=== PATIENT | male | born 1975 | race Caucasian/White ===

== ENCOUNTER → 2018-09-22 08:32 | Outpatient (CLI) | payer OTHER, SELFPAY ==
[2018-09-22 12:12] LABS: Hematocrit 43.1 % (40-54); Hemoglobin 14.5 g/dl (13.0-16.5); Mean Corp Hgb Conc 33.6 g/gl (32-36); Mean Corpuscular Hgb 29.7 pg (27.0-32.0); Mean Corpuscular Volume 88.3 fL (80-94); RBC Distribution Width CV 14.2 % (11.6-14.6); Red Blood Count 4.88 M/mm3 (4.6-6.2); White Blood Count 5.8 K/mm3 (4.4-11.0)
[2018-09-22 12:13] LABS: Absolute Lymphocyte Count 1.93 X10^3/ul (0.83-4.51); Absolute Neutrophil Count 3.1 X10^3/uL (2.0-7.7); Basophil# 0.04 X10^3/uL; Basophil% 0.7 % (0-1); Eosinophil# 0.26 X10^3/uL; Eosinophils% 4.5 % (0-5); Lymphocyte # 1.93 X10^3/ul (4.0); Lymphocyte % 33.1 % (19-41); Mean Platelet Vol. 9.5 fl (6.2-12.0); Monocyte# 0.49 X10^3/uL; Monocyte% 8.4 % (0-10); Neutrophil % 53.1 % (47-70); Platelet Count 257 K/mm3 (150-450); RBC Distribution Width SD 45.8 fl (35.1-43.9)
[2018-09-22 12:18] LABS: POSITIVE COUNT NO; POSITIVE DIFFERENTIAL NO; POSITIVE MORPHOLOGY NO
[2018-09-22 12:42] LABS: Hemoglobin A1c 5.8 % (4.2-6.3)
[2018-09-22 12:47] LABS: Anion Gap 10 (5-15); BUN 15 mg/dL (7-18); BUN/Creat Ratio 20.7 RATIO (10-20); Calcium,Total 8.8 mg/dL (8.5-10.1); Chloride 104 mmol/L (98-107); Creatinine, Serum 0.72 mg/dL (0.70-1.30); EST Glomerular Filtration Rate 126 mL/min (>60); Est Glom Filt Rate - Afr Amer 153 mL/min (>60); Glucose 108 mg/dL (74-106); Potassium 3.8 mmol/L (3.5-5.1); Sodium Level 139 mmol/L (136-145); Thyroid Stim Hormone (TSH) 1.15 uIU/mL (0.358-3.74)
--- OUTSIDE RECORDS SUMMARY | 2018-12-24 19:47 | XMS RPT_ITS ---
:1975 Author Organization [facility] Care Team Providers Name Role Phone Antolin Barron Attending Unavailable Antolin Barron Primary Care Unavailable PROBLEMS PROBLEMS No Problem Records FoundPROCEDURES PROCEDURES No Procedure Records FoundRESULTS RESULTS CBC W/DIFF, AUTOMATED Collected: 09/22/2018 Status: F Source: [place] 8:35 AM [facility] REPOSITORY TYPE CODE TESTS RESULT OUT OF RANGE REFERENCE UNITS LAB L100.1000 4.4-11.0 K/mm3 Normal WBC 5.8 LAB L100.1200 4.6-6.2 M/mm3 Normal RBC 4.88 LAB L100.1300 13.0-16.5 g/dl Normal HGB 14.5 LAB L100.1400 40-54 % Normal HCT 43.1 LAB L100.1500 80-94 fL Normal MCV 88.3 LAB L100.1600 27.0-32.0 pg Normal MCH 29.7 LAB L100.1700 32-36 g/gl Normal MCHC 33.6 LAB L100.1810 11.6-14.6 % Normal RDW CV 14.2 LAB L100.1820 35.1-43.9 fl High RDW SD 45.8 LAB L100.1900 150-450 K/mm3 Normal PLT 257 LAB L100.2000 6.2-12.0 fl Normal MPV 9.5 LAB L100.2100 47-70 % Normal NEUT% 53.1 LAB L100.2200 19-41 % Normal LY% 33.1 LAB L100.2300 0-10 % Normal MONO% 8.4 LAB L100.2400 0-5 % Normal EO% 4.5 LAB L100.2500 0-1 % Normal BASO% 0.7 LAB L100.2550 0.0-0.9 % Normal IM GRAN % 0.200 Result Comment: IG% - Immature Granulocytes (promyelocytes, myelocytes and metamyelocytes) > 1% indicates that a LEFT SHIFT is Present. LAB L100.2620 2.0-7.7 X10 3/uL Normal Absolute Neut 3.1 LAB L100.2720 0.83-4.51 X10 3/ul Normal Absolute Lymph 1.93 Performed By: #### L100.0100 #### [facility] [address] [place], [address] HEMOGLOBIN A1C Collected: 09/22/2018 Status: F Source: [place] 8:35 AM [facility] REPOSITORY TYPE CODE TESTS RESULT OUT OF RANGE REFERENCE UNITS LAB L501.9985 4.2-6.3 % Normal HGB A1C 5.8 Performed By: #### L501.9985 #### [facility] [address] [place], [address] BASIC METABOLIC Collected: 09/22/2018 Status: F Source: [place] PROFILE (BMP) 8:35 AM [facility] REPOSITORY TYPE CODE TESTS RESULT OUT OF RANGE REFERENCE UNITS LAB L501.0100 74-106 mg/dL High GLU 108 Result Comment: Fasting Glucose result from 100 to 125 mg/dL suggests IMPAIRED HOMEOSTASIS per A.D.A. criteria. Please note revised GLUCOSE reference range effective 2017. LAB L501.1000 7-18 mg/dL Normal BUN 15 LAB L501.1100 0.70-1.30 mg/dL Normal CREAT,SERUM 0.72 Result Comment: The validity of the calculated GFR AND GFRAA in patients over 70 years has not been determined. Clinical correlation is essential. LAB L501.1110 >60 mL/min Normal EST GFR 126 Result Comment: Non- GFR Calc LAB L501.1115 >60 mL/min Normal EST GFR - AA 153 Result Comment: GFR Calc LAB L501.1300 10-20 RATIO High BUN/CRE 20.7 LAB L501.2200 8.5-10.1 mg/dL CA Normal 8.8 LAB L501.5300 136-145 mmol/L NA Normal 139 LAB L501.5600 3.5-5.1 mmol/L K Normal 3.8 LAB L501.5900 98-107 mmol/L CL Normal 104 LAB L501.6100 21.0-32.0 mmol/L Normal CO2 25.0 LAB L501.6200 5-15 Normal GAP 10 Performed By: #### L500.2500, L501.9520 #### [facility] [address] [place], [address] THYROID STIM HORMONE Collected: 09/22/2018 Status: F Source: [place] (TSH) 8:35 AM [facility] REPOSITORY TYPE CODE TESTS RESULT OUT OF RANGE REFERENCE UNITS LAB L501.9520 0.358-3.74 uIU/mL Normal TSH 1.15 Performed By: #### L500.2500, L501.9520 #### [facility] [address] [place], [address] ALLERGIES ALLERGIES DATE TYPE / CODE NAME / CODE REACTION SEVERITY SOURCE 08/06/2017 Drug ibuprofen/F Anaphylaxis Unknown [facility] Allergy/4160 [id number]([facility] [address](SNOMED XNORM) Repository CT) ENCOUNTERS ENCOUNTERS ADMIT/DISCHARGE ACCOUNT ADMITTING ENCOUNTER LOCATION SOURCE NUMBER CLASS 09/22/2018 [id number] [facility] ing:[facility] Repository PAYERS PAYERS ENCOUNTER GUARANTOR PAYER SUBSCRIBER SOURCE 09/22/2018 Michele Coronado Primary Michele De Andaoster [id number] Sr Insurance:Ana Paula DelgadoB: [address] Number: [id number] [address]Yrk: [id number] Repository [phone] (HP) e Date:[id number] ELFEGO SANCHEZ [id number]: 09/22/2018 Secondary NOT GIVENUNK Pankaj Insurance:SELF PAY [facility] Number: Effective Repository Date:2018-09-22
== END ==
PROVIDERS: Family Provider Family Medicine; PCP Family Medicine; Visit Provider Family Medicine
DX: I10 Essential (primary) hypertension (principal); E78.5 Hyperlipidemia, unspecified; E66.01 Morbid (severe) obesity due to excess calories; R73.01 Impaired fasting glucose
CPT/HCPCS: 36415; 80048; 83036; 84443; 85025

== ENCOUNTER 2019-12-11 05:24 | Day surgery (SDC) | payer OTHER, SELFPAY ==
--- NOTE | 2019-11-26 17:09 | EKG12_ITS ---
Test Reason : PRE OP Blood Pressure : / mmHG Vent. Rate : 078 BPM Atrial Rate : 078 BPM P-R Int : 136 ms QRS Dur : 108 ms QT Int : 382 ms P-R-T Axes : 035 005 024 degrees QTc Int : 435 ms Normal sinus rhythm Normal ECG Confirmed by MARIBELL KING, DEMETRIO ([id number]), purchase request editor JOVANA LE ([id number]) on 11/30/2019 2:36:28 PM Referred By: Miguelangel Jackson Confirmed By:PABLITO REYNA MD
[2019-11-26 17:19] LABS: Mean Corp Hgb Conc 33.3 g/dL (32-36); Mean Corpuscular Hgb 29.6 pg (27.0-32.0); Mean Corpuscular Volume 88.9 fL (80-94); Mean Platelet Vol. 8.8 fl (6.2-12.0); Platelet Count 295 K/mm3 (150-450); RBC Distribution Width CV 14.4 % (11.6-14.6); RBC Distribution Width SD 46.9 fl (35.1-43.9); Red Blood Count 5.06 M/mm3 (4.6-6.2); White Blood Count 8.7 K/mm3 (4.4-11.0)
[2019-11-26 18:02] LABS: Anion Gap 7 (5-15); BUN 13 mg/dL (7-18); BUN/Creat Ratio 18.9 RATIO (10-20); Calcium,Total 9.4 mg/dL (8.5-10.1); Chloride 102 mmol/L (98-107); Creatinine, Serum 0.69 mg/dL (0.70-1.30); EST Glomerular Filtration Rate 133 mL/min (>60); Est Glom Filt Rate - Afr Amer 161 mL/min (>60); Glucose 96 mg/dL (74-106); Potassium 3.7 mmol/L (3.5-5.1); Sodium Level 136 mmol/L (136-145)
[2019-11-26 19:37] LABS: Hemoglobin A1c 5.5 % (4.2-6.3)
[2019-12-11] VITALS (14 sets, daily range): BP systolic 110–158; BP diastolic 51–96; PULSE 68–83; RESP 16–18; TEMP 36.1–36.8; O2SAT 92–100; BMI 64.7
[2019-12-11] MEDS: Lactated Ringers 1,000 ML 100 ML IV ×3 (07:20→10:47)
[2019-12-11] MEDS: Bupiv/Epi 0.5% Mpf 30 ML Vial (09:00)
[2019-12-11] MEDS: Epinephrine (1 mg/ml) 1 MG/ML VIAL (09:00)
--- NOTE | 2019-12-11 11:14 | PCM.OPRPT ---
Report of Operation Date of Procedure: 12/11/19 Pre-Operative Diagnosis: SAIS, AC arthrosis, roator cuff tear right shoulder Post-Operative Diagnosis: same Surgery/Procedure Performed:: ASD, Mikaela procedure, rotator cuff repair containers sales representative: Miguelangel Jackson Type of Anesthesia:: General Anesthesiologist: Jose Alfredo West - Admit VTE Documentation VTE Present on Admission: No VTE Mechan Device Prophylaxis: SCD's, Thigh High SHAYLA Hose VTE Pharm Prophylaxis ordered?: No Reason prophylaxis not ordered:: Treatment Not Indicated
[2019-12-11] MEDS: HYDROcodone Bitartrate/Apap 5/325 Tablet PO (11:31)
== END 2019-12-11 14:05 | disposition home or self-care (01) ==
LOC: SDC 05:27 → AC 05:27
PROVIDERS: Orthopaedic Surgery; PCP Family Medicine; Referring Provider Physician Assistant; Visit Provider Physician Assistant
PROC: (CPT 29827; principal; 2019-12-11 06:55)
DX: S46.012A Strain of muscle(s) and tendon(s) of the rotator cuff of left shoulder, initial encounter (principal); S46.011A Strain of muscle(s) and tendon(s) of the rotator cuff of right shoulder, initial encounter; Z72.0 Tobacco use; I10 Essential (primary) hypertension; W17.89XA Other fall from one level to another, initial encounter
CPT/HCPCS: 01630; 29824; 29827; 36415; 80048; 83036; 85027; 93005; J7120; J2405

== ENCOUNTER → 2020-02-09 14:42 | Outpatient (CLI) | payer OTHER, SELFPAY ==
[2020-01-20 13:23] VITALS: BMI 64.7
--- NOTE | 2020-02-09 14:43 | CT_ITS ---
STUDY: CT CHEST WITHOUT CONTRAST REASON FOR EXAM: Male, 44 years old. LUNG NODULE RADIATION DOSAGE (If Supplied By Facility): CTDIvol = ( 28.71 ) mGy, DLP = ( 1140.28 ) mGycm TECHNIQUE: Transaxial imaging was performed without the administration of intravenous contrast material. Multiplanar coronal and sagittal images were reformatted. Individualized dose optimization techniques were used for this CT. COMPARISON: None. FINDINGS: Small benign-appearing bilateral axillary lymph nodes. Elevation of the right hemidiaphragm. Mild increase in the markings in the apex of the right lung suggestive of a linear scarring. Mild degree of pleural thickening and increased linear markings along the lateral aspect of the right lower lobe suggestive of a scarring following trauma or postsurgical changes. There is no demonstrated pleural abnormality. Normal heart and pericardium. There are multiple small lymph nodes within the mediastinum, which are normal in size and morphology most compatible with reactive lymph hyperplasia. Normal hilar regions. Normal unenhanced pulmonary arteries. Normal aorta arch and descending thoracic aorta. There are degenerative changes of the thoracic spine. This evidence of prior ORIF of multiple right-sided rib fractures with screw and plate fixation devices. There is no demonstrated abnormality of the visualized upper abdomen. CT/Chest without Contrast IMPRESSION: Mild scarring in the right lung as described. There is evidence of prior ORIF of multiple right-sided rib fractures with underlying pleural thickening and mild scarring. Electronically Signed: Nicanor Leon, at 15:44 EDT , Service support ,
== END ==
PROVIDERS: PCP Family Medicine; Referring Provider Internal Medicine Critical Care Medicine; Visit Provider Internal Medicine Critical Care Medicine
DX: R91.1 Solitary pulmonary nodule (principal)
CPT/HCPCS: 71250

== ENCOUNTER 2020-04-11 07:37 | Day surgery (SDC) | payer OTHER, SELFPAY ==
[2020-01-20 13:23] VITALS: BMI 64.7
--- NOTE | 2020-04-01 11:16 | EKG12_ITS ---
Test Reason : PREOP Blood Pressure : / mmHG Vent. Rate : 077 BPM Atrial Rate : 077 BPM P-R Int : 174 ms QRS Dur : 112 ms QT Int : 380 ms P-R-T Axes : 053 014 035 degrees QTc Int : 430 ms Normal sinus rhythm Normal ECG Confirmed by EVERETT KING, THIAGO ([id number]), television news video editor JOVANA LE ([id number]) on 04/05/2020 11:17:06 AM Referred By: Jean-Claude Ross Confirmed By:THIAGO FLOYD MD
[2020-04-01 11:24] LABS: Hemoglobin 14.4 g/dL (13.0-16.5); Mean Corp Hgb Conc 32.7 g/dL (32-36); Mean Corpuscular Hgb 29.8 pg (27.0-32.0); Mean Corpuscular Volume 90.9 fL (80-94); Mean Platelet Vol. 8.6 fl (6.2-12.0); Platelet Count 227 K/mm3 (150-450); RBC Distribution Width CV 14.2 % (11.6-14.6); RBC Distribution Width SD 46.6 fl (35.1-43.9); Red Blood Count 4.84 M/mm3 (4.6-6.2); White Blood Count 6.3 K/mm3 (4.4-11.0)
[2020-04-01 11:41] LABS: Anion Gap 6 (5-15); BUN 14 mg/dL (7-18); BUN/Creat Ratio 20.2 RATIO (10-20); Calcium,Total 9.1 mg/dL (8.5-10.1); Chloride 105 mmol/L (98-107); Creatinine, Serum 0.69 mg/dL (0.70-1.30); EST Glomerular Filtration Rate 132 mL/min (>60); Est Glom Filt Rate - Afr Amer 159 mL/min (>60); Glucose 125 mg/dL (74-106); Potassium 3.8 mmol/L (3.5-5.1); Sodium Level 139 mmol/L (136-145)
[2020-04-11] VITALS (12 sets, daily range): BP systolic 122–145; BP diastolic 75–94; PULSE 66–85; RESP 16; TEMP 36.1–37.1; O2SAT 92–97; BMI 67.6
[2020-04-11] MEDS: Lactated Ringers 1,000 ML 100 ML IV (08:32)
[2020-04-11] MEDS: Bupiv/Epi 0.5% Mpf 30 ML Vial (10:00)
[2020-04-11] MEDS: Epinephrine (1 mg/ml) 1 MG/ML VIAL (11:30)
[2020-04-11] MEDS: HYDROcodone Bitartrate/Apap 5/325 Tablet PO (14:07)
--- NOTE | 2020-04-11 15:02 | PCM.OPRPT ---
Report of Operation Date of Procedure: 04/11/20 Pre-Operative Diagnosis: SAIS, AC arthrosis, RCT left shoulder Post-Operative Diagnosis: Same with bicicpital tendonitis and massive. RCT Surgery/Procedure Performed:: ASD, Mikaela procedure, biceps tenotomy and RCR left shoulder protective signal installer helper: Miguelangel Jackson Type of Anesthesia:: General Anesthesiologist: Bryce Moran - Admit VTE Documentation VTE Present on Admission: No VTE Mechan Device Prophylaxis: SCD's VTE Pharm Prophylaxis ordered?: No Reason prophylaxis not ordered:: Treatment Not Indicated
== END 2020-04-11 15:08 | disposition home or self-care (01) ==
LOC: SDC 07:37 → AC 07:39
PROVIDERS: Anesthesiology; PCP Family Medicine; Referring Provider Orthopaedic Surgery; Visit Provider Orthopaedic Surgery
PROC: (CPT 29827; principal; 2020-04-11 09:10)
DX: M19.012 Primary osteoarthritis, left shoulder (principal); S46.011D Strain of muscle(s) and tendon(s) of the rotator cuff of right shoulder, subsequent encounter; M75.22 Bicipital tendinitis, left shoulder; I10 Essential (primary) hypertension; Z87.891 Personal history of nicotine dependence; E66.01 Morbid (severe) obesity due to excess calories; Z68.44 Body mass index [BMI] 60.0-69.9, adult
CPT/HCPCS: 01630; 29824; 29827; 29828; 36415; 80048; 85027; 87635; 93005; G2023; J7120; J2405; U0003

== ENCOUNTER → 2020-07-15 20:05 | Outpatient (CLI) | payer OTHER, SELFPAY ==
[2020-06-14 08:11] VITALS: BMI 63.5
== END ==
PROVIDERS: PCP Family Medicine; Referring Provider Nurse Practitioner Acute Care; Visit Provider Nurse Practitioner Acute Care
DX: G47.33 Obstructive sleep apnea (adult) (pediatric) (principal)
CPT/HCPCS: 95811

== ENCOUNTER → 2020-08-05 14:02 | Outpatient (CLI) | payer OTHER, SELFPAY ==
[2020-06-14 08:11] VITALS: BMI 63.5
== END ==
PROVIDERS: PCP Family Medicine; Visit Provider Nurse Practitioner Acute Care
DX: Z46.89 Encounter for fitting and adjustment of other specified devices (principal)

== ENCOUNTER → 2020-09-27 13:00 | Outpatient (CLI) | payer OTHER, SELFPAY ==
[2020-09-13 07:39] VITALS: BMI 60.8
== END ==
PROVIDERS: PCP Family Medicine; Visit Provider Internal Medicine Critical Care Medicine
DX: G47.33 Obstructive sleep apnea (adult) (pediatric) (principal)
CPT/HCPCS: 98960; G0463

== ENCOUNTER → 2020-10-24 08:18 | Outpatient (CLI) | payer OTHER, SELFPAY ==
[2020-10-24 07:48] VITALS: BMI 60.5
[2020-10-24 08:53] LABS: Hematocrit 43.1 % (40-54); Mean Corp Hgb Conc 32.5 g/dL (32-36); Mean Corpuscular Hgb 28.8 pg (27.0-32.0); Mean Corpuscular Volume 88.7 fL (80-94); Mean Platelet Vol. 8.8 fl (6.2-12.0); Platelet Count 254 K/mm3 (150-450); RBC Distribution Width CV 14.4 % (11.6-14.6); RBC Distribution Width SD 46.7 fl (35.1-43.9); Red Blood Count 4.86 M/mm3 (4.6-6.2); White Blood Count 7.9 K/mm3 (4.4-11.0)
[2020-10-24 09:13] LABS: Vitamin B12 905 pg/mL (211-911); Vitamin D,25 Hydroxy 18.2 ng/mL
[2020-10-24 09:24] LABS: AST(SGOT) 10 U/L (15-37); Alanine Aminotransfer ALT/SGPT 33 U/L (16-61); Albumin, Serum 3.9 g/dL (3.2-5.0); Alkaline Phosphatase 76 U/L (45-117); Anion Gap 7 (5-15); BUN 18 mg/dL (7-18); BUN/Creat Ratio 29.6 RATIO (10-20); Calcium,Total 9.2 mg/dL (8.5-10.1); Chloride 107 mmol/L (98-107); Cholesterol 161 mg/dL (200); Creatinine, Serum 0.61 mg/dL (0.70-1.30); EST Glomerular Filtration Rate 153 mL/min (>60); Est Glom Filt Rate - Afr Amer 185 mL/min (>60); Ferritin 275 ng/mL (26-388); Globulin 3.8 g/dL (2.2-4.2); Glucose 110 mg/dL (74-106); High Density Lipoprotein 42 mg/dL; Iron 64 ug/dL (65-175); Magnesium 2.1 mg/dL (1.6-2.6); Potassium 3.8 mmol/L (3.5-5.1); Protein, Total 7.7 g/dL (6.4-8.2); Sodium Level 140 mmol/L (136-145); Thyroid Stim Hormone (TSH) 1.58 uIU/mL (0.358-3.74); Triglycerides 118 mg/dL; Very Low Density Lipoprotein 24 mg/dL (5-40)
[2020-10-28 14:09] LABS: Vitamin B1, Thiamine 126.4 nmol/L (66.5-200.0)
[2020-10-28 20:10] LABS: Zinc, Plasma or Serum 90 ug/dL (44-115)
== END ==
PROVIDERS: PCP Family Medicine; Referring Provider Surgery; Visit Provider Surgery
DX: I10 Essential (primary) hypertension (principal); E66.01 Morbid (severe) obesity due to excess calories
CPT/HCPCS: 36415; 80053; 80061; 82306; 82607; 82728; 82746; 83540; 83735; 84425; 84443; 84630; 85027

== ENCOUNTER → 2020-12-02 09:14 | Outpatient (CLI) | payer OTHER, SELFPAY ==
[2020-10-24 07:48] VITALS: BMI 60.5
--- NOTE | 2020-12-02 09:21 | US_ITS ---
STUDY: ABDOMINAL ULTRASOUND REASON FOR EXAM: Male, 45 years old. ABDOMINAL PAIN -- UNSPECIFIED ABDOMINAL LOCATION,PT DENIES ABD PAIN. PRE-OP FOR BARIATRIC SURGERY. TECHNIQUE: Transabdominal ultrasound was performed with real-time and static lin scale imaging. TECHNICAL QUALITY: Limited. Examination limited due to obesity. COMPARISON: None. FINDINGS: Liver: The liver is mildly enlarged and measures 19.2 cm. There is increased echogenicity consistent with fatty infiltration. The bile ducts are within normal limits. There is hepatic color flow. The direction of portal flow is hepatopetal. There is no demonstrated mass lesion. Portal vein measurement: Gallbladder: Normal distended gallbladder. The gallbladder wall measures 2.0 mm. There is a negative sonographic Spaulding''s sign. There is no pericholecystic fluid. There are no gallstones. Common Bile Duct (C.B.D.): The common bile duct measures 6 mm. Pancreas: There is nonvisualization of the pancreas due to overlying bowel gas. Spleen: Normal size of the spleen. The spleen measures 12.9 cm x 5.4 cm x 5 cm. Right Kidney: Normal size of the right kidney. The right kidney measures 13.1 cm x 6.5 cm x 7.5 cm. Normal renal cortex. The right cortex measures 1.9 cm. There is no demonstrated renal mass or cyst. There is no right hydronephrosis. Left Kidney: Normal size of the left kidney. The left kidney measures 12.3 cm x 6.5 cm x 6.7 cm. Normal renal cortex. The left cortex measures 2.2 cm. There is no demonstrated renal mass or cyst. There is no left hydronephrosis. Aorta: Unremarkable I.V.C.: The IVC is patent. There is no ascites. US/Abdomen Complete IMPRESSION: Mild hepatomegaly and fatty infiltration of liver. Electronically Signed: Nicanor Leon MD at 11:08 EST , Service support ,
--- NOTE | 2020-12-02 09:38 | RAD_ITS ---
EXAMINATION: UPPER GI SERIES INDICATION: Male, 45 years . Abdominal pain. Clearance for bariatric surgery. FLUOROSCOPY TIME (if supplied): (0:50) minutes/seconds TECHNIQUE: Radiographic and fluoroscopic images of the distal esophagus, stomach, and proximal small intestine were obtained following the oral ingestion of barium. COMPARISON: None. FINDINGS: There is no evidence for organomegaly, abnormal calcifications, or abnormal bowel gas pattern. The psoas margins and flank stripes are normal. The visualized osseous structures are normal. The mucosa of the esophagus, stomach and duodenum is normal in appearance without evidence for stricture, ulceration, mass or diverticulum. There is no evidence for hiatal hernia or gastroesophageal reflux. RAD/Upper GI Dual Contrast IMPRESSION: 1. Normal upper gastrointestinal study. Electronically Signed: Nicanor Leon MD at 12:38 EST , Service support ,
== END ==
LOC: RAD 09:19
PROVIDERS: PCP Family Medicine; Referring Provider Surgery; Visit Provider Surgery
DX: R10.9 Unspecified abdominal pain (principal)
CPT/HCPCS: 74246; 76700

== ENCOUNTER → 2023-12-13 | Outpatient (CLI) | payer OTHER, SELFPAY ==
--- OUTSIDE RECORDS SUMMARY | 2023-04-03 19:25 | XMS RPT_ITS | CCD ---
Author Name Unknown Address [address] [place] [address] Organization [facility] Care Team Providers Care Senior Controls Engineer Name Role Phone Antolin Barron Primary Care Provider IBRAHIMA DOUGHERTY Admitting Unavaila DAVID Smith Referring Unavailable TRAUMA SURGEONS [facility] Consulting Camille ANTOLIN Aiken Primary Care Unavailable AMAYA PINEDO Attending Unavailable [facility] Consulting U navailable PENCIL, SELMA GREENE Admitting Unavailable ANTOLIN BARRON Primary Care Unavailable FROY ROY Attending Unavailable FROY ROY Admitting Unavailable ANTOLIN BARRON Primary Care Unavailable ROWAN JACKSON Attending Unavailable ROWAN JACKSON Referring Unavailable ANTOLIN BARRON Primary Care Unavailable ROWAN JACKSON Attending Unavailable ROWAN JACKSON Referring Unavailable ANTOLIN BARRON Primary Care Unavailable Antolin Barron Primary Care Provider Antolin Barron Primary Care Provider [phone] Antolin Barron Primary Care Provider [phone] [facility] Admitting Unava ilable [place]ER[place], [facility] Attending Unava ilable [facility] Primary Care Unava ilable [place]ER[place], [facility] Attending Unava ilable [place], [facility] Primary Care Unava ilable MCARTHUR, [facility] Admitting Unava ilable HOLLIE, [facility] Attending Unavaila ble HOLLIE, [facility] Primary Care Unavaila ble HOLLIE, [facility] Admitting Unavaila Antolin Ervin Primary Care Provider Antolin Barron Primary Care Provider Antolin Barron MD Primary Care Provider ANTOLIN BARRON Primary Care Unavailable OLLIE MEJÍA Attending Unavailbrittany e Antolin Barron Primary Care Provider Antolin Barron Primary Care Provider Brigitte Pathak MD Unavailable [phone] BRIGITTE PATHAK Attending Unavailable [facility] Referring Unavailable ANTOLIN BARRON Primary Care Unavailable Allergies Allergy Classification Reported Allergen(s) Allergy Type Date of Onset Reaction(s) Facility NSAIDs (1 source) Ibuprofen Drug Allergy 04-06-2020 Anaphylaxis [facility] (20 sources) Ibuprofen; Translations: [Unknown] Drug Allergy 06-07-2013 Anaphylaxis [facility] (2 sources) celecoxib Drug Allergy 06-07-2013 [facility] Medications Current Medications Medication Drug Class(es) Dates Sig (Normalized) Sig (Original) Cholecalciferol (2 sources) Vitamin D Cholecalciferol (VITAMIN D3 PO) Take 4,000 Int'l Units by mouth daily 0 Active codeine sulfate 15 mg oral tablet (7 sources) Opioid Agonist take 1 tablet by mouth every six hours as needed for pain codeine 15 MG tablet Take 15 mg by mouth every 6 hours as needed for Pain. 0 Active ferrous sulfate 325 mg oral tablet (2 sources) take 1 tablet by mouth once daily at breakfast ferrous sulfate (IRON 325) 325 (65 Fe) MG tablet Take 325 mg by mouth daily (with breakfast) 0 Active gabapentin 300 mg oral capsule (9 sources) Anti-epileptic Agent Start: 09-07-2019 End: 09-14-2019 gabapentin (NEURONTIN) 300 MG capsule Take 1 (one) capsule (300 mg total) by mouth every 8 (eight) hours (Days supply per fill: 5) . 90 capsule 0 09/14/2019 Active hydroCHLOROthiazide 25 mg / lisinopril 20 mg oral tablet (20 sources) Thiazide Diuretic, Angiotensin Converting Enzyme Inhibitor Start: 12-05-2022 take 1 tablet by mouth in the morning lisinopril-hydroCHL OROthiazide 20-25 MG tablet Take 1 tablet by mouth in the morning. 0 12/05/2022 Active Completed/Discontinued Medications Medication Drug Class(es) Dates Sig (Normalized) Sig (Original) acetaminophen 325 mg oral tablet (7 sources) Start: 09-12-2019 End: 09-14-2019 take 2 tablets by mouth every four hours as needed acetaminophen (TYLENOL) 325 MG tablet Take 2 (two) tablets (650 mg total) by mouth every 4 (four) hours as needed for pain . 30 tablet 0 09/13/2019 09/14/2019 Discontinued (Stop Taking at Discharge) Problems Active Problems Problem Classification Problem Date Documented Da te Episodic/Chronic Blindness and vision defects (4 sources) Bilateral hyperopia of eyes; Translations: [Hypermetropia, bilateral] Onset: 12-31-2022 Episodic Esophageal disorders (11 sources) Gastro-esophageal reflux disease with esophagitis; Translations: [Gastroesophageal reflux disease with esophagitis without hemorrhage] Onset: 07-26-2020 07-26-2020 Chronic Esophageal disorders (2 sources) Esophageal disorders; Translations: [Gastro-esophageal reflux disease with esophagitis, without bleeding] Onset: 07-19-2022 Essential hypertension (20 sources) Hypertensive disorder; Translations: [Essential (primary) hypertension] Onset: 09-07-2019 09-14-2019 Chronic External cause codes: Fall (5 sources) Fall; Translations: [Fall] Onset: 09-07-2019 09-14-2019 Gastritis and duodenitis (4 sources) Chronic superficial gastritis; Translations: [Chronic superficial gastritis without bleeding] Onset: 07-26-2020 07-26-2020 Chronic Gastritis and duodenitis (7 sources) Chronic superficial gastritis; Translations: [Chronic superficial gastritis without bleeding] 07-26-2020 Episodic Other nutritional; endocrine; and metabolic disorders (15 sources) Morbid obesity; Translations: [Morbid (severe) obesity due to excess calories] Onset: 09-08-2019 09-14-2019 Chronic Other nutritional; endocrine; and metabolic disorders (20 sources) Body mass index 40+ - severely obese; Translations: [Morbid (severe) obesity due to excess calories] Onset: 04-07-2020 04-07-2020 Chronic Other nutritional; endocrine; and metabolic disorders (2 sources) Morbid (severe) obesity due to excess calories; Translations: [Morbid (severe) obesity due to excess calories (HCC)] Onset: 07-19-2022 Chronic Other nutritional; endocrine; and metabolic disorders (2 sources) Body mass index (BMI) 60.0-69.9, adult; Translations: [Body mass index (BMI) 60.0-69.9, adult (HCC)] Onset: 07-19-2022 Chronic Residual codes; unclassified (2 sources) Obstructive sleep apnea syndrome; Translations: [Obstructive sleep apnea (adult) (pediatric)] 03-12-2023 Chronic Residual codes; unclassified (5 sources) Radiology result abnormal; Translations: [Abnormal radiograph] Onset: 09-08-2019 09-14-2019 Episodic Residual codes; unclassified (2 sources) Nicotine user; Translations: [Tobacco use] 03-12-2023 Episodic Superficial injury; contusion (2 sources) Contusion of scapular region; Translations: [Contusion of left scapula, initial encounter] Episodic Unclassified (5 sources) Closed fracture of multiple right ribs; Translations: [Multiple closed fractures of ribs of right side] Onset: 09-07-2019 09-14-2019 Past or Other Problems Problem Classification Problem Date Documented Da te Episodic/Chronic Other and unspecified benign neoplasm (11 sources) Gastric polyp; Translations: [Polyp of stomach and duodenum] Onset: 07-26-2020 07-26-2020 Episodic Other fractures (4 sources) Closed fracture of multiple ribs; Translations: [Closed fracture of multiple ribs of right side with routine healing, subsequent encounter] Episodic Other lower respiratory disease (11 sources) Dyspnea; Translations: [Shortness of breath] Onset: 06-17-2020 06-17-2020 Episodic Results Test Name Value Interpretation Reference Range Facil ity Vital Signs Date Time Vital Sign Value Performing Clinician Facility 03-11-2023 13:040 Body height 172.7 cm [employer] Work Phone: [employer] 03-11-2023 13:26-0400 Body mass index (BMI) [Ratio] 62.13 kg/m2 Foxtrot PA Work Phone: [employer] 03-11-2023 13:040 Body temperature 97.59 [degF] Foxtrot PA Work Phone: [employer] 03-11-2023 13:26040 Body weight 185.34 kg [employer] Work Phone: [employer] 03-11-2023 13:26-0400 Diastolic blood pressure 82 mm[Hg] Keara Zupke PA Work Phone: [facility] [employer] 03-11-2023 13:26-0400 Heart rate 68 /min Keara Zupke PA Work Phone: [facility] [employer] 03-11-2023 13:26-0400 Respiratory rate 20 /min Keara Zupke PA Work Phone: [facility] [employer] 03-11-2023 13:26-0400 Systolic blood pressure 130 mm[Hg] Keara Zupke PA Work Phone: [facility] [employer] 07-26-2020 08:55-0400 BP Diastolic 91 mm[Hg] Brigitte FernandezCurioosalejandroPan [employer] [place] 07-26-2020 08:55-0400 BP Systolic 131 mm[Hg] Brigitte FernandezPhoenix [place] 07-26-2020 08:55-0400 Pulse (Heart Rate) 77 /min Brigitte FernandezPhoenix [place] 07-26-2020 08:55-0400 Pulse Oximetry 96 % Brigitte Lolapps [place] 07-26-2020 08:55-0400 Respiratory Rate 18 /min Brigitte FernandezTeramind [place] 07-26-2020 07:50-0400 BMI (Body Mass Index) 63.5 kg/m2 Brigitte FernandezPhoenix [place] 07-26-2020 07:50-0400 Body Temperature 98.4 [degF] Brigitte FernandezTeramind [place] 07-26-2020 07:50-0400 Body weight 195.05 kg Brigitte FernandezTeramind [place] 07-26-2020 07:50-0400 Height 175.3 cm Brigitte FernandezPhoenix [place] 09-24-2019 10:17-0500 BMI (Body Mass Index) 57.25 kg/m2 Froy Roy [facility] 09-24-2019 10:17-0500 Body Temperature 97.7 [degF] Froynathan Spencera [facility] 09-24-2019 10:17-0500 Body weight 180.99 kg Froy Roy [facility] 09-24-2019 10:17-0500 BP Diastolic 78 mm[Hg] Froy Roy [facility] 09-24-2019 10:17-0500 BP Systolic 134 mm[Hg] Froy Roy [facility] 09-24-2019 10:17-0500 Height 177.8 cm Froy Roy [facility] 09-24-2019 10:17-0500 Pulse (Heart Rate) 84 /min Froy Roy [facility] 09-24-2019 10:17-0500 Pulse Oximetry 94 % Froy Roy [facility] 09-24-2019 10:17-0500 Respiratory Rate 16 /min Froy Roy [facility] 09-14-2019 13:29-0500 Respiratory Rate 16 /min Pedro Correa [facility] 09-14-2019 11:36-0500 Body Temperature 97.5 [degF] Pedro Correa [facility] 09-14-2019 11:36-0500 BP Diastolic 91 mm[Hg] Pedro Correa [facility] Encounters Encounter Date Encounter Type Care Provider Facility Start: 03-11-2023 End: 03-11-2023 ambulatory BRIGITTE PATHAK [facility] Start: 03-11-2023 End: 03-11-2023 Office outpatient visit 25 minutes Brigitte Pathak MD Work Phone: [facility] [place] Procedures Date Procedure Procedure Detail Performing Clinician Start: 09-27-2020 Echo tthrc r-t 2d w/wom-mode compl spec&colr d Andrea Dawn Work Phone: Start: 07-26-2020 ENDOSCOPY REPORT 3m Scanning Start: 10-23-2019 Mri any jt upper ext remity w/o contrast matrl External Transcribed Start: 10-23-2019 Mri any jt upper ext remity w/o contrast matrl External Transcribed Start: 09-14-2019 Basic metabolic 2000 panel - Serum or Plasma Froy Domenic Roy Work Phone: Start: 09-14-2019 Complete blood count (hemogram) panel - Blood by Automated count Froy Roy Work Phone: Start: 09-12-2019 Radiologic exam ches t single view Breonna Nicole Work Phone: Start: 09-12-2019 Radiologic exam ches t single view Jose P Ingersol Work Phone: Start: 09-11-2019 Radiologic exam ches t single view Jose P Ingersol Work Phone: Start: 09-10-2019 Radiologic exam ches t single view Jose P Ingersol Work Phone: Start: 09-10-2019 Basic metabolic 2000 panel - Serum or Plasma Jose P Ingersol Work Phone: Start: 09-10-2019 Complete blood count with white cell differential, automated Jose P Ingersol Work Phone: Start: 09-10-2019 Complete blood count with white cell differential, manual Jose P Ingersol Work Phone: Start: 09-09-2019 Radiologic exam ches t single view Jose P Ingersol Work Phone: Start: 09-09-2019 Gas panel - Arterial blood Jose P Ingersol Work Phone: Start: 09-09-2019 Basic metabolic 2000 panel - Serum or Plasma Jose P Ingersol Work Phone: Start: 09-09-2019 Complete blood count with white cell differential, automated Jose P Ingersol Work Phone: Start: 09-09-2019 Complete blood count with white cell differential, manual Jose P Ingersol Work Phone: Start: 09-08-2019 Gas panel - Arterial blood Jose P Ingersol Work Phone: Start: 09-08-2019 Evaluation of arteri al blood gas studies Generic [facility] Work Phone: Start: 09-08-2019 Radiologic exam ches t single view Jose P Ingersol Work Phone: Start: 09-08-2019 End: 09-08-2019 THORACOPLASTY WITH RIB FIXATION Phoenix Chris Work Phone: Start: 09-08-2019 Drugs of abuse urine screening test Franci Mccartney Work Phone: Start: 09-08-2019 Urinalysis Franci Mccartney Work Phone: Start: 09-08-2019 Basic metabolic 2000 panel - Serum or Plasma Franci Mccartney Work Phone: Start: 09-08-2019 Complete blood count (hemogram) panel - Blood by Automated count Franci Mccartney Work Phone: Start: 09-08-2019 Radiologic exam ches t single view Brisa Miranda Work Phone: Start: 09-08-2019 12 lead ECG Bryce Verde Work Phone: Start: 09-07-2019 Blood group typing Ciro Mccartney Work Phone: Start: 09-07-2019 Radiographic imaging procedure External Transcribed Start: 09-07-2019 End: 09-07-2019 Computerized tomography, limited studies External Transcribed Start: 09-07-2019 Basic metabolic 2000 panel - Serum or Plasma Franci Mccartney Work Phone: Start: 09-07-2019 Blood type and Indir ect antibody screen panel - Blood Franci Mccartney Work Phone: Start: 09-07-2019 Complete blood count (hemogram) panel - Blood by Automated count Franci Mccartney Work Phone: Start: 09-07-2019 Ethanol [Mass/volume ] in Serum or Plasma Franci Mccartney Work Phone: Start: 09-07-2019 MANZANO TOP Pedro Correa Work Phone: Start: 09-07-2019 INR in Platelet poor plasma by Coagulation assay Franci Mccartney Work Phone: Start: 09-07-2019 LIGHT GREEN TOP Pedro Lissette is Jenna Correa Work Phone: Start: 09-07-2019 RAINBOW DRAW Pedro Loki Jenna Javon Work Phone: Start: 09-07-2019 Radiologic exam ches t single view Renee Elizalde Work Phone: Plan of Treatment Date Care Activity Detail Author Start: 2026 Zoster Vaccines (1 of 2) Zoster Vaccines (1 of 2) [facility] Start: 06-07-2023 Influenza vaccination Influenza Vaccine (Season Ended) [facility] Start: 10-07-2022 DEPRESSION ASSESSMENT DEPRESSION ASSESSMENT [facility] Start: 06-07-2022 Influenza vaccination INFLUENZA (#1) [facility] Start: 2021 COLOGUARD (FIT-DNA) COLOGUARD (FIT-DNA) [facility] Start: 2021 Colonoscopy COLONOSCOPY [facility] Start: 2021 COLORECTAL CANCER SCREENING COLORECTAL CANCER SCREENING [facility] Start: [address] COLONOGRAPHY [facility] Start: 2021 DIABETES SCREEN DIABETES SCREEN [facility] Start: 2021 FECAL OCCULT BLOOD FECAL OCCULT BLOOD [facility] Start: 2021 SIGMOIDOSCOPY SIGMOIDOSCOPY [facility] Start: 06-07-2021 Influenza vaccination Flu vaccine (Season Ended) [facility] Work Phone: Start: 01-25-2021 End: 01-25-2021 Office Visit 01/25/2021 Office Visit Weight Management Jessica Correa MD [address] [place], [place] [id number] [facility] Start: 12-02-2020 End: 12-02-2020 Office Visit 12/02/2020 Office Visit Weight Management Jessica Correa MD [address] [place], [place] [id number] [facility] Start: 10-28-2020 End: 10-28-2020 Office Visit 10/28/2020 Office Visit Weight Management Jessica Correa MD [address] [place], [place] [id number] [facility] Start: 09-28-2020 End: 09-28-2020 Office Visit 09/28/2020 Office Visit Weight Management Jessica Correa MD [address] [place], [place] [id number] [facility] Start: 09-27-2020 End: 09-27-2020 Appointment 09/27/2020 Appointment Echocardiography [facility] Start: 08-05-2020 End: 08-05-2020 Office Visit 08/05/2020 Office Visit Weight Management Jessica Correa MD [address] [place], [place] [id number] [facility] Start: 07-26-2020 End: 07-26-2020 Appointment 07/26/2020 Appointment IP Unit Brigitte Pathak MD [address] [place] [address] [phone] [facility] Start: 06-17-2020 End: 06-17-2020 Office Visit 06/17/2020 Office Visit Cardiology Andrea Dawn MD [address] [place], [place] [id number] [facility] Start: 06-08-2020 End: 06-08-2020 Office Visit 06/08/2020 Office Visit Psychology Azul Chong, PhD [address] [place], [place] [id number] [facility] Start: 06-07-2020 Influenza vaccination Flu vaccine (#1) [facility] [place] Start: 05-20-2020 End: 05-20-2020 Office Visit 05/20/2020 Office Visit Weight Management Jessica Correa MD [address] [place], [place] [id number] [facility] Start: 05-02-2020 End: 05-02-2020 Office Visit 05/02/2020 Office Visit Weight Management Erlinda Chacon, [place], LD [address] [place] [address] [phone] [facility] Start: 04-27-2020 End: 04-27-2020 Office Visit 04/27/2020 Office Visit Psychology Azul Chong, PhD [address] [facility] [address] [place] [address] [phone] [facility] Start: 11-23-2019 End: 11-23-2019 Follow-Up 11/23/2019 Follow-Up General Surgery Phoenix Chris MD [address] [facility] [address] [place] [address] [phone] [facility] Start: 10-13-2019 End: 10-13-2019 Follow-Up 10/13/2019 Follow-Up General Surgery Phoenix Chris MD [address] [facility] [address] [place] [address] [phone] [facility] Start: 09-24-2019 End: 09-24-2019 Office Visit 09/24/2019 Office Visit Trauma Surgery Selma Healy, [employer] [address] [place] [address] [phone] [facility] Start: 06-07-2019 Influenza vaccination given SEQUENTIAL INFLUENZA VACCINE (#1) [facility] Start: 2016 Diabetes screen Diabetes screen [place], [place] Start: 2016 Lipid panel Lipid screen [place], [place] Start: 2011 LIPID SCREEN LIPID SCREEN [facility] Start: 1995 DTaP/Tdap/Td vaccine (1 - Tdap) DTaP/Tdap/Td vaccine (1 - Tdap) [place], [place] Start: 1995 DTaP/Tdap/Td Vaccines (1 - Tdap) DTaP/Tdap/Td Vaccines (1 - Tdap) [facility] Start: 1995 Urine microalbumin profile DTAP,TDAP,TD (1 - Tdap) [facility] Start: 1994 Diabetes mellitus screening Diabetes Screening [facility] Start: 1994 HEPATITIS C SCREENING HEPATITIS C SCREENING [facility] Start: 1994 Hepatitis C screening Hepatitis C Screening [facility] Start: 1994 HIV SCREENING HIV SCREENING [facility] Start: 1992 COVID-19 Vaccine (1) COVID-19 Vaccine (1) [facility] Work Phone: Start: 1991 HIV screening HIV screen [place], [place] Start: 1988 Depression Screening Depression Screening [facility] Start: 1983 DTaP/Tdap/Td Vaccines (1 - Tdap) DTaP/Tdap/Td Vaccines (1 - Tdap) [facility] Start: 1979 History and physical examination, annual for health maintenance Wellness Visit [facility] Start: 1977 MMR Vaccines (1 of 1 - Standard series) MMR Vaccines (1 of 1 - Standard series) [facility] Start: 01-02-1977 COVID-19 Vaccine (#1) COVID-19 Vaccine (#1) [facility] Start: 1976 Creatinine measurement Creatinine monitoring [place], [place] Start: 1976 HEPATITIS B (1 of 3 - 3-dose series) HEPATITIS B (1 of 3 - 3-dose series) [facility] Start: 1976 Hepatitis B Vaccines (1 of 3 - 3-dose series) Hepatitis B Vaccines (1 of 3 - 3-dose series) [facility] Start: 1976 Hepatitis C screening Hepatitis C screen [place], [place] Start: 1976 HIV screening HIV Screening [facility] Start: 1976 Lipid panel Lipid Panel [facility] Start: 1976 Potassium monitoring Potassium monitoring [place], [place] Start: 1976 Screening for malignant neoplasm of colon [facility] Start: 1976 Tetanus vaccination TETANUS EVERY 10 YR [facility] Payers Date Payer Category Payer Unknown [id number] 2020 Unknown [id number] 2020 Private Health Insurance CIGNA CIGNA HMO xxxxxxxxxxxxx 2020-Present [phone] [address] [place] [phone] xxxxxxxxxxxxx [id number] 2020 Private Health Insurance CIGNA CIGNA HMO [id number] 2020-Present [phone] [address] [place] [id number] 2020 Private Health Insurance CIGNA CIGNA HMO [id number] 2020-Present [phone] [address] [place] [address] [id number] 2019 Unknown xxxxxxxxxxx [id number] 2019 Unknown [id number] 1976 Unknown [id number] 1976 Unknown [id number] 1976 Unknown [id number] 1976 Unknown [id number] 1976 Unknown [id number] Social History Date Type Detail Facility Start: 09-09-2019 End: 09-24-2019 Tobacco smoking status [facility] Never smoker [facility] History of tobacco use Chews Tobacco [facility] Start: 09-09-2019 End: 03-11-2023 Alcohol intake Current drinker of alcohol (finding) [facility] Start: 09-08-2019 Alcohol Comment occ alcohol, sociall y [facility] Start: 1976 Sex Assigned At Not on file [facility] Start: 04-07-2020 End: 03-11-2023 Tobacco smoking status NHIS Former smoker [facility] End: 04-06-2000 History of tobacco use Current smoker [employer] [facility] Start: 04-06-2020 Alcohol Comment occasionally [facility] [email or web address] [facility] Start: 04-22-2020 End: 03-11-2023 Tobacco use and exposure Current user [employer] [facility] Start: 07-26-2020 End: 09-25-2022 [facility] [employer] Start: 03-01-2023 End: 03-11-2023 Exposure to SARS-CoV-2 (event) [facility] sure [facility] Start: 04-06-2020 Alcohol Comment occasionally [employer] Work Phone: End: 04-06-2000 History of tobacco use Cigarette Smoker [facility] Start: 12-31-2022 Alcohol Comment rarely [facility] Start: 03-11-2023 History of Social function [facility] Start: 03-11-2023 Tobacco use panel [facility] Start: 03-11-2023 Tobacco Comment 1 pack per wee k- tobacco pouches [facility] Start: 03-11-2023 Alcohol Comment 1/ week [facility] Procedure Code Equipment Code Equipment Origin al Text Equipment Identifier Dates 50 Mm U Plus Rib Plate [id number] Start: 09-08-2019 Screw 2.7 X 10mm Locking Ribloc U Plus - [id number] Start: 09-08-2019 10mm X 2mm (Gree n) U Plus 90 Drill [id number] Start: 09-08-2019 History of Present illness Narrative 03-11-2023 MARIA FERNANDA Lewis - 03/11/2023 1:30 PM EDTJeanil Gonsalez MA - 03/11/2023 1:30 PM EDT Note Date & Type Note Facility 06-05-2023 History of Presen t illness Narrative Images from the original note were not included. [facility] SURGICAL PROGRAM Re- EVALUATION Patient: Mik Zamora Date of : 1975 Service Date: 03/11/23 Patient History: The patient is a pleasant 47 y.o. year old male with morbid obesity, who stands Height: 5' 8 (172.7 cm) tall with a weight of Weight: (!) 408 lb 9.6 oz (185 kg) , resulting in a BMI of Body mass index is 62.13 kg/m . He is interested in discussing weight loss surgery. The patient suffers from multiple co-morbidities as a result of morbid obesity, including: KERRY, HTN Initial surgical consult on 04/07/[address] Pathak. Patient completed most of the workup throughout 2019 and 2020 but was unable to go through surgery at that time as insurance changed and no longer carried the benefit for surgery. Office notes reviewed: Sunny 01/25/21 Lawson 04/07/2020 PMHx: Past Medical History: Diagnosis Date Arthritis knees, hands, elbows Hypertension Hypertension Joint pain Joint pain, knee Morbid (severe) obesity due to excess calories (HCC) 07/15/2020 Sleep apnea Co-Morbidity Assessment Co-Morbidity Initial Evaluation Today s Visit Type 2 DM no HTN yes KERRY yes GERD no Elevated CHO/Lipids no Depression no The patient denies a history of myocardia infarction, deep vein thrombosis, pulmonary embolism, renal failure, hepatic failure, stroke, and seizure. PSHx: Past Surgical History: Procedure Laterality Date ANTERIOR CRUCIATE LIGAMENT REPAIR Right 1996 FOOT SURGERY Left 1993 pinning of metatarsal KNEE ARTHROSCOPY Left 08/2017 OTHER SURGICAL HISTORY 2019 plates on 6 rIbs s/p fall OTHER SURGICAL HISTORY Right Rib Plates OTHER SURGICAL HISTORY L Knee Meniscus Tear OTHER SURGICAL HISTORY R Knee ACL ROTATOR CUFF REPAIR Bilateral 12/2019 TONSILLECTOMY (HISTORICAL) UPPER GASTROINTESTINAL ENDOSCOPY 07/26/2020 Dr. Alanis Social History: This patient is unaccompanied for the evaluation today, He does use chewing tobacco and does drink alcohol-twice a month. Review of Systems Constitutional: Negative for chills and fever. HENT: Negative for congestion, sore throat and trouble swallowing. Respiratory: Negative for cough and shortness of breath. Cardiovascular: Negative for chest pain and palpitations. Gastrointestinal: Negative for abdominal pain, constipation, diarrhea, nausea and vomiting. Genitourinary: Negative for dysuria and frequency. Musculoskeletal: Positive for arthralgias. Negative for back pain. Skin: Negative for color change. Neurological: Negative for dizziness and light-headedness. Psychiatric/Behavioral: The patient is not nervous/anxious. Physical Examination: BP 130/82 Pulse 68 Temp 36.4 C (97.6 F) Resp 20 Ht 5' 8 (1.727 m) Wt (!) 408 lb 9.6 oz (185 kg) BMI 62.13 kg/m General: This patient is awake, alert, and oriented, and is in no apparent distress. Respiratory: Non-labored breathing Abdomen: Centrally obese, large pannus, firm, non-tender, non-distended without masses/ No evidence of abdominal hernia / No prior abdominal surgery and no scars are noted. Head and Neck: Obese, normocephalic and atraumatic. Soft and supple. Extremities: No cyanosis, clubbing or edema/ No calf tenderness/No restrictions of movement, is ambulatory without assistance. Neurological: Intact x 4 extremities, no focal deficits notes. Skin: No rashes or lesions noted. Rectal: Not Done Hernia: no hernias found on exam Assessment: The patient has failed multiple attempts at non-surgical weight loss, and is now seeking surgical intervention to promote permanent and consistent weight loss. He has chosen Laparoscopic Sleeve Gastrectomy and Laparoscopic Liver Biopsy. He is well educated regarding it, as he has recently viewed our weight loss surgery informational seminar . In anticipation of weight reductive surgery now or in the future, we spent a great deal of time discussing the risks and benefits of, including but not limited to injury to intra-abdominal organs, breakdown of the gastric staple line, the need for re-operative therapy, prolonged hospitalization, mechanical ventilation, and . We discussed the possibility of bleeding, the need for blood transfusions, blood clots, hospital-acquired and intra-abdominal infection, anastomotic stricture, and worsening GERD. And we discussed the need for post-operative visit compliance, behavior modifications and diet changes, protein and vitamin supplementation, as well as routine scheduled and dedicated exercise. We discussed the potential weight loss benefit of approximately 60-70% of his excess body weight at 12-18 months post-op (LRYGB) and 50% of his excess body weight loss at 12-18 months after a LSG, as well as the possibility of insufficient weight loss or weight gain after 2 years post-operative time. Upon completion of all required pre-operative testing we will submit for insurance pre-authorization. All female patients of childbearing age were advised to refrain from becoming for 12-18 months after weight loss surgery. I advised them to discuss with their physician/automatic blocker regarding contraception to prevent during this period of time after surgery. In addition, all patients were counseled on compliance with prescribed vitamin supplementation, office visit follow-up and compliance with program standards. Plan: I have recommended proceeding with the evaluation, workup and curriculum consultant preoperative consultations and testing for the primary procedure as outlined below: BARIATRIC AND METABOLIC SURGERY [facility] PATIENT SUMMARY Mik Pathak 47 y.o. male with Body mass index is 62.13 kg/m . Planned Procedures: Laparoscopic Sleeve Gastrectomy and Laparoscopic Liver Biopsy DM[] HTN[x] KERRY[x] GERD[] HL[] OA[] TOB[x] Date of Surgery: TBD BRO BARRON INITIAL PRE-OP TESTING ORDERS/ RESULTS Labwork [x] CMP, TSH, Fasting Lipid Profile, Mg, Zinc, Vit B1 (whole blood), Vit B12, 25-OH Vit D, Fe, Ferritin, Folate, Hgb A1c EGD [] Dx: [] GERD [] Dyspepsia [] Other [] Not ordered Pathology [x] H. pylori [] Negative [] Positive [x] Stool Antigen UGI [x] US Abdomen [] [] S/p savana [x] Not ordered KERRY eval [] [x] On CPAP / Obtain settings Toxicology [] [] Urine drug screen/ETOH [] Nicotine Additional [] INITIAL CONSULTATIONS ORDERED CLEARANCE / MANAGEMENT Psychology [x] Dietitian [x] Cardiology [x] Pulmonary [x] Others [] []Heme/Onc []Pain mgmt []Other: PSD [x] Physician supervised diet: []None [x]3 mos []6 mos Preop diet [x] Preop low calorie diet: []1 wk [x]2 wks [] Other: FINAL PRE-OP TESTING ORDERS RESULTS Labwork [x] [x] CBC [x]BMP [x]Serum Nicotine / Cotinine EKG [x] CXR [] POST-OP MEDICATIONS Ulcer Ppx [] Omeprazole 20 mg PO []QD Gallstone Ppx [] Ursodiol 300 mg []BID DVT Ppx [] DVT prophylaxis per final preop visit estimated risk Estimated calculated risk: % Schedule final pre-operative office visit with surgeon, pre-operative education class, and pre-operative exercise class prior to date of surgery After much discussion with patient regarding post op expectations for recovery and need for possibility of 4 weeks off work he opted to put program on hold for a few months and begin closer to the end of this year 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 He has a 3 month D&E requirement so will begin diet and exercise in August. Will schedule first D&E and set a reminder to enter other orders closer to that time frame. Patient is a current chewing tobacco user and we discussed the need for cessation of all nicotine products confirmed with a nicotine screen prior to proceeding with surgery. I met with his today to discuss risks and benefits of laparoscopic weight loss surgery, the risks and benefits are outlined as above and visual aids were used to describe the procedure. I personally performed the evaluation and management of Mik Zamora in the development of a treatment plan for this patient. I personally interviewed the patient and performed an individual physical examination. In addition, I discussed the patient's condition and treatment options with them. I have also reviewed and agree with the past medical, family and social history unless otherwise noted. All of the patient's questions were answered. I discussed/counseled the patient regarding the risks and benefits of surgery as well as the preoperative and postoperative care plan for this patient. The patient was seen and examined independently and relevant data reviewed by myself. A full chart review was performed. Due to the complexity of the patients condition as well as having at least one medical condition as listed above in medical history that is progressing despite medical management, this patient is considered high medical decision making and surgical intervention is necessary to help decrease the risk of continued chronic illness. The patient was seen and examined independently and relevant data reviewed by myself. A full chart review was performed. Patient Care Team: Antolin Barron as PCP - General Brigitte Pathak MD as Surgeon (General Surgery) [facility]NAG[facility] Rooming Note - INITIAL CONSULTATION Patient: Mik Zamora Date of : 1975 Service Date: 03/11/2023 Patient is here today to discuss the possibility of weight loss surgery. This patient is alone for the evaluation today REEVALUATION he is interested in discussing weight loss surgery. Physician Supervised D/E: 3M Weight Metrics: Baseline Measures Initial Height: 5' 8 (172.7 cm) Initial Weight: 408 lb 9.6 oz (185 kg) Initial BMI: 62.12 Initial EBW: 254 lb 9.6 oz (115 kg) Initial Waist Cricumference: 72in Initial Neck Circumference: 19in Falls Risk Assessment Patient doestake medications which affect BP or mental status Patient does not have newly prescribed or changed dosage of medications within past 30 days which affect BP or mental status Patient has not fallen in the past 2 months Patient does not demonstrate unsteady gait Patient uses the following ambulatory assistive devices: NONE Patient is low risk for falls. If high or moderate risk, patient instructed not to ambulate independently in the Center, and cord for call light placed within reach of patient. History of Difficult Intubation: No Patient is not on home O2 Completed by: Joyce Gonsalez MA documented in this encounter [facility] [employer] Telephone encounter Note 01-07-2023 Telephone Encounter - MARIA FERNANDA Lewis - 01/07/2023 3:57 PM EDT Note Date & Type Note Facility 01-07-2023 Telephone encounter Note Brien Doty, can schedule with me in March, [employer] Work Phone: Note 01-07-2023 Telephone Encounter - MARIA FERNANDA Lewis - 01/07/2023 3:57 PM EDTTelephone Encounter - Lalitha Pereira - 01/07/2023 3:50 PM EDT Note Date & Type Note Facility 01-07-2023 Miscellaneous Notes Formattin g of this note might be different from the original. Brien Doty, can schedule with me in March, [place], This patient saw Dr. Pathak for his initial consult on 04/07/20. Patient wants to start program again. Will he be scheduled with you or JDouglsa? documented in this encounter [facility] Telephone encounter Note 01-07-2023 Telephone Encounter - Lalitha Pereira - 01/07/2023 3:50 PM EDT Note Date & Type Note Facility 01-07-2023 Telephone encounter Note Form atting of this note might be different from the original. [place], This patient saw Dr. Pathak for his initial consult on 04/07/20. Patient wants to start program again. Will he be scheduled with you or JZ? [facility] [employer] Progress note 12-31-2022 Note Date & Type Note Facility 12-31-2022 Note HNO ID: [id number] Author: Ollie Mejía OD Service: ? Author Type: FAMILY PRESERVATION OFFICER Type: Progress Notes Filed: 12/31/2022 10:11 AM Note Text: ASSESSMENT/PLAN: 1. Hyperopia, bilateral - ICD9: 367.0, ICD10: H52.03 (primary diagnosis) 2. Regular astigmatism, bilateral - ICD9: 367.21, ICD10: H52.223 3. Presbyopia - ICD9: 367.4, ICD10: H52.4 Discussed the option of progressive (no line), bifocals or reading glasses. Recommended yearly exams. Ollie Mejía, MEAGHAN I have confirmed and edited as necessary the relevant ophthalmic history, ROS, and the neuro exam findings as obtained by others. [facility] Instructions 12-31-2022 Patient Instructions Note Date & Type Note Facility 12-31-2022 Instructions Ollie Mejía OD - 12/31/2022 10:10 AM EDT ASSESSMENT/PLAN: 1. Hyperopia, bilateral - ICD9: 367.0, ICD10: H52.03 (primary diagnosis) 2. Regular astigmatism, bilateral - ICD9: 367.21, ICD10: H52.223 3. Presbyopia - ICD9: 367.4, ICD10: H52.4 Discussed the option of progressive (no line), bifocals or reading glasses. Recommended yearly exams. documented in this encounter [facility] History of Present illness Narrative 12-31-2022 Ollie Mejía, OD - 12/31/2022 10:08 AM EDT Note Date & Type Note Facility 12-31-2022 History of Presen t illness Narrative ASSESSMENT/PLAN: 1. Hyperopia, bilateral - ICD9: 367.0, ICD10: H52.03 (primary diagnosis) 2. Regular astigmatism, bilateral - ICD9: 367.21, ICD10: H52.223 3. Presbyopia - ICD9: 367.4, ICD10: H52.4 Discussed the option of progressive (no line), bifocals or reading glasses. Recommended yearly exams. lOlie Mejía, OD I have confirmed and edited as necessary the relevant ophthalmic history, ROS, and the neuro exam findings as obtained by others. documented in this encounter [facility] Evaluation note Note Date & Type Note Facility documented in this encounter [facility] Evaluation note Note Date & Type Note Facility documented in this encounter [facility] Reason for Referral Status Reason Specialty Diagnoses / Procedures Referred By Contact Referred To Contact Pending Review Specialty Services Required/[facility] Diagnoses Closed fracture of multiple ribs with routine healing, unspecified laterality, subsequent encounter Amaya Pinedo MD [address] [facility] [address] [place] [address] Status Reason Specialty Diagnoses / Procedures Referred By Contact Referred To Contact Authorized Specialty Services Required/[facility] Diagnoses Closed fracture of multiple ribs with routine healing, unspecified laterality, subsequent encounter Closed fracture of multiple ribs of right side with routine healing, subsequent encounter Abnormal radiograph Morbid obesity (HCC) Lennox Noble MD [address] [place] [address] Status Reason Specialty Diagnoses / Procedures Referre d By Contact Referred To Contact Closed Radiology Diagnoses Contusion of left scapula, initial encounter Procedures MR Shoulder Left Without Contrast Rowan Jackson PA-C [address] [facility] [address] [place] [address] Status Reason Specialty Diagnoses / Procedures Referre d By Contact Referred To Contact Closed Radiology Diagnoses Contusion of right scapula, initial encounter Procedures MR Shoulder Right Without Contrast Rowan Jackson PA-C [address] [facility] [address] [place] [address] Hospital Course * Ruslan Susannah Leigh, SANDAL PARTS ASSEMBLER - 09/14/2019 9:10 AM EST DISCHARGE SUMMARY Patient: Solomon Zamora Date of : 1975 Site: [facility] Provider: Antolin Barron MD Admit Date: 09/07/2019 Discharge Date/Time: 09/13/19 Disposition: Home Health Care Services Clinical Summary Hospital Course: Solomon Zamora is a 44 y.o. male patient of Antolin Barron MD with a history of HTN and morbid obesity who presented 09/08/2019 as a trauma s/p fall. Patient reportedly slipped on ice and fell offof a deer/tree stand, from a heigh of 4-6 feet. He states I did a belly flop , landing on his anterior abdomen. He denies head strike or LOC. No AC/AP. Patient was initially evaluated at an H ([place]) where imaging demonstrated R lateral 3rd-8th rib fractures with a small R PTX and trace R pleural effusion. He was transferred to [facility] for further evaluation. Injuries: Right 3rd-8th rib fractures Procedures: Right 3rd-5th and 7-8th rib plating/fixation with Dr. Chris on 09/08/2019 The patient is resting comfortably in bed, in no apparent distress. He is alert and oriented and able to participate in the exam. NESS x4, follows commands appropriately, and denies issue at this time. Vital signs stable. See below for continued plan of care. After collaboration with the multidisciplinary team, the patient was discharged with appropriate resources and follow up. At the time of discharge, the patient was tolerating a diet, had good pain control and was in a medically stable condition. Patient discharged home. Discharge Diagnoses: Morbid obesity (HCC) Assessment & Plan Noted on admission with BMI 57 - Encouraged dietary changes and exercise when able - F/u with PCP at discharge Abnormal radiograph Assessment & Plan Trauma imaging showed incidental findings including - 7 mm subpleural nodule in the right middle lobe, adjacent to the major fissure. 5 mm subpleural nodule in the right middle lobe - Fatty infiltration of liver - 1.8 cm L renal cyst Will discuss with patient prior to discharge. Follow-up with PCP as an outpatient. Hypertension Assessment & Plan Per history - Continued home meds - Medicine followed Fall Assessment & Plan Mechanical fall (slipped on ice) from deer/tree stand (4-6 feet high) onto anterior abdomen. No head strike, no LOC, no AC/AP. GCS 15. No focal neurological deficits. HDS. - [facility] imaging: CT H, Cs, CAP, CXR with multiple R rib fractures, otherwise negative - [facility] CT C-spine negative for acute injury; C-spine cleared - [facility]: CXR - Pain/nausea controlled - PT/OT - Dispo plan home today with [facility] * Multiple closed fractures of ribs of right side Assessment & Plan [facility] CT CAP with mildly displaced R lateral 3rd-6th rib fractures and nondisplaced 7th-8th rib fractures. Tiny R pneumothorax and trace R pleural effusion noted - S/p rib fixation 09/[address] Dot with Exparel block - CT d/c'd 09/12 - Cardiac monitoring - O2 PRN for O2 sat <92% - Aggressive pulmonary hygiene/IS/Acapella - Multimodal pain control - PT/OT daily. OOB TID Surgeries: 09/08/19 THORACOPLASTY WITH RIB FIXATION Consults: Procedures Hospitalize Patient To : Inpatient consult to Utilization Management & Care Coordination Inpatient consult to Hospitalist Allergies: Motrin [ibuprofen] Discharge Diet: Resume home diet Condition: Good Discharge Medications: Current Discharge Medication List START taking these medications Details gabapentin (NEURONTIN) 300 MG capsule Take 1 (one) capsule (300 mg total) by mouth every 8 (eight) hours (Days supply per fill: 5) . Qty: 90 capsule, Refills: 0 lidocaine (LIDODERM) 5 % patch Place 1 (one) patch on the skin daily Remove & Discard patch within 12 hours or as directed by MD Start: 09/14/19. Qty: 30 patch, Refills: 0 methocarbamol (ROBAXIN) 500 MG tablet Take 1 (one) tablet (500 mg total) by mouth 3 (three) times aday as needed for muscle spasms . Qty: 10 tablet, Refills: 0 oxyCODONE (ROXICODONE) 5 MG immediate release tablet Take 1 (one) tablet to 2 (two) tablets (5-10 mg total) by mouth every 6 (six) hours as needed (Days supply per fill: 5) . Qty: 20 tablet, Refills: 0 Associated Diagnoses: Closed fracture of multiple ribs of right side with routine healing, subsequent encounter polyethylene glycol (MIRALAX) 17 gram powder Take 17 (seventeen) g by mouth daily Hold for loose stools for 7 days Start: 09/13/19. Qty: 255 g, Refills: 0 CONTINUE these medications which have CHANGED Details acetaminophen (TYLENOL) 325 MG tablet Take 2 (two) tablets (650 mg total) by mouth every 4 (four) hours as needed for pain . Qty: 30 tablet, Refills: 0 CONTINUE these medications which have NOT CHANGED Details hydroCHLOROthiazide (MICROZIDE) 12.5 mg capsule Take 12.5 mg by mouth daily . Physician(s) Family Provider: Antolin Barron MD, Address: [address] [place] [address] / [facility] [address] Follow Up: Antolin Barron MD [address] [place] [address] [id number] Follow up Follow up 1-2 weeks after trauma. [facility] [address] [facility] [facility] [address] [facility] [id number] Follow up Follow up in 1-2 weeks for rib check and grace removal. Will need to call to set up appointment on Friday 09/14. Ideally set up appointment for 09/22 [place] Chris MD [address] [facility] [address] [address] Follow up in 1 month(s) Follow up in 4-6 weeks after surgery. Will need to call office to set up appointment [facility] Address: [address] [id number] Servicing Counties: [phone] Patient instructions, including activity, were given to the patient/family at discharge. Please seethe After Visit Summary in the electronic medical record for details. Time spent on discharge: < 30 minutes Completed by: Susannah Mercer CNP on 09/14/19, 9:14 AM Associated attestation - Amaya Pinedo MD - 09/14/2019 5:29 PM EST I saw this patient, reviewed all relevant labs, x-rays, and vitals, and agree with the plan as outlined by the resident/DISTRIBUTION SALES REPRESENTATIVE. documented in this encounter Discharge Instructions * Discharge Instr - Care Coordination* Saloni Frausto MSW LSW - 09/10/2019 11:26 AM EST [facility] will be contacting you after discharge from the hospitalto check on you. [facility] [address] [place] [address] [facility] [address] [place] [address] * Additional Instructions* Pam Salmeron RN - 09/14/2019 Broken Rib: Care Instructions Your Care Instructions A broken rib is a crack or break in one of the bones of the rib cage. Breathing can be very painfulbecause the muscles used for breathing pull on the rib. In most cases, a broken rib will heal on its own. You can take pain medicine while the rib mends. Pain relief allows you to take deep breaths. In the past, doctors recommended taping or wrapping broken ribs. This is no longer done because taping makes it hard for you to take deep breaths. Taking deep breaths may help prevent pneumonia or a partial collapse of a lung. Your rib will heal in about 6 weeks. You heal best when you take good care of yourself. Eat a variety of healthy foods, and don't smoke. Follow-up care is a hernandez part of your treatment and safety. Be sure to make and go to all appointments, and call your doctor if you are having problems. It's also a good idea to know your test resultsand keep a list of the medicines you take. How can you care for yourself at home? Be safe with medicines. Read and follow all instructions on the label. ? If the doctor gave you a prescription medicine for pain, take it as prescribed. ? If you are not taking a prescription pain medicine, ask your doctor if you can take an [id number] medicine. Even if it hurts, try to cough or take the deepest breath you can at least once every hour. This will get air deeply into your lungs. This may reduce your chance of getting pneumonia or a partial collapse of a lung. Hold a pillow against your chest to make this less painful. Put ice or a cold pack on the area for 10 to 20 minutes at a time. Put a thin cloth between the iceand your skin. When should you call for help? Call 911 anytime you think you may need emergency care. For example, call if: You have severe trouble breathing. Call your doctor now or seek immediate medical care if: You have some trouble breathing. You have a fever. You have a new or worse cough. Watch closely for changes in your health, and be sure to contact your doctor if: You have pain even after taking your medicine. You do not get better as expected. Where can you learn more? Log into your personal health record on [email or web address] and enter M135 in the Education box to learn more about Broken Rib: Care Instructions. Current as of: April 01, 2019 Content Version: [id number] [employer]. Care instructions adapted under license by your healthcare professional. If you have questions about a medical condition or this instruction, always ask your healthcare professional. [employer] disclaims any warranty or liability for your use of this information. Chest Tube Removal: What to Expect at Home Your Recovery A chest tube is placed through the chest wall between two ribs. You may have had a chest tube put in to help your collapsed lung expand. Or the tube may have helped drain fluid from a chest infectionor surgery. The tube was removed before you came home. You may have some pain in your chest from the cut (incision) where the tube was put in. For most people, the pain goes away after about 2 weeks. You will have a bandage taped over the wound. Your doctor will remove the bandage and examine the wound in about 2 days. It will take about 3 to 4 weeks for your incision to heal completely. It may leave a small scar that will fade with time. This care sheet gives you a general idea about how long it will take for you to recover. But each person recovers at a different pace. Follow the steps below to feel better as quickly as possible. How can you care for yourself at home? Activity Rest when you feel tired. Getting enough sleep will help you recover. Try to walk each day. Start by walking a little more than you did the day before. Bit by bit, increase the amount you walk. Walking boosts blood flow and helps prevent pneumonia and constipation. Avoid strenuous activities, such as bicycle riding, jogging, weight lifting, or aerobic exercise, until your doctor says it is okay. How soon you can return to work or your normal routine depends on what health problems you have. Talk with your doctor about how long it will take you to recover. You may shower after your bandage is removed. Pat the cut (incision) dry. Do not take a bath for 2 weeks after your chest tube is out, or until your doctor tells you it is okay. Practice deep breathing exercises as directed by your doctor. Coughing exercises also can help drain fluid out of your chest. Diet You can eat your normal diet. If your stomach is upset, try bland, low-fat foods like plain rice, broiled chicken, toast, and yogurt. Drink plenty of fluids (unless your doctor tells you not to). Medicines Your doctor will tell you if and when you can restart your medicines. He or she will also give you instructions about taking any new medicines. If you take aspirin or some other blood thinner, be sure to talk to your doctor. He or she will tell you if and when to start taking this medicine again. Make sure that you understand exactly what your doctor wants you to do. Be safe with medicines. Take pain medicines exactly as directed. ? If the doctor gave you a prescription medicine for pain, take it as prescribed. ? If you are not taking a prescription pain medicine, ask your doctor if you can take an ivav-dni-jtxfvgj medicine. Take your antibiotics as directed. Do not stop taking them just because you feel better. You need to take the full course of antibiotics. Incision care Keep the incision dry as it heals. You will have a bandage over it to help the incision heal and protect it. Your doctor will tell you how to take care of this. Other instructions Do not smoke. Smoking makes lung problems worse. If you need help quitting, talk to your doctor about stop-smoking programs and medicines. These can increase your chances of quitting for good. Follow-up care is a hernandez part of your treatment and safety. Be sure to make and go to all appointments, and call your doctor if you are having problems. It's also a good idea to know your test resultsand keep a list of the medicines you take. When should you call for help? Call 911 anytime you think you may need emergency care. For example, call if: You passed out (lost consciousness). You have severe trouble breathing. You have sudden chest pain and shortness of breath, or you cough up blood. Call your doctor now or seek immediate medical care if: You have trouble breathing. Your shortness of breath is getting worse. Bright red blood soaks through the bandage over your incision. You have a fever. Watch closely for any changes in your health, and be sure to contact your doctor if: You do not get better as expected. Where can you learn more? Log into your personal health record on [email or web address]://[email or web address] and enter U748 in the Education box to learn more about Chest Tube Removal: What to Expect at Home. Current as of: March 15, 2019 Content Version: 12.3 4462-9735 [employer]. Care instructions adapted under license by your healthcare professional. If you have questions about a medical condition or this instruction, always ask your healthcare professional. [employer] disclaims any warranty or liability for your use of this information. Learning About Using an Incentive Spirometer What is an incentive spirometer? An incentive spirometer is a handheld device that exercises your lungs and measures how much air you can breathe in. It tells you and your doctor how well your lungs are working. The spirometer can help you practice taking deep breaths. Deep breaths can help open your airways and prevent fluid or mucus from building up in your lungs, and make it easier for you to breathe. Using the device can help prevent serious lung infections like pneumonia, improve your breathing after you've had pneumonia or surgery, and keep your airways open and lungs active if you can't get out of bed. How do you use an incentive spirometer? When you use an incentive spirometer, you breathe in air through a tube that is connected to a large air column containing a piston or ball. As you breathe in, the piston or ball inside the column moves up. The height of the piston or ball shows how much air you breathed in. You may feel lightheaded when you breathe in deeply for this exercise. If you feel dizzy or feel like you're going to pass out, stop the exercise and rest. Each time you do this exercise, keep track of your progress by writing down how high the piston or ball moves up the column. 1. Move the slider on the outside of the large column to the level that you want to reach or that your doctor recommended. 2. Sit or stand up straight, and hold the spirometer in front of you. Be sure to keep it level. 3. To start, breathe out normally. Then close your lips tightly around the mouthpiece. Make sure that you don't block the mouthpiece with your tongue. 4. Take a slow, deep breath. Breathe in as deeply as you can. As you breathe in, the piston or ballinside the large column will move up. Try to move the piston or ball as high up as you can or to the level your doctor recommended. When you can't breathe in anymore, hold your breath for 2 to 5 seconds. 5. Relax, take the mouthpiece out of your mouth, and breathe out normally. 6. Repeat steps 1 through 5 as many times as your doctor tells you to. 7. After you've taken the recommended number of breaths, try to cough a few times. This will help loosen any mucus that has built up in your lungs. It will make it easier for you to breathe. If you just had surgery on your belly or chest, hold a pillow over your cut (incision) when you cough. Follow-up care is a hernandez part of your treatment and safety. Be sure to make and go to all appointments, and call your doctor if you are having problems. It's also a good idea to know your test resultsand keep a list of the medicines you take. Where can you learn more? Log into your personal health record on https://[employer] and enter B979 in the Education box to learn more about Learning About Using an Incentive Spirometer. Current as of: March 15, 2019 Content Version: 12.3 0365-0088 [employer]. Care instructions adapted under license by your healthcare professional. If you have questions about a medical condition or this instruction, always ask your healthcare professional. [employer] disclaims any warranty or liability for your use of this information. Cuts Closed With Grace: Care Instructions Your Care Instructions A cut can happen anywhere on your body. The doctor used grace to close the cut. Bozman easily and quickly close a cut, which helps the cut heal. Sometimes a cut can injure tendons, blood vessels, or nerves. If the cut went deep and through the skin, the doctor may have put in a layer of stitches below the grace. The deeper layer of stitchesbrings the deep part of the cut together. These stitches will dissolve and don't need to be removed. The grace in the upper layer are what you see on the cut. You may have a bandage. You will need to have the grace removed, usually in 7 to 14 days. The doctor has checked you carefully, but problems can develop later. If you notice any problems ornew symptoms, get medical treatment right away. Follow-up care is a hernandez part of your treatment and safety. Be sure to make and go to all appointments, and call your doctor if you are having problems. It's also a good idea to know your test resultsand keep a list of the medicines you take. How can you care for yourself at home? Keep the cut dry for the first 24 to 48 hours. After this, you can shower if your doctor okays it. Pat the cut dry. Don't soak the cut, such as in a bathtub. Your doctor will tell you when it's safe to get the cut wet. If your doctor told you how to care for your cut, follow your doctor's instructions. If you did notget instructions, follow this general advice: ? After the first 24 to 48 hours, wash around the cut with clean water 2 times a day. Don't use hydrogen peroxide or alcohol, which can slow healing. ? You may cover the cut with a thin layer of petroleum jelly, such as Vaseline, and a nonstick bandage. ? Apply more petroleum jelly and replace the bandage as needed. Avoid any activity that could cause your cut to reopen. Do not remove the grace on your own. Your doctor will tell you when to come back to have the grace removed. Take pain medicines exactly as directed. ? If the doctor gave you a prescription medicine for pain, take it as prescribed. ? If you are not taking a prescription pain medicine, ask your doctor if you can take an ixly-gmk-rhpfvig medicine. When should you call for help? Call your doctor now or seek immediate medical care if: You have new pain, or your pain gets worse. The skin near the cut is cold or pale or changes color. You have tingling, weakness, or numbness near the cut. The cut starts to bleed, and blood soaks through the bandage. Oozing small amounts of blood is normal. You have trouble moving the area near the cut. You have symptoms of infection, such as: ? Increased pain, swelling, warmth, or redness around the cut. ? Red streaks leading from the cut. ? Pus draining from the cut. ? A fever. Watch closely for changes in your health, and be sure to contact your doctor if: You do not get better as expected. Where can you learn more? Log into your personal health record on [email or web address]://[email or web address] and enter E525 in the Education box to learn more about Cuts Closed With Bozman: Care Instructions. Current as of: April 01, 2019 Content Version: 12.3 9861-1907 [employer]. Care instructions adapted under license by your healthcare professional. If you have questions about a medical condition or this instruction, always ask your healthcare professional. [employer] disclaims any warranty or liability for your use of this information. Preventing Falls: Care Instructions Your Care Instructions Getting around your home safely can be a challenge if you have injuries or health problems that make it easy for you to fall. Loose rugs and furniture in walkways are among the dangers for many olderpeople who have problems walking or who have poor eyesight. People who have conditions such as arthritis, osteoporosis, or dementia also have to be careful not to fall. You can make your home safer with a few simple measures. Follow-up care is a hernandez part of your treatment and safety. Be sure to make and go to all appointments, and call your doctor if you are having problems. It's also a good idea to know your test resultsand keep a list of the medicines you take. How can you care for yourself at home? Taking care of yourself You may get dizzy if you do not drink enough water. To prevent dehydration, drink plenty of fluids,enough so that your urine is light yellow or clear like water. Choose water and other caffeine-freeclear liquids. If you have kidney, heart, or liver disease and have to limit fluids, talk with yourdoctor before you increase the amount of fluids you drink. Exercise regularly to improve your strength, muscle tone, and balance. Walk if you can. Swimming may be a good choice if you cannot walk easily. Have your vision and hearing checked each year or any time you notice a change. If you have troubleseeing and hearing, you might not be able to avoid objects and could lose your balance. Know the side effects of the medicines you take. Ask your doctor or pharmacist whether the medicines you take can affect your balance. Sleeping pills or sedatives can affect your balance. Limit the amount of alcohol you drink. Alcohol can impair your balance and other senses. Ask your doctor whether calluses or corns on your feet need to be removed. If you wear loose-fitting shoes because of calluses or corns, you can lose your balance and fall. Talk to your doctor if you have numbness in your feet. Preventing falls at home Remove raised doorway thresholds, throw rugs, and clutter. Repair loose carpet or raised areas in the floor. Move furniture and electrical cords to keep them out of walking paths. Use nonskid floor wax, and wipe up spills right away, especially on ceramic tile floors. If you use a walker or cane, put rubber tips on it. If you use crutches, clean the bottoms of them regularly with an abrasive pad, such as steel wool. Keep your house well lit, especially stairways, porches, and outside walkways. Use night-lights in areas such as hallways and bathrooms. Add extra light switches or use remote switches (such as switches that go on or off when you clap your hands) to make it easier to turn lights on if you have to get up during the night. Install sturdy handrails on stairways. Move items in your cabinets so that the things you use a lot are on the lower shelves (about waist level). Keep a cordless phone and a flashlight with new batteries by your bed. If possible, put a phone in each of the main rooms of your house, or carry a cell phone in case you fall and cannot reach a phone. Or, you can wear a device around your neck or wrist. You push a button that sends a signal for help. Wear low-heeled shoes that fit well and give your feet good support. Use footwear with nonskid soles. Check the heels and soles of your shoes for wear. Repair or replace worn heels or soles. Do not wear socks without shoes on wood floors. Walk on the grass when the sidewalks are slippery. If you live in an area that gets snow and ice inthe winter, sprinkle salt on slippery steps and sidewalks. Preventing falls in the bath Install grab bars and nonskid mats inside and outside your shower or tub and near the toilet and sinks. Use shower chairs and bath benches. Use a hand-held shower head that will allow you to sit while showering. Get into a tub or shower by putting the weaker leg in first. Get out of a tub or shower with your strong side first. Repair loose toilet seats and consider installing a raised toilet seat to make getting on and off the toilet easier. Keep your bathroom door unlocked while you are in the shower. Where can you learn more? Log into your personal health record on https://[employer] and enter G117 in the Education box to learn more about Preventing Falls: Care Instructions. Current as of: May 12, 2019 Content Version: 12.3 [employer]. Care instructions adapted under license by your healthcare professional. If you have questions about a medical condition or this instruction, always ask your healthcare professional. [employer] disclaims any warranty or liability for your use of this information. Body Mass Index: Care Instructions Your Care Instructions Body mass index (BMI) can help you see if your weight is raising your risk for health problems. It uses a formula to compare how much you weigh with how tall you are. A BMI lower than 18.5 is considered underweight. A BMI between 18.5 and 24.9 is considered healthy. A BMI between 25 and 29.9 is considered overweight. A BMI of 30 or higher is considered obese. If your BMI is in the normal range, it means that you have a lower risk for weight-related health problems. If your BMI is in the overweight or obese range, you may be at increased risk for weight-related health problems, such as high blood pressure, heart disease, stroke, arthritis or joint pain, and diabetes. If your BMI is in the underweight range, you may be at increased risk for health problems such as fatigue, lower protection (immunity) against illness, muscle loss, bone loss, hair loss,and hormone problems. BMI is just one measure of your risk for weight-related health problems. You may be at higher risk for health problems if you are not active, you eat an unhealthy diet, or you drink too much alcohol or use tobacco products. Follow-up care is a hernandez part of your treatment and safety. Be sure to make and go to all appointments, and call your doctor if you are having problems. It's also a good idea to know your test resultsand keep a list of the medicines you take. How can you care for yourself at home? Practice healthy eating habits. This includes eating plenty of fruits, vegetables, whole grains, lean protein, and low-fat dairy. If your doctor recommends it, get more exercise. Walking is a good choice. Bit by bit, increase theamount you walk every day. Try for at least 30 minutes on most days of the week. Do not smoke. Smoking can increase your risk for health problems. If you need help quitting, talk to your doctor about stop-smoking programs and medicines. These can increase your chances of quittingfor good. Limit alcohol to 2 drinks a day for men and 1 drink a day for women. Too much alcohol can cause health problems. If you have a BMI higher than 25 Your doctor may do other tests to check your risk for weight-related health problems. This may include measuring the distance around your waist. A waist measurement of more than 40 inches in men or 35 inches in women can increase the risk of weight-related health problems. Talk with your doctor about steps you can take to stay healthy or improve your health. You may needto make lifestyle changes to lose weight and stay healthy, such as changing your diet and getting regular exercise. If you have a BMI lower than 18.5 Your doctor may do other tests to check your risk for health problems. Talk with your doctor about steps you can take to stay healthy or improve your health. You may needto make lifestyle changes to gain or maintain weight and stay healthy, such as getting more healthyfoods in your diet and doing exercises to build muscle. Where can you learn more? Log into your personal health record on https://[employer] and enter S176 in the Education box to learn more about Body Mass Index: Care Instructions. Current as of: January 01, 2019 Content Version: 12.3 3883-2022 [employer]. Care instructions adapted under license by your healthcare professional. If you have questions about a medical condition or this instruction, always ask your healthcare professional. [employer] disclaims any warranty or liability for your use of this information. Starting a Weight Loss Plan: Care Instructions Your Care Instructions If you are thinking about losing weight, it can be hard to know where to start. Your doctor can help you set up a weight loss plan that best meets your needs. You may want to take a class on nutrition or exercise, or join a weight loss support group. If you have questions about how to make changes to your eating or exercise habits, ask your doctor about seeing a registered dietitian or an certified health education specialist. It can be a big challenge to lose weight. But you do not have to make huge changes at once. Make small changes, and stick with them. When those changes become habit, add a few more changes. If you do not think you are ready to make changes right now, try to pick a date in the future. Makean appointment to see your doctor to discuss whether the time is right for you to start a plan. Follow-up care is a hernandez part of your treatment and safety. Be sure to make and go to all appointments, and call your doctor if you are having problems. It's also a good idea to know your test resultsand keep a list of the medicines you take. How can you care for yourself at home? Set realistic goals. Many people expect to lose much more weight than is likely. A weight loss of 5% to 10% of your body weight may be enough to improve your health. Get family and friends involved to provide support. Talk to them about why you are trying to lose weight, and ask them to help. They can help by participating in exercise and having meals with you, even if they may be eating something different. Find what works best for you. If you do not have time or do not like to cook, a program that offersmeal replacement bars or shakes may be better for you. Or if you like to prepare meals, finding a plan that includes daily menus and recipes may be best. Ask your doctor about other health professionals who can help you achieve your weight loss goals. ? A dietitian can help you make healthy changes in your diet. ? An certified health education specialist or personal development coach can help you develop a safe and effective exercise program. ? A counselor or psychiatrist can help you cope with issues such as depression, anxiety, or family problems that can make it hard to focus on weight loss. Consider joining a support group for people who are trying to lose weight. Your doctor can suggest groups in your area. Where can you learn more? Log into your personal health record on https://[employer] and enter U357 in the Education box to learn more about Starting a Weight Loss Plan: Care Instructions. Current as of: January 01, 2019 Content Version: 12.3 6023-7436 [employer]. Care instructions adapted under license by your healthcare professional. If you have questions about a medical condition or this instruction, always ask your healthcare professional. [employer] disclaims any warranty or liability for your use of this information. MANAGING YOUR PAIN AT HOME, HOME CARE INSTRUCTION Good pain control is very important. The pain medicines that are prescribed for you will help you be more comfortable while your body heals. It may take days, weeks or even months for your pain to goaway completely. It should become better over time. For Good Pain Control -Take your pain medication as instructed -Take pain medications before your pain becomes severe so you can have better pain relief -For 2 or 3 days, it may help to take pain medication as often as ordered to keep your pain under better control. Then begin to take less medications each day until you no longer need them. Taking Pain Medication Safely -Do not drive, operate heavy machinery, ride motorcycles or [employer] s, drink alcohol, or take other medication that make you tired or sleepy while you are taking narcotic pain medications. -Do not do any dangerous activities while taking pain medications. They may decrease your ability to make safe decisions. Potential Side Effects of Pain Medications -Do not take pain medications on an empty stomach. This may lead to nausea and vomiting. -Pain medicines often cause constipation. Each day as directed: -Take an hhac-ous-sihlkpf product that has a stool softener & laxative in it such as Senokot S,colace. -Drink 6 to 8 glasses of water -Eat foods that are high in fiber such as fruits and vegetables. If you become constipated despite these measures, you may take a mild jdut-ovs-vxmixnl laxative, such as Milk of Magnesia or use a Dulcolax suppository. TRAUMA FOLLOW-UP AND HOME CARE INSTRUCTIONS ACTIVITY AND SAFE PAIN MEDICATION USE -Do not drive while taking pain medicine. -Do not take hnzu-gex-qzfdtsq pain medicine of any type while taking prescription pain medication. -Activity as tolerated unless instructed otherwise. WOUND CARE -Keep your wounds dry and clean. Wash all wounds with soap and water and pat it dry. -You can shower but do not take a bath, swim or get in a hot tub until all your wounds are completely healed. When showering, cover your incision with plastic wrap. -If stitches/grace are present, they will be removed at your follow up appointment. Some sutures are dissolvable and will disappear on their own. -If small paper-like strips (called steri-strips) are on your incision, do not remove them. They will either fall off or will be removed by your surgeon at your follow-up visit. -If you had a chest tube, leave the chest tube dressing in place and do not take a shower for 48 hours. Then change the dressing each day. CALL YOUR DOCTOR IF YOU NOTICE: -Signs of infection: redness, swelling, odor or drainage from wounds, fever above 101 F. -Sudden, severe pain or pain not relieved by medication. -Calf pain, redness or swelling. -Loss or appetite, nausea or vomiting. -You have any other questions or concerns. Please see your primary care provider for a follow-up exam and update on your recent admission. If you do not have a primary care physician, make an appointment with the trauma clinic. Hours are: Saturday-Saturday 8am-4pm . For any other questions, problems, or NON-NARCOTIC refills such as Flexeril, Motrin, etc., please call . Leave your name, phone number, and a brief message. You will be contacted between the hours of 8am-4pm 7 days a week. All NARCOTIC refills will require a clinic appointment. If it is an Emergency, call [phone] or go to the nearest Emergency room. TRAUMA CLINIC FOLLOW-UP To make or cancel an appointment, call . The Trauma Clinic is located at the [facility], [address]. Park in the Green parking garage. INCIDENTAL FINDINGS The purpose of this information is to document that you have been informed by the hospital and yourphysician/nurse practitioner about an abnormal finding while you were a patient on the Trauma Service at [facility]. You acknowledge that the trauma physician or one of his associates has informed you about an abnormal finding of: 1. 7 mm subpleural nodule in the right middle lobe, adjacent to the major fissure. 2. 5 mm subpleural nodule in the right middle lobe. 3. Fatty infiltration of liver. 4. 1.8 cm L renal cyst You understand that your trauma physician is not making a diagnosis unless a judgment is made at the time of your hospitalization that further investigation is warranted. I have also been informed of the potential seriousness of my finding listed above. You are aware that it is your responsibility to make an appointment with your primary care physician following discharge from [facility]. A referral to a specialty physician may be deemed necessary. documented in this encounter* Instructions* Cari Vinson RN - 07/26/2020 Upper GI Endoscopy: What to expect at home ACTIVITY: DO NOT DRIVE, OPERATE MACHINERY, OR DRINK ANY ALCOHOL TODAY. Avoid making critical decisions, signing legal documents, or performing any activity that requires alertness for the rest of the day. You may be bloated or have gas pains since air was introduced into the stomach for the procedure. You may need to pass the gas throughout the day. You may experience a mild sore throat. You may use an uydd-xcb-bfxgmpb chloraseptic spray, gargle with warm salt water, or use throat lozenges. Notify your physician if this feeling lasts more than 48 hours. Rest the remainder of the day. You may resume normal activity tomorrow. You may return to work tomorrow. DIET: You may resume a normal diet unless notified or recommended by your physician. You may be eager to eat a large meal after fasting, but it is a good idea to start with light mealsand ease into solid foods the first day. (*) If your stomach is upset, try clear liquids and bland, low-fat foods like plain toast or rice. Drink plenty of fluids for the first 24 hours (unless your physician states otherwise). MEDICATION: Resume your normal home medications unless notified or recommended by your physician. If you take blood thinners (such as Coumadin, Eliquis, Plavix, Aspirin, etc.) or anti-inflammatory medications (Advil, Motrin, Aleve, etc.), ask your physician when you may resume these medications. FOLLOW-UP APPOINTMENT: Follow up with or call your physician as needed. When to call for help: Call your doctor IMMEDIATELY or seek medical care if you experience: ? Severe pain or vomiting ? Coughing up more than a teaspoon of blood ? You pass a large amount of tar-like stools ? Your belly is swollen and firm with severe pain ? A fever greater than 101 degrees ? Redness or swelling of arm from the IV site for more than 48 hours ? Sudden onset of chest pain or shortness of breath ? If you become extremely dizzy or pass out (lose consciousness) IF YOU ARE UNABLE TO REACH YOUR PHYSICIAN GO TO NEAREST EMERGENCY DEPARTMENT documented in this encounter History of Present Illness * Maliha May RN - 09/14/2019 12:01 PM EST COMPLEX DISCHARGE Date: 09/14/2019 Time: 12:01 PM Patient Name: Solomon Zamora Date of : 1975 Sex: Male Patient Information Primary Caregiver: Self Patient will need skilled therapy up to 2-3 days per week after dc. LU[facility] LUISA Baca ph; [phone] who stated that no home health agency is in network with the patient's insurance. LUISA requested that [employer] send this worker by fax a list of outpatient therapy agencies with in a 50 mile radius of the patient's home. Patient is in agreement for outpatient therapy. Await list of outpatient clinics to provide to the patient. CM placed ambulatory outpatient therapy order. Patient stated he can ride home in his father's car & would like to dc today. Resources Financial Resources: Other (Comment)([facility]) Discharge Plan Shared UM/CC and RN Source of Information: Patient, Chart Contact (Frances Garcia, daughter) Living Arrangements: Alone(family will stay to assist) Support Systems: Parent, Children, Family members Functional Status: Minimum assistance Type of Residence: Private residence Prior to Admission Home Care Services: No Current Home Equipment: Wheeled walker, Wheel chair, Cane, Crutches, Tub/Shower chair Insurance Coverage for Prescriptions: Yes Anticipated Discharge Plan Anticipated HME: None Anticipated Home Care Needs: Outpatient rehab Anticipated Facility Type: Outpatient rehabilitation Potential for Readmission Potential for Readmission: No Discharge Readiness Expected Discharge Date: 09/13/19 [facility] Disposition D/C Disposition: Home Related to Current Admission?: Yes Agency/Destination: [facility] Home Care Needs : Outpatient rehab HME: None Same As Recommended : yes Transportation Type: Auto Options Reviewed: Explained services/benefits, List provided Reason for Choice: Patient/Family preference * Blake Walter MD - 09/14/2019 11:49 AM EST Blake Walter MD [facility] Hospitalists DAILY PROGRESS NOTE Patient Name: Solomon Zamora PCP: Antolin Barron MD Perpetual Assessment: Solomon Zamora is a 44 y.o. male who presented from outside hospital on 09/07/2019 with rib fractures s/p fall. [facility] is consulted for medical management Assessment and Plan Fall/trauma/right rib fractures - Mechanical fall from a height of 4 to 5 feet - Outside CT scan with mild displaced right lateral 3-6 ribs and nondisplaced 7- 8 rib fractures, tiny right pneumothorax - s/p thoracoplasty with rib fixations of ribs 3, 4, 5, 7, and 8, intercostal nerve blocks of 3, 4,5, 6, 7, and 8, complex wound closure, thoracotomy with evacuation of hemothorax and chest tube placement on 09/08 per TS, CT removed 09/13 - post-op management including DVT prophylaxis, pain meds, dispo per TS team Hypertension - bp intermittently elevated secondary to pain but stable overall - Continue home hydrochlorothiazide, PRNs available Morbid obesity - BMI 57.38 - encourage diet/exercise and lifestyle modifications Hypokalemia - K 3.3 - replaced Code Status: Full DVT Prophylaxis Deferred to Primary Service Disposition and Comments Per primary, will continue to follow. Medically okay for discharge CC / Reason for follow up: Med management SUBJECTIVE: Pt seen and examined this am. Lying in bed complaint of pain to the right shoulder and the right ribs. Denies fever, chest pain, shortness breath, abdominal pain, nausea. ROS: < >> The following system(s) were reviewed. Pertinent positive and negative findings are noted in the HPI. [x] Const [] Eyes [] ENT [x] Resp [x] CV [x] GI [x] [x] Neuro [x] Musc [] Skin [] Psych [] Endo [] Allergy [] Heme/Lymph PHYSICAL EXAMINATION: << >>>>> Temp: [97.5 F (36.4 C)-98.2 F (36.8 C)] 97.5 F (36.4 C) Heart Rate: [65-86] 85 Resp: [14-20] 18 BP: (131-157)/(79-91) 140/91 GENERAL: NAD, morbidly obese EYES: Conjunctiva and sclera clear. ENT: Hearing intact. CV: Reg, no murmur. No JVD. No edema. RESP: Decreased breath sounds on the right side. Clear, no rales, rhonchi, wheezes. No increase in respiratory effort. GI: Non-distended, +BS, soft, non-tender. SKIN: Warm and dry. No rashes. Right upper chest dressing NEURO: Alert, Ox3. Grossly normal motor and sensory exam. No focal deficits. PSYCH: Mood and affect are appropriate. Cooperative. I/O s last 3 shifts: I/O last 3 completed shifts: In: 800 [P.O.:800] Out: - Reviewed 09/14/19 11:49 AM: [] Laboratory [x] Transcriptions [] Radiology [] Microbiology [] Cardiology [] Outside Records [x] Medications [] Family Time Spent/CCM Time: * Renny Hyamn, HAT MENDER - 09/14/2019 11:48 AM EST Physical Therapy PHYSICAL THERAPY TREATMENT NOTE Skilled Therapy Needs After Discharge Anticipate Resolution of Current Assessment Limitations Including: Pain Are Skilled Therapy Services Needed After Discharge: Yes Intensity of Skilled Therapy: 2-3 days per week Anticipated Duration of Skilled Therapy: Duration 7 - 10 days DME Recommendation: None Rehab Potential: Good, For goals Outcomes Measures Prior Function - Basic Mobility Raw Score: 24 Points Prior Function - Basic Mobility % Impaired: 0% functionally impaired AM-PAC - Basic Mobility Raw Score: 18 Points AM-PAC - Basic Mobility % Impaired: 40.47% functionally impaired Activity Tolerance Therapy Precautions Orthotic Devices: No Weight Bearing Status: WFL General Rehab Precautions: Back, Fall risk Balance Sitting Balance - Static: (Supervision) Sitting Balance - Dynamic: (Supervision) Standing Balance - Static: (SBA without UE support) Standing Balance - Dynamic: (SBA without UE support) Balance Training (Treatment only): Standing weight shifting all planes Skilled Intervention: Patient cued for proper posture during transfers, ambulation and stair navigation. Bed Mobility Rolling: Stand by assistance Supine to Sit: Stand by assistance Sit to Supine: Stand by assistance Skilled Intervention: Step by step sequencing of log roll technique instructed to faciltate increased efficiency and precaution compliance. VCs provided for BLE management into bed and UE reaching across midline duirng roll. Transfers Sit to Stand: Stand by assistance Bed to Chair: Stand by assistance Lateral Transfers: Stand by assistance Candy Maker: 1 person, Gait belt Skilled Intervention: Pt instructed for lateral weight shift and scooting of opposite hip as neededto reach edge of surface sitting, proper hand placement, anterior weight shift and UE reaching backfor support during controlled eccentric motion. Car Transfers: Stand by assist Skilled Intervention: VC/demo/practice provided to facilitate increased efficiency and precaution compliance during simulated car transfer. Gait/Locomotion Gait Assistance: Stand by assistance Assistive Device: None Distance: 300 Feet Pattern: R decreased step length, L decreased step length, Wide base of support, Decreased trunk rotation(Increased lateral sway) Curbs/Ramps: Contact guard(Curb step x3) Skilled Intervention: Patient encouraged for increased ambulation distance with cueing for increased bilat stride length and reduced lateral sway. Pt stated mild fatigue with extended distance of gait. Pt instructed for step to LE sequencing and minimal UE support during stair navigation. Exercise Ankle Pumps: x10 Straight Leg Raise: x5 Quad Sets: x10 Glute Sets: x10 Hip Abduction: x10 Standing Exercises: Bilat hip extension and abduction demonstrated. Skilled Intervention: Patient educated for BLE therapeutic exercised and was encouraged to perform 20 repetions, 3 times per day. Home Living Type of Home: House Home Layout: One level, Stairs to enter without rails(2 MARCIO) Bathroom Shower/Tub: Walk-in shower Bathroom Toilet: Standard Bathroom Equipment: Shower chair Home Equipment: Cane, Roof Bolter, Sock aid, Long-handled shoehorn Additional Comments: Reports ability to have his dad provide assist upon d/c if necessary Prior Level of Function Level of [place]: Independent with ADLs and functional transfers, Independent with homemaking with ambulation Lives With: Alone Receives Help From: (Pt's mom lives 1/4 a mile away) ADL Assistance: Independent Homemaking Assistance: Independent 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 This note stands as the current Discharge Summary upon patient discharge from the hospital or completion of Physical Therapy Plan of Care. * Liane Hammonds RN - 09/13/2019 2:14 PM EST COMPLEX DISCHARGE Date: 09/13/2019 Time: 2:14 PM Patient Name: Solomon Zamora Date of : 1975 Sex: Male Discharge Plan Shared UM/CC and RN Source of Information: Patient Living Arrangements: Alone Support Systems: Family members, Friends/neighbors Functional Status: Independent Type of Residence: Private residence Prior to Admission Home Care Services: No Current Home Equipment: Wheeled walker, Wheel chair, Cane, Crutches, Tub/Shower chair Insurance Coverage for Prescriptions: Yes Anticipated Discharge Plan Anticipated HME: None Anticipated Home Care Needs: Home health care Anticipated Facility Type: Home care Potential for Readmission Potential for Readmission: No Discharge Readiness Expected Discharge Date: 09/13/19 [facility] Disposition D/C Disposition: Home Health Care Services Related to Current Admission?: Yes Agency/Destination: [facility] Home Care Needs : Home health care HME: None Transportation Type: Auto Options Reviewed: List provided Reason for Choice: Patient/Family preference Discharge order placed by physician. Chart review per CM. DOCUMENTATION ANALYST Following patient's discharge. Per DOCUMENTATION ANALYST's notes, still awaiting response on patient's [facility] referral. Intake closed until 09/14/19. Attemptedto call Tracie, pt's insurance CM at #[phone]. Tracie not in office today. Telephone call made to [facility] and spoke to Leilani [facility] Liaison, at # [phone] and [facility] referral bundle faxed to #[phone]. Awaiting return call pending acceptance. Patient's bedside RN, Christa, aware and physician aware. Discharge pending today or tomorrow depending on acceptance of [facility] by [facility] today or [facility] when they open tomorrow. Addendum 1436: Received return telephone call from Leilani [facility] Liaison, with [facility]. Pt unable to be accepted due to not having staffing for his area of residence. Pt's bedside, Christa,notified. Discharge plans for 09/14/19 pending acceptance from [facility]. * Paulina Hess DO - 09/13/2019 10:51 AM EST Paulina Hess DO [facility] Hospitalists DAILY PROGRESS NOTE Patient Name: Solomon Zamora PCP: Antolin Barron MD Perpetual Assessment: Solomon Zamora is a 44 y.o. male who presented from outside hospital on 09/07/2019 with rib fractures s/p fall. [facility] is consulted for medical management. Assessment and Plan Fall/trauma/right rib fractures - Mechanical fall from a height of 4 to 5 feet - Outside CT scan with mild displaced right lateral 3-6 ribs and nondisplaced 7- 8 rib fractures, tiny right pneumothorax - s/p thoracoplasty with rib fixations of ribs 3, 4, 5, 7, and 8, intercostal nerve blocks of 3, 4,5, 6, 7, and 8, complex wound closure, thoracotomy with evacuation of hemothorax and chest tube placement on 09/08 per TS, CT removed 09/13 - post-op management including DVT prophylaxis, pain meds, dispo per TS team Hypertension - bp intermittently elevated secondary to pain but stable overall - Continue home hydrochlorothiazide, PRNs available Morbid obesity - BMI 57.38 - encourage diet/exercise Code Status: Full DVT Prophylaxis Deferred to Primary Service Disposition and Comments Per primary, will continue to follow. Medically okay for discharge CC / Reason for follow up: Med management SUBJECTIVE: Pt seen and examined this am. Sitting in chair. Chest tube removed. He feels well, no pain. No chest pain, sob, fever or chills ROS: < >> The following system(s) were reviewed. Pertinent positive and negative findings are noted in the HPI. [x] Const [] Eyes [] ENT [x] Resp [x] CV [x] GI [] [] Neuro [] Musc [] Skin [] Psych [] Endo [] Allergy [] Heme/Lymph PHYSICAL EXAMINATION: << >>>>> Temp: [97.8 F (36.6 C)-98.2 F (36.8 C)] 98 F (36.7 C) Heart Rate: [71-95] 76 Resp: [12-22] 15 BP: (128-160)/(74-85) 149/85 GENERAL: NAD, morbidly obese, sitting in chair EYES: Conjunctiva and sclera clear. ENT: Hearing intact. CV: Reg, no murmur. No edema. RESP: Clear, no rales, rhonchi, wheezes. No increase in respiratory effort. GI: Non-distended, +BS, soft, non-tender. SKIN: Warm and dry. No rashes. NEURO: Alert, Ox3. No focal deficits. PSYCH: Mood and affect are appropriate. Cooperative. I/O s last 3 shifts: I/O last 3 completed shifts: In: 510 [P.O.:510] Out: 130 [Chest Tube:130] Reviewed 09/13/19 10:51 AM: [x] Laboratory [x] Transcriptions [] Radiology [] Microbiology [] Cardiology [] Outside Records [x] Medications [] Family Time Spent/CCM Time: * Antolin Schmitz MD - 09/13/2019 7:35 AM EST Trauma Service Progress Note Demographic/Patient Information: Patient Name: Solomon Zamora Age/Sex: 44 y.o., male : 1975 Code Status: Full Code Impression/Plan: Discussed with Trauma Attending Dr. Noble on rounds - Agreed with plan of care Solomon Zamora is a 44 y.o. male who is s/p Fall . Trauma: Tertiary exam: completed & no additional injuries noted Consultants: Trev Pain & nausea control Diet: yes PT/OT: ordered DVT prophylaxis: Lovenox sq and SCDs [place]: Dispo plan - pending Morbid obesity (HCC) Assessment & Plan Noted on admission with BMI 57 -Encourage dietary changes and exercise when able -F/u with PCP at discharge Abnormal radiograph Assessment & Plan Trauma imaging showed incidental findings including - 7 mm subpleural nodule in the right middle lobe, adjacent to the major fissure. 5 mm subpleural nodule in the right middle lobe - Fatty infiltration of liver - 1.8 cm L renal cyst Will discuss with patient prior to discharge. Follow-up with PCP as an outpatient. Hypertension Assessment & Plan Per history - Resume home meds - Cardiac montoring Fall Assessment & Plan Mechanical fall (slipped on ice) from deer/tree stand (4-6 feet high) onto anterior abdomen. No head strike, no LOC, no AC/AP. - On exam, GCS 15. No focal neurological deficits. HDS. - AM labs (09/08) reviewed, unremarkable - H imaging: CT H, Cs, CAP, CXR with multiple R rib fractures, otherwise negative - [facility] CT C-spine negative for acute injury; C-spine cleared - [facility]: CXR - EKG NSR - Pain/nausea control - PT/OT when able - Dispo pending * Multiple closed fractures of ribs of right side Assessment & Plan OL CT CAP with mildly displaced R lateral 3rd-6th rib fractures and nondisplaced 7th-8th rib fractures. Tiny R pneumothorax and trace R pleural effusion noted - S/p rib fixation 09/[address] Chris - AM CXR () without PTX on my eval, however significant bilateral atelectasis - Chest tube removed 09/12, no post pull PTX - Nocturnal bipap to help with atelectasis, oxygenating well on nasal cannula - AM CXR - Cardiac monitoring - O2 PRN for O2 sat <92% - Aggressive pulmonary hygiene/IS/Acapella-encourage pt to use today given atelectasis as above - Multimodal pain control - PT/OT daily. OOB TID -Likely home with home health today Chief Complaint: L sided chest wall pain Interval History: Pain improving,worked well with PT OT yesterday Allergies: Reviewed Allergies Allergen Reactions Motrin [Ibuprofen] Anaphylaxis Medications: Scheduled Medications: acetaminophen 650 mg Oral Q4H enoxaparin (LOVENOX) injection 40 mg Subcutaneous BID gabapentin 300 mg Oral Q8H TREVIN hydroCHLOROthiazide 12.5 mg Oral Daily ipratropium-albuterol 3 mL Inhalation Once lidocaine 1 patch Transdermal Daily methocarbamol 750 mg Oral Q8H TREVIN polyethylene glycol 17 g Oral Daily senna-docusate 1 tablet Oral BID Scheduled Infusions: PRN Med's: acetaminophen OR acetaminophen OR acetaminophen, aluminum-magnesium hydroxide-simethicone, bisacodyl, hydrALAZINE, magnesium hydroxide, methocarbamol, nalOXone AND Notify physician AND naloxone, ondansetron OR ondansetron, oxyCODONE, traZODone Subjective: 10 systems were reviewed as below. All were negative other than, outlined below. Patient endorses still having pain, but does improve with medication, patient also getting relief with robaxin. Pt endorses he was able to get out of bed yesterday and his pain with coughing was not as bad compared to the previous day. He endorsed having a few BMs last night and abdominal gas pain as resolved. Deniesshortness of breath General: Negative Neuro: Negative HEENT: Negative CV: Negative Pulm: as above GI: as above Pelvis: Negative : Negative Spine: denies neck or back pain MSK: Negative Skin: Negative Objective: Recent vital signs reviewed Recent vital signs: Temp: [97.8 F (36.6 C)-98.2 F (36.8 C)] 98 F (36.7 C) Heart Rate: [71-95] 76 Resp: [12-28] 15 BP: (128-160)/(74-85) 149/85 General: No acute distress Neurological: GCS 15, no focal neurological deficits Head: Normocephalic, face is symmetrical & is nontender Eyes: PERRLA & EOM's intact, gross vision is intact ENT: Gross hearing intact, moist mucous membranes, trachea is midline Chest: Symmetrical chest rise, chest wall is tender to the R lateral chest wall, R CT in place without air leak, serosang output, incision well approximated with grace, pink and healing, moderate amount of serious drainage noted on incision drsg, no crepitus crepitus CV: S1 & S2 noted, no murmur/rub/gallop, palpable pulses, HDS Pulm: Lungs CTA & equal bilaterally, diminished throughout, no distress noted. Oxygenating wellon RA GI: Abd soft, non-distended, nontender, no peritoneal signs : Voids without difficulty Spine: No c-collar , C/T/L/S spine is nontender with palpation, no step-off's or deformities, no neuro deficits MSK: Extremities are non-tender, MOEx4 with equal & 5/5 strength, sensation intact, neurovascular intact Skin: Skin warm, dry & grossly intact, no obvious rashes or lesions Laboratory Studies: Recent laboratory studies reviewed CBC: Results from last 7 days Lab Units 09/10/19 041 WBC K/mcL 10.84 HGB g/dL 12.8* HCT % 38.5* PLT K/mcL 235 Results from last 7 days Lab Units 09/10/19 0411 09/09/19 0434 09/09/19 0412 HGB g/dL 12.8* -- 13.3* HEMOGLOBIN BG g/dL -- 12.9* -- Coags: Results from last 7 days Lab Units 09/07/19 1643 INR 1.1 Results from last 7 days Lab Units 09/07/19 1643 INR 1.1 Chem: Results from last 7 days Lab Units 09/10/19 0411 SODIUM mmol/L 135 POTASSIUM mmol/L 3.9 CHLORIDE mmol/L 95* BUN mg/dL 11 CREATININE mg/dL 0.43* CALCIUM mg/dL 8.8 GLUCOSE mg/dL 133* Results from last 7 days Lab Units 09/10/19 0411 09/09/19 0412 09/08/19 0457 CREATININE mg/dL 0.43* 0.43* 0.48* Cardiac Enzymes: No results found for: CKTOTAL, CKMB, HSCRP, TROPONINI LFT's: Invalid input(s): LABALBU Diagnostic Imaging: Recent diagnostic imaging/reports reviewed XR Chest 1 View Final Result Slight improvement in aeration in portions of the right lung with residual atelectatic change and probable small right pleural effusion. Right chest tube remains present. No definite pneumothorax. [facility] Workstation ID: [id number] XR Chest 1 View Final Result 1. Right-sided chest tube in place with no definite pneumothorax. Moderate, likely partially loculated right-sided pleural effusion is unchanged. 2. Background interstitial prominence and bilateral atelectatic changes, not significantly changed. [facility]/hff Workstation ID: [id number] XR Chest 1 View Final Result 1. No pneumothorax. 2. Persistent right lung volume loss with a band of atelectasis in the right lung base and elevation of the right hemidiaphragm. [facility]/sjk Workstation ID: [id number] XR Chest 1 View Final Result 1. There is a chest tube in the right hemithorax. No pneumothorax. 2. Atelectasis throughout the right lung is stable. 3. No pleural effusion appreciated. [facility]/cdr Workstation ID: [id number] XR Chest 1 View Final Result There may be a tiny right apical pneumothorax. [facility]/trw Workstation ID: [id number] XR Chest 1 View Final Result 1. Multiple right-sided rib fractures seen on the CT chest, abdomen and pelvis from [facility] on 09/07/2019 are not appreciable on this study. 2. Low lung volumes with bibasilar hypoventilation otherwise no acute process involving lungs. 3. Previously described small right pneumothorax is not appreciable on this study. [facility]/f Workstation ID: [id number] XR Comparison Import Final Result CT Comparison Import Final Result CT Comparison Import Final Result CT Comparison Import Final Result XR Chest 1 View Final Result 1. 4 mm right apical pneumothorax, likely stable compared to the prior CT but not visualized on theprevious chest radiograph. Recommend short-term continued radiographic follow-up. 2. Right rib fractures noted on previous CT are not well visualized radiographically. There is mildright chest wall subcutaneous emphysema. 3. Limited study but no other definite acute process. [facility]/lab Workstation ID: [id number] XR Chest 1 View (Results Pending) Antolin Schmitz MD 09/13/2019 7:36 AM * Irma Median, PT - 09/12/2019 3:50 PM EST Physical Therapy PHYSICAL THERAPY TREATMENT NOTE Skilled Therapy Needs After Discharge Anticipate Resolution of Current Assessment Limitations Including: Pain Are Skilled Therapy Services Needed After Discharge: Yes Intensity of Skilled Therapy: 2-3 days per week Anticipated Duration of Skilled Therapy: Duration 7 - 10 days DME Recommendation: None Rehab Potential: Good, For goals Outcomes Measures Prior Function - Basic Mobility Raw Score: 24 Points Prior Function - Basic Mobility % Impaired: 0% functionally impaired AM-PAC - Basic Mobility Raw Score: AM-PAC - Basic Mobility % Impaired: Therapy Precautions Orthotic Devices: No Weight Bearing Status: WFL General Rehab Precautions: Back, Fall risk Balance Bed Mobility Skilled Intervention: patient had recently been up to the bathroom and did not want to get up againright now. Transfers Gait/Locomotion Exercise Ankle Pumps: x10 Straight Leg Raise: x10 Heelslides: x10 Skilled Intervention: patient willing to participate in a few exercises as above. AROM. Home Living Type of Home: House Home Layout: One level, Stairs to enter without rails(2 MARCIO) Bathroom Shower/Tub: Walk-in shower Bathroom Toilet: Standard Bathroom Equipment: Shower chair Home Equipment: Cane, Roof Bolter, Sock aid, Long-handled shoehorn Additional Comments: Reports ability to have his dad provide assist upon d/c if necessary Prior Level of Function Level of [place]: Independent with ADLs and functional transfers, Independent with homemaking with ambulation Lives With: Alone Receives Help From: (Pt's mom lives 1/4 a mile away) ADL Assistance: Independent Homemaking Assistance: Independent 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 This note stands as the current Discharge Summary upon patient discharge from the hospital or completion of Physical Therapy Plan of Care. * Shakira Phillip, OT - 09/12/2019 2:38 PM EST Occupational Therapy OCCUPATIONAL THERAPY TREATMENT NOTE Skilled Therapy Needs After Discharge Anticipate Resolution of Current Assessment Limitations Including: Pain, Mechanical Barriers Are Skilled Therapy Services Needed After Discharge: Yes Intensity of Skilled Therapy: 2-3 days per week Anticipated Duration of Skilled Therapy: Duration 10 - 30 days DME Recommendation: (owns appropriate equipment per pt) Rehab Potential: Good Outcomes Measures Prior Function Daily Activity: Raw Score: 24 Prior Function Daily Activity % Impaired: 0% functionally impaired AM-PAC Daily Activity: Raw Score: 16 AM-PAC Daily Activity % Impaired: 53.32% functionally impaired Therapy Precautions Orthotic Devices: No Weight Bearing Status: WFL General Rehab Precautions: Fall risk, Back(R Rib fxs) Cognition Overall Cognitive Status: Within Functional Limits Arousal/Alertness: Appropriate responses to stimuli Orientation Level: Oriented X4 Executive functioning: WFL Safety Judgment: Good awareness of safety precautions Problem Solving: Able to problem solve independently Attention: Attends to quiet environment Hearing Status: [facility] Social Interaction: Cooperative Comments: Pt follows all commands without difficulty Skilled Intervention: Therapist reviewed how to correctly apply back precautions to bed mobility, ADLs & functional transfers with cueing for proper technique. ADL/IADL Grooming : Stand by assistance UE Dressing: Min(lisy/doff gown) Skilled Intervention: OT facilitated pts safe completion of functional OT navigtion to the sink to complete standing grooming & oral care tasks with cueing for safe technique. OT graded UE dressing for pts increased independence with cueing for technique Bed Mobility Supine to Sit: (Pt seated in bedside chair upon entrnace) Sit to Supine: Contact guard Skilled Intervention: Verbal cueing provided to reinforce proper log rolling technique for sit to supine from flat bed Functional Transfers Sit to Stand: Stand by assistance Bed to Chair Transfers: Stand by assist Toilet Transfers: Stand by assist Skilled Intervention: Therapist provided verbal cueing for proper body mechanics during functional toilet & chair transfer with cueing to reach back to control descent. Therapist provided cueing to correctly apply proper breathing technique to functional transfers with cues for correct application. Facilitated pts safe completion of functional OT navigation of household distance, pt with decreased activity tolerance Home Living Type of Home: House Home Layout: One level, Stairs to enter without rails(2 MARCIO) Bathroom Shower/Tub: Walk-in shower Bathroom Toilet: Standard Bathroom Equipment: Shower chair Home Equipment: Cane, Roof Bolter, Sock aid, Long-handled shoehorn Additional Comments: Reports ability to have his dad provide assist upon d/c if necessary Prior Level of Function Level of [place]: Independent with ADLs and functional transfers, Independent with homemaking with ambulation Lives With: Alone Receives Help From: (Pt's mom lives 1/4 a mile away) ADL Assistance: Independent Homemaking Assistance: Independent 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 This note stands as the current Discharge Summary upon patient discharge from the hospital or completion of Occupational Therapy Plan of Care. * Paulina Hess DO - 09/12/2019 10:38 AM EST Paulina Hess DO [facility] DAILY PROGRESS NOTE Patient Name: Solomon Zamora PCP: Antolin Barron MD Perpetual Assessment: Solomon Zamora is a 44 y.o. male who presented from outside hospital on 09/07/2019 with rib fractures s/p fall. [facility] is consulted for medical management. Assessment and Plan Fall/trauma/right rib fractures - Mechanical fall from a height of 4 to 5 feet - Outside CT scan with mild displaced right lateral 3-6 ribs and nondisplaced 7- 8 rib fractures, tiny right pneumothorax - s/p thoracoplasty with rib fixations of ribs 3, 4, 5, 7, and 8, intercostal nerve blocks of 3, 4,5, 6, 7, and 8, complex wound closure, thoracotomy with evacuation of hemothorax and chest tube placement on 09/08 per TS - post-op management including DVT prophylaxis, pain meds, dispo per TS team Hypertension - bp intermittently elevated secondary to pain but stable overall - Continue home hydrochlorothiazide, PRNs available Morbid obesity - BMI 57.38 - encourage diet/exercise Code Status: Full DVT Prophylaxis Deferred to Primary Service Disposition and Comments Per primary, will continue to follow CC / Reason for follow up: Med management SUBJECTIVE: Pt seen and examined this am. Lying in bed, pain controlled. Tolerating PO. Hopeful to get chest tube out soon ROS: < >> The following system(s) were reviewed. Pertinent positive and negative findings are noted in the HPI. [x] Const [] Eyes [] ENT [x] Resp [x] CV [x] GI [] [] Neuro [] Musc [] Skin [] Psych [] Endo [] Allergy [] Heme/Lymph PHYSICAL EXAMINATION: << >>>>> Temp: [97.6 F (36.4 C)-98.3 F (36.8 C)] 98 F (36.7 C) Heart Rate: [73-87] 73 Resp: [12-28] 28 BP: (140-156)/(80-93) 153/93 GENERAL: NAD, morbidly obese EYES: Conjunctiva and sclera clear. ENT: Hearing intact. CV: Reg, no murmur. No edema. Chest tube in place. RESP: Clear, no rales, rhonchi, wheezes. No increase in respiratory effort. GI: Non-distended, +BS, soft, non-tender. SKIN: Warm and dry. No rashes. NEURO: Alert, Ox3. No focal deficits. PSYCH: Mood and affect are appropriate. Cooperative. Normal judgment and insight. I/O s last 3 shifts: I/O last 3 completed shifts: In: - Out: 480 [Stool:200; Chest Tube:280] Reviewed 09/12/19 10:38 AM: [x] Laboratory [x] Transcriptions [x] Radiology [] Microbiology [] Cardiology [] Outside Records [x] Medications [] Family Time Spent/CCM Time: * Saloni Frausto REHAN SURFACE PLATE INSPECTOR - 09/12/2019 9:41 AM EST DISCHARGE PLAN PROGRESS NOTE Date: 09/12/2019 Time: 9:41 AM DOCUMENTATION ANALYST following. REHAN received voicemail from ryder Hodges's insurance ([phone]), stating she would perform research on finding in-network [facility] agencies for pt and requested if she could fax or email a list. DOCUMENTATION ANALYST left return voicemail requesting callback. Awaiting response. REHAN left message for [facility] ([phone]) intake requesting update on pt's referral. Awaiting response. Unsure of expected discharge date at this time. DOCUMENTATION ANALYST will continue to follow. Addendum 1:55 pm: DOCUMENTATION ANALYST spoke with on-call nurse with [facility] (Rima [phone]) she is not aware if they are in-network with pt's insurance that intake is not in until Saturday. DOCUMENTATION ANALYST will f/u. Patient Name: Solomon Zamora Date of : 1975 Sex: Male Discharge Readiness Expected Discharge Date: 09/13/19 [facility] Disposition D/C Disposition: Home Health Care Services Related to Current Admission?: Yes Agency/Destination: [facility] Home Care Needs : Home health care HME: None Transportation Type: Auto Options Reviewed: List provided Reason for Choice: Patient/Family preference Anticipated Discharge Plan Anticipated HME: None Anticipated Home Care Needs: Home health care Anticipated Facility Type: Home care * Antolin Schmitz MD - 09/12/2019 7:48 AM EST Trauma Service Progress Note Demographic/Patient Information: Patient Name: Solomon Zamora Age/Sex: 44 y.o., male : 1975 Code Status: Full Code Impression/Plan: Discussed with Trauma Attending Dr. Noble on rounds - Agreed with plan of care Solomon Zamora is a 44 y.o. male who is s/p Fall . Trauma: Tertiary exam: completed & no additional injuries noted Consultants: Med Pain & nausea control Diet: yes PT/OT: ordered DVT prophylaxis: Lovenox sq and SCDs [place]: Dispo plan - pending Morbid obesity (HCC) Assessment & Plan Noted on admission with BMI 57 -Encourage dietary changes and exercise when able -F/u with PCP at discharge Abnormal radiograph Assessment & Plan Trauma imaging showed incidental findings including - 7 mm subpleural nodule in the right middle lobe, adjacent to the major fissure. 5 mm subpleural nodule in the right middle lobe - Fatty infiltration of liver - 1.8 cm L renal cyst Will discuss with patient prior to discharge. Follow-up with PCP as an outpatient. Hypertension Assessment & Plan Per history - Resume home meds - Cardiac montoring Fall Assessment & Plan Mechanical fall (slipped on ice) from deer/tree stand (4-6 feet high) onto anterior abdomen. No head strike, no LOC, no AC/AP. - On exam, GCS 15. No focal neurological deficits. HDS. - AM labs (09/08) reviewed, unremarkable - [facility] imaging: CT H, Cs, CAP, CXR with multiple R rib fractures, otherwise negative - [facility] CT C-spine negative for acute injury; C-spine cleared - [facility]: CXR - EKG NSR - Pain/nausea control - PT/OT when able - Dispo pending * Multiple closed fractures of ribs of right side Assessment & Plan [facility] CT CAP with mildly displaced R lateral 3rd-6th rib fractures and nondisplaced 7th-8th rib fractures. Tiny R pneumothorax and trace R pleural effusion noted - S/p rib fixation 09/[address] Chris - AM CXR () without PTX on my eval, however significant bilateral atelectasis - CT to WS, 110 ml of output over 24 hours, will likely remove today - Nocturnal bipap to help with atelectasis, oxygenating well on nasal cannula - AM CXR - Cardiac monitoring - O2 PRN for O2 sat <92% - Aggressive pulmonary hygiene/IS/Acapella-encourage pt to use today given atelectasis as above - Multimodal pain control - PT/OT daily. OOB TID Chief Complaint: L sided chest wall pain Interval History: Patient states that he still has some pain Allergies: Reviewed Allergies Allergen Reactions Motrin [Ibuprofen] Anaphylaxis Medications: Scheduled Medications: acetaminophen 650 mg Oral Q4H enoxaparin (LOVENOX) injection 40 mg Subcutaneous BID gabapentin 300 mg Oral Q8H COUNT INCLUDES THE [facility] hydroCHLOROthiazide 12.5 mg Oral Daily ipratropium-albuterol 3 mL Inhalation Once methocarbamol 750 mg Oral Q8H COUNT INCLUDES THE [facility] polyethylene glycol 17 g Oral Daily senna-docusate 1 tablet Oral BID Scheduled Infusions: PRN Med's: acetaminophen OR acetaminophen OR acetaminophen, aluminum-magnesium hydroxide-simethicone, bisacodyl, hydrALAZINE, magnesium hydroxide, methocarbamol, nalOXone AND Notify physician AND naloxone, ondansetron OR ondansetron, oxyCODONE, traZODone Subjective: 10 systems were reviewed as below. All were negative other than, outlined below. Patient endorses still having pain, but does improve with medication, patient also getting relief with robaxin. Pt endorses he was able to get out of bed yesterday and his pain with coughing was not as bad compared to the previous day. He endorsed having a few BMs last night and abdominal gas pain as resolved. Deniesshortness of breath General: Negative Neuro: Negative HEENT: Negative CV: Negative Pulm: as above GI: as above Pelvis: Negative : Negative Spine: denies neck or back pain MSK: Negative Skin: Negative Objective: Recent vital signs reviewed Recent vital signs: Temp: [97.6 F (36.4 C)-98.3 F (36.8 C)] 98 F (36.7 C) Heart Rate: [73-87] 73 Resp: [12-18] 12 BP: (140-156)/(80-87) 153/87 General: No acute distress Neurological: GCS 15, no focal neurological deficits Head: Normocephalic, face is symmetrical & is nontender Eyes: PERRLA & EOM's intact, gross vision is intact ENT: Gross hearing intact, moist mucous membranes, trachea is midline Chest: Symmetrical chest rise, chest wall is tender to the R lateral chest wall, R CT in place without air leak, serosang output, incision well approximated with grace, pink and healing, moderate amount of serious drainage noted on incision drsg, no crepitus crepitus CV: S1 & S2 noted, no murmur/rub/gallop, palpable pulses, HDS Pulm: Lungs CTA & equal bilaterally, diminished throughout, no distress noted. Oxygenating wellon RA GI: Abd soft, non-distended, nontender, no peritoneal signs : Voids without difficulty Spine: No c-collar , C/T/L/S spine is nontender with palpation, no step-off's or deformities, no neuro deficits MSK: Extremities are non-tender, MOEx4 with equal & 5/5 strength, sensation intact, neurovascular intact Skin: Skin warm, dry & grossly intact, no obvious rashes or lesions Laboratory Studies: Recent laboratory studies reviewed CBC: Results from last 7 days Lab Units 09/10/19 0411 WBC K/mcL 10.84 HGB g/dL 12.8* HCT % 38.5* PLT K/mcL 235 Results from last 7 days Lab Units 09/10/19 0411 09/09/19 0434 09/09/19 0412 HGB g/dL 12.8* -- 13.3* HEMOGLOBIN BG g/dL -- 12.9* -- Coags: Results from last 7 days Lab Units 09/07/19 1643 INR 1.1 Results from last 7 days Lab Units 09/07/19 1643 INR 1.1 Chem: Results from last 7 days Lab Units 09/10/19 0411 SODIUM mmol/L 135 POTASSIUM mmol/L 3.9 CHLORIDE mmol/L 95* BUN mg/dL 11 CREATININE mg/dL 0.43* CALCIUM mg/dL 8.8 GLUCOSE mg/dL 133* Results from last 7 days Lab Units 09/10/19 0411 09/09/1941109/08/19 0457 CREATININE mg/dL 0.43* 0.43* 0.48* Cardiac Enzymes: No results found for: CKTOTAL, CKMB, HSCRP, TROPONINI LFT's: Invalid input(s): LABALBU Diagnostic Imaging: Recent diagnostic imaging/reports reviewed XR Chest 1 View Preliminary Result Slight improvement in aeration in portions of the right lung with residual atelectatic change and probable small right pleural effusion. Right chest tube remains present. No definite pneumothorax. [facility] Workstation ID: [id number] XR Chest 1 View Final Result 1. Right-sided chest tube in place with no definite pneumothorax. Moderate, likely partially loculated right-sided pleural effusion is unchanged. 2. Background interstitial prominence and bilateral atelectatic changes, not significantly changed. [facility]/hff Workstation ID: [id number] XR Chest 1 View Final Result 1. No pneumothorax. 2. Persistent right lung volume loss with a band of atelectasis in the right lung base and elevation of the right hemidiaphragm. [facility]jk Workstation ID: [id number] XR Chest 1 View Final Result 1. There is a chest tube in the right hemithorax. No pneumothorax. 2. Atelectasis throughout the right lung is stable. 3. No pleural effusion appreciated. [facility]/cdr Workstation ID: [id number] XR Chest 1 View Final Result There may be a tiny right apical pneumothorax. [facility] Workstation ID: [id number] XR Chest 1 View Final Result 1. Multiple right-sided rib fractures seen on the CT chest, abdomen and pelvis from [facility] on 09/07/2019 are not appreciable on this study. 2. Low lung volumes with bibasilar hypoventilation otherwise no acute process involving lungs. 3. Previously described small right pneumothorax is not appreciable on this study. [facility]/f Workstation ID: [id number] XR Comparison Import Final Result CT Comparison Import Final Result CT Comparison Import Final Result CT Comparison Import Final Result XR Chest 1 View Final Result 1. 4 mm right apical pneumothorax, likely stable compared to the prior CT but not visualized on theprevious chest radiograph. Recommend short-term continued radiographic follow-up. 2. Right rib fractures noted on previous CT are not well visualized radiographically. There is mildright chest wall subcutaneous emphysema. 3. Limited study but no other definite acute process. [facility]/lab Workstation ID: [id number] Antolin Schmitz MD 09/12/2019 7:48 AM Associated attestation - [place] Chris MD - 09/12/2019 8:32 AM EST I saw and evaluated this trauma patient. I discussed the case including traumatic injuries, pertinent imaging findings, and labs with the [facility] trauma team. I agree with the findings and plan as documented in the note. *T9 D/c tube today * Lindsay Macias LSW - 09/11/2019 3:58 PM EST DISCHARGE PLAN PROGRESS NOTE Date: 09/11/2019 Time: 3:59 PM Patient Name: Solomon Zamora Date of : 1975 Sex: Male Discharge Readiness Expected Discharge Date: 09/13/19 Anticipated Discharge Plan Anticipated HME: None Anticipated Home Care Needs: Home health care Anticipated Facility Type: Home care DOCUMENTATION ANALYST received call from [facility] admissions stating they are not in- network with patient's insurance. DOCUMENTATION ANALYST also called in referral to [facility] and left a voicemail requesting callback with fax number to send referral to. DOCUMENTATION ANALYST also called patient's insurance [employer] ([phone]), and left voicemail requesting assistance with finding accurate in-network agencies. Addendum (4:09pm): [facility] unsure if they are in-network but agreeable to looking at referral, referral faxed. * Raine Jackson MD - 09/11/2019 1:19 PM EST Raine Jackson MD [facility] PROGRESS NOTE Patient Name: Solomon Zamora PCP: Antolin Barron MD Perpetual Assessment: Solomon Zamora is a 44 y.o. male who presented from outside hospital on 09/07/2019 with rib fractures s/p fall. [facility] is consulted for medical management. Assessment and Plan Fall/trauma/right rib fractures - Mechanical fall from a height of 4 to 5 feet - Outside CT scan with mild displaced right lateral 3-6 ribs and nondisplaced 7- 8 rib fractures, tiny right pneumothorax - s/p thoracoplasty with rib fixations of ribs 3, 4, 5, 7, and 8, intercostal nerve blocks of 3, 4,5, 6, 7, and 8, complex wound closure, thoracotomy with evacuation of hemothorax and chest tube placement on 09/08 per TS - post-op management including DVT prophylaxis, pain meds, dispo per TS team Hypertension - bp intermittently elevated secondary to pain but improving overall - Continue home hydrochlorothiazide - added IV prns for SBP > 180 Morbid obesity - BMI 57.38 - encourage diet/exercise Code Status: Full DVT Prophylaxis Deferred to Primary Service Disposition and Comments Appreciate c/s, will follow with you CC / Reason for follow up: Med management SUBJECTIVE: Pt seen and examined this am. He was sitting in a chair and is doing better than he wasyesterday. Pain improved. No cp, sob, n/v. Tolerating diet. Moving his bowels. ROS: < >> The following system(s) were reviewed. Pertinent positive and negative findings are noted in the HPI. [x] Const [] Eyes [] ENT [x] Resp [x] CV [x] GI [] [] Neuro [] Musc [] Skin [] Psych [] Endo [] Allergy [] Heme/Lymph PHYSICAL EXAMINATION: << >>>>> Temp: [97.6 F (36.4 C)-98.5 F (36.9 C)] 97.6 F (36.4 C) Heart Rate: [79-89] 87 Resp: [13-18] 16 BP: (140-156)/(80-97) 140/80 FiO2 (%): 30 GENERAL: NAD, morbidly obese EYES: Conjunctiva and sclera clear. ENT: Hearing intact. CV: Reg, no murmur. No JVD. No edema. Chest tube in place. RESP: Clear, no rales, rhonchi, wheezes. No increase in respiratory effort. GI: Non-distended, +BS, soft, non-tender. SKIN: Warm and dry. No rashes. NEURO: Alert, Ox3. Grossly normal motor and sensory exam. No focal deficits. PSYCH: Mood and affect are appropriate. Cooperative. Normal judgment and insight. I/O s last 3 shifts: I/O last 3 completed shifts: In: 863.8 [I.V.:863.8] Out: 1610 [Urine:1175; Stool:200; Chest Tube:235] Reviewed 09/11/19 1:19 PM: [x] Laboratory [x] Transcriptions [] Radiology [] Microbiology [] Cardiology [] Outside Records [x] Medications [] Family Time Spent/CCM Time: * Alex Belle RN - 09/11/2019 9:19 AM EST COMPLEX DISCHARGE Date: 09/11/2019 Time: 9:19 AM Patient Name: Solomon Zamora Date of : 1975 Sex: Male Met with pt at bedside to discuss discharge planning. Pt requests HHC with [facility]. [facility] orders placed for PT/OT. Called Mary at [facility]. Mary states they will review and notify CM of decision. [facility] referral bundle faxed. Pt denies further needs presently. Chest tube remains in place. Anticipate discharge Saturday or Marv. Addendum 1020: Mary from [facility] states they are out of network and cannot accept. Called [facility] CM [place] and left VMM with callback number requesting resources. HIPPA maintained. Addendum 1038: Provided a printed [facility] list from [facility] website to pt. Addendum 1208: Met with pt. Pt states to send referral to any [facility]. Sent referral to [facility] and attempted to call; no answer. Will attempt to call after 1300. Addendum 1258: Spoke with intake at [facility]; she requested referral to be faxed to [phone]. Fax complete. Discharge Plan Shared UM/CC and RN Source of Information: Patient Living Arrangements: Alone Support Systems: Family members, Friends/neighbors Functional Status: Independent Type of Residence: Private residence Prior to Admission Home Care Services: No Current Home Equipment: Wheeled walker, Wheel chair, Cane, Crutches, Tub/Shower chair Insurance Coverage for Prescriptions: Yes Anticipated Discharge Plan Anticipated HME: None Anticipated Home Care Needs: Home health care Anticipated Facility Type: Home care Potential for Readmission Potential for Readmission: No Discharge Readiness Expected Discharge Date: 09/13/19 [facility] Disposition D/C Disposition: Home Health Care Services Related to Current Admission?: Yes Agency/Destination: [facility] Home Care Needs : Home health care HME: None Transportation Type: Auto Options Reviewed: List provided Reason for Choice: Patient/Family preference * Lino Garcia [employer]SEMBLER - 09/11/2019 7:33 AM EST Trauma Service Progress Note Demographic/Patient Information: Patient Name: Solomon Zamora Age/Sex: 44 y.o., male : 1975 Code Status: Full Code Impression/Plan: Discussed with Trauma Attending Dr. Noble on rounds - Agreed with plan of care Solomon Zamora is a 44 y.o. male who is s/p Fall . Trauma: Tertiary exam: completed & no additional injuries noted Consultants: Med Pain & nausea control Diet: yes PT/OT: ordered DVT prophylaxis: Lovenox sq and SCDs [place]: Dispo plan - pending * Multiple closed fractures of ribs of right side Assessment & Plan [facility] CT CAP with mildly displaced R lateral 3rd-6th rib fractures and nondisplaced 7th-8th rib fractures. Tiny R pneumothorax and trace R pleural effusion noted - S/p rib fixation 09/[address] Chris - AM CXR () without PTX on my eval, however significant bilateral atelectasis final read pending - CT to WS, but 210 out so will keep in place for now. - Nocturnal bipap to help with atelectasis, oxygenating well on nasal cannula - AM CXR - Cardiac monitoring - O2 PRN for O2 sat <92% - Aggressive pulmonary hygiene/IS/Acapella-encourage pt to use today given atelectasis as above - Multimodal pain control - PT/OT daily. OOB TID Fall Assessment & Plan Mechanical fall (slipped on ice) from deer/tree stand (4-6 feet high) onto anterior abdomen. No head strike, no LOC, no AC/AP. - On exam, GCS 15. No focal neurological deficits. HDS. - AM labs (09/08) reviewed, unremarkable - [facility] imaging: CT H, Cs, CAP, CXR with multiple R rib fractures, otherwise negative - [facility] CT C-spine negative for acute injury; C-spine cleared - [facility]: CXR - EKG NSR - Pain/nausea control - PT/OT when able - Dispo pending Hypertension Assessment & Plan Per history - Resume home meds - Cardiac montoring Morbid obesity (HCC) Assessment & Plan Noted on admission with BMI 57 -Encourage dietary changes and exercise when able -F/u with PCP at discharge Abnormal radiograph Assessment & Plan Trauma imaging showed incidental findings including - 7 mm subpleural nodule in the right middle lobe, adjacent to the major fissure. 5 mm subpleural nodule in the right middle lobe - Fatty infiltration of liver - 1.8 cm L renal cyst Will discuss with patient prior to discharge. Follow-up with PCP as an outpatient. Chief Complaint: L sided chest wall pain Interval History: Acute events reported overnight - no Allergies: Reviewed Allergies Allergen Reactions Motrin [Ibuprofen] Anaphylaxis Medications: Scheduled Medications: acetaminophen 650 mg Oral Q4H bisacodyl 10 mg Rectal Daily enoxaparin (LOVENOX) injection 40 mg Subcutaneous BID gabapentin 300 mg Oral Q8H TREVIN hydroCHLOROthiazide 12.5 mg Oral Daily ipratropium-albuterol 3 mL Inhalation Once methocarbamol 500 mg Oral Q8H TREVIN polyethylene glycol 17 g Oral BID senna-docusate 1 tablet Oral BID Scheduled Infusions: PRN Med's: acetaminophen OR acetaminophen OR acetaminophen, aluminum-magnesium hydroxide-simethicone, hydrALAZINE, magnesium hydroxide, methocarbamol, nalOXone AND Notify physician AND naloxone,ondansetron OR ondansetron, oxyCODONE, traZODone Subjective: 10 systems were reviewed as below. All were negative other than, outlined below. Patient endorses still having pain, but does improve with medication, patient also getting relief with robaxin. Pt endorses he was able to get out of bed yesterday and his pain with coughing was not as bad compared to the previous day. He endorsed having a few BMs last night and abdominal gas pain as resolved. Deniesshortness of breath General: Negative Neuro: Negative HEENT: Negative CV: Negative Pulm: as above GI: as above Pelvis: Negative : Negative Spine: denies neck or back pain MSK: Negative Skin: Negative Objective: Recent vital signs reviewed Recent vital signs: Temp: [98 F (36.7 C)-98.5 F (36.9 C)] 98.5 F (36.9 C) Heart Rate: [80-90] 81 Resp: [13-18] 16 BP: (144-160)/(82-97) 156/97 FiO2 (%): 30 General: No acute distress Neurological: GCS 15, no focal neurological deficits Head: Normocephalic, face is symmetrical & is nontender Eyes: PERRLA & EOM's intact, gross vision is intact ENT: Gross hearing intact, moist mucous membranes, trachea is midline Chest: Symmetrical chest rise, chest wall is tender to the R lateral chest wall, R CT in place without air leak, serosang output, incision well approximated with grace, pink and healing, moderate amount of serious drainage noted on incision drsg, no crepitus crepitus CV: S1 & S2 noted, no murmur/rub/gallop, palpable pulses, HDS Pulm: Lungs CTA & equal bilaterally, diminished throughout, no distress noted. Oxygenating wellon RA GI: Abd soft, non-distended, nontender, no peritoneal signs : Voids without difficulty Spine: No c-collar , C/T/L/S spine is nontender with palpation, no step-off's or deformities, no neuro deficits MSK: Extremities are non-tender, MOEx4 with equal & 5/5 strength, sensation intact, neurovascular intact Skin: Skin warm, dry & grossly intact, no obvious rashes or lesions Laboratory Studies: Recent laboratory studies reviewed CBC: Results from last 7 days Lab Units 09/10/19 0411 WBC K/mcL 10.84 HGB g/dL 12.8* HCT % 38.5* PLT K/mcL 235 Results from last 7 days Lab Units 09/10/19 0411 09/09/19 0434 09/09/19 0412 HGB g/dL 12.8* -- 13.3* HEMOGLOBIN BG g/dL -- 12.9* -- Coags: Results from last 7 days Lab Units 09/07/19 1643 INR 1.1 Results from last 7 days Lab Units 09/07/19 1643 INR 1.1 Chem: Results from last 7 days Lab Units 09/10/19 0411 SODIUM mmol/L 135 POTASSIUM mmol/L 3.9 CHLORIDE mmol/L 95* BUN mg/dL 11 CREATININE mg/dL 0.43* CALCIUM mg/dL 8.8 GLUCOSE mg/dL 133* Results from last 7 days Lab Units 09/10/19 0411 09/09/19 0412 09/08/19 0457 CREATININE mg/dL 0.43* 0.43* 0.48* Cardiac Enzymes: No results found for: CKTOTAL, CKMB, HSCRP, TROPONINI LFT's: Invalid input(s): LABALBU Diagnostic Imaging: Recent diagnostic imaging/reports reviewed XR Chest 1 View Non-public Result 1. Right-sided chest tube in place with no definite pneumothorax. Moderate, likely partially loculated right-sided pleural effusion is unchanged. 2. Background interstitial prominence and bilateral atelectatic changes, not significantly changed. Workstation ID: [id number] XR Chest 1 View Final Result 1. No pneumothorax. 2. Persistent right lung volume loss with a band of atelectasis in the right lung base and elevation of the right hemidiaphragm. HIH/sjk Workstation ID: [id number] XR Chest 1 View Final Result 1. There is a chest tube in the right hemithorax. No pneumothorax. 2. Atelectasis throughout the right lung is stable. 3. No pleural effusion appreciated. DMG/cdr Workstation ID: [id number] XR Chest 1 View Final Result There may be a tiny right apical pneumothorax. HIH/trw Workstation ID: [id number] XR Chest 1 View Final Result 1. Multiple right-sided rib fractures seen on the CT chest, abdomen and pelvis from [facility] on 09/07/2019 are not appreciable on this study. 2. Low lung volumes with bibasilar hypoventilation otherwise no acute process involving lungs. 3. Previously described small right pneumothorax is not appreciable on this study. KKV/hff Workstation ID: [id number] XR Comparison Import Final Result CT Comparison Import Final Result CT Comparison Import Final Result CT Comparison Import Final Result XR Chest 1 View Final Result 1. 4 mm right apical pneumothorax, likely stable compared to the prior CT but not visualized on theprevious chest radiograph. Recommend short-term continued radiographic follow-up. 2. Right rib fractures noted on previous CT are not well visualized radiographically. There is mildright chest wall subcutaneous emphysema. 3. Limited study but no other definite acute process. SAY/lab Workstation ID: [id number] Lino Garcia CNP 09/11/2019 7:34 AM Associated attestation - Lennox Noble MD - 09/11/2019 9:54 PM EST I saw and evaluated the patient. I discussed the case with the resident/DISTRIBUTION SALES REPRESENTATIVE and agree with the findings and plan as documented in his/her note and/or any note I supplied. * Raine Jackson MD - 09/10/2019 2:31 PM EST Raine Jackson MD [facility] Hospitalists DAILY PROGRESS NOTE Patient Name: Solomon Zamora PCP: Antolin Barron MD Perpetual Assessment: Solomon Zamora is a 44 y.o. male who presented from outside hospital on 09/07/2019 with rib fractures s/p fall. [facility] is consulted for medical management. Assessment and Plan Fall/trauma/right rib fractures - Mechanical fall from a height of 4 to 5 feet - Outside CT scan with mild displaced right lateral 3-6 ribs and nondisplaced 7- 8 rib fractures, tiny right pneumothorax - s/p thoracoplasty with rib fixations of ribs 3, 4, 5, 7, and 8, intercostal nerve blocks of 3, 4,5, 6, 7, and 8, complex wound closure, thoracotomy with evacuation of hemothorax and chest tube placement on 09/08 per TS - post-op management including DVT prophylaxis, pain meds, dispo per TS team Hypertension - bp intermittently elevated secondary to pain - Continue home hydrochlorothiazide - added IV prns for SBP > 180 Morbid obesity - BMI 57.38 - encourage diet/exercise Code Status: Full DVT Prophylaxis Deferred to Primary Service Disposition and Comments Appreciate c/s, will follow with you CC / Reason for follow up: Med management SUBJECTIVE: Pt seen and examined this am. He was sitting in a chair and is doing better than he wasyesterday. Pain improved. No cp, sob, n/v. Tolerating diet. No BM or flatus. ROS: < >> The following system(s) were reviewed. Pertinent positive and negative findings are noted in the HPI. [x] Const [] Eyes [] ENT [x] Resp [x] CV [x] GI [] [] Neuro [] Musc [] Skin [] Psych [] Endo [] Allergy [] Heme/Lymph PHYSICAL EXAMINATION: << >>>>> Temp: [97.8 F (36.6 C)-98.5 F (36.9 C)] 98.3 F (36.8 C) Heart Rate: [81-90] 90 Resp: [9-28] 18 BP: (152-167)/(66-90) 158/90 FiO2 (%): 30 GENERAL: NAD, morbidly obese EYES: Conjunctiva and sclera clear. ENT: Hearing intact. CV: Reg, no murmur. No JVD. No edema. Chest tube in place. RESP: Clear, no rales, rhonchi, wheezes. No increase in respiratory effort. GI: Non-distended, +BS, soft, non-tender. SKIN: Warm and dry. No rashes. NEURO: Alert, Ox3. Grossly normal motor and sensory exam. No focal deficits. PSYCH: Mood and affect are appropriate. Cooperative. Normal judgment and insight. I/O s last 3 shifts: I/O last 3 completed shifts: In: 1655.8 [P.O.:500; I.V.:1155.8] Out: 1505 [Urine:1025; Chest Tube:480] Reviewed 09/10/19 2:31 PM: [x] Laboratory [x] Transcriptions [] Radiology [] Microbiology [] Cardiology [] Outside Records [x] Medications [] Family Time Spent/CCM Time: * Alex Belle RN - 09/10/2019 11:22 AM EST DISCHARGE PLAN PROGRESS NOTE Date: 09/10/2019 Time: 11:22 AM Patient Name: Solomon Zamora Date of : 1975 Sex: Male Received call from LUISA Baca for [place] ([phone], at [facility]) requesting her info given to pt and to inform him she will touch base after d/c. Info placed on AVS. Discharge Readiness Expected Discharge Date: 09/11/19 [facility] Disposition HME: None Transportation Type: Auto Anticipated Discharge Plan Anticipated HME: None Anticipated Home Care Needs: Home health care Anticipated Facility Type: Outpatient rehabilitation * Lino Garcia CNP - 09/10/2019 8:15 AM EST Trauma Service Progress Note Demographic/Patient Information: Patient Name: Solomon Zamora Age/Sex: 44 y.o., male : 1975 Code Status: Full Code Impression/Plan: Discussed with Trauma Attending Dr. Gibson on rounds - Agreed with plan of care Solomon Zamora is a 44 y.o. male who is s/p Fall . Trauma: Tertiary exam: completed & no additional injuries noted Consultants: Med Pain & nausea control Diet: yes PT/OT: ordered DVT prophylaxis: Lovenox sq and SCDs [place]: Dispo plan - pending * Multiple closed fractures of ribs of right side Assessment & Plan OL CT CAP with mildly displaced R lateral 3rd-6th rib fractures and nondisplaced 7th-8th rib fractures. Tiny R pneumothorax and trace R pleural effusion noted - S/p rib fixation 09/[address] Chris - AM CXR () without PTX on my eval, however significant bilateral atelectasis final read pending - CT to WS, but 190 out so will keep in place for now. - Nocturnal bipap to help with atelectasis, oxygenating well on nasal cannula - AM CXR - Cardiac monitoring - O2 PRN for O2 sat <92% - Aggressive pulmonary hygiene/IS/Acapella-encourage pt to use today given atelectasis as above - Multimodal pain control - PT/OT daily. OOB TID Fall Assessment & Plan Mechanical fall (slipped on ice) from deer/tree stand (4-6 feet high) onto anterior abdomen. No head strike, no LOC, no AC/AP. - On exam, GCS 15. No focal neurological deficits. HDS. - AM labs (09/08) reviewed, unremarkable - [facility] imaging: CT H, Cs, CAP, CXR with multiple R rib fractures, otherwise negative - [facility] CT C-spine negative for acute injury; C-spine cleared - [facility]: CXR - EKG NSR - Pain/nausea control - PT/OT when able - Dispo pending Hypertension Assessment & Plan Per history - Resume home meds - Cardiac montoring Morbid obesity (HCC) Assessment & Plan Noted on admission with BMI 57 -Encourage dietary changes and exercise when able -F/u with PCP at discharge Abnormal radiograph Assessment & Plan Trauma imaging showed incidental findings including - 7 mm subpleural nodule in the right middle lobe, adjacent to the major fissure. 5 mm subpleural nodule in the right middle lobe - Fatty infiltration of liver - 1.8 cm L renal cyst Will discuss with patient prior to discharge. Follow-up with PCP as an outpatient. Chief Complaint: L sided chest wall pain Interval History: Acute events reported overnight - no Allergies: Reviewed Allergies Allergen Reactions Motrin [Ibuprofen] Anaphylaxis Medications: Scheduled Medications: acetaminophen 650 mg Oral Q4H enoxaparin (LOVENOX) injection 40 mg Subcutaneous BID gabapentin 300 mg Oral Q8H TREVIN hydroCHLOROthiazide 12.5 mg Oral Daily ipratropium-albuterol 3 mL Inhalation Once lidocaine 1 patch Transdermal Daily methocarbamol 500 mg Oral Q8H TREVIN polyethylene glycol 17 g Oral Daily senna-docusate 1 tablet Oral BID Scheduled Infusions: lactated Ringers 75 mL/hr (09/10/19 7140) PRN Med's: acetaminophen OR acetaminophen OR acetaminophen, aluminum-magnesium hydroxide-simethicone, bisacodyl, hydrALAZINE, HYDROmorphone, magnesium hydroxide, methocarbamol, nalOXone AND Notify physician AND naloxone, ondansetron OR ondansetron, oxyCODONE, traZODone Subjective: 10 systems were reviewed as below. All were negative other than, outlined below. Pt endorses pain that is 7/10 when he gets OOB. Pain well controlled when in bed. Pt endorses pain also worse with coughing. Endorses pain medication helping pain. Patient endorses having abdominal gas pain and feelingconstipated. Endorses tolerating regular diet, denies shortness of breath. General: Negative Neuro: Negative HEENT: Negative CV: Negative Pulm: as above GI: as above Pelvis: Negative : Negative Spine: denies neck or back pain MSK: Negative Skin: Negative Objective: Recent vital signs reviewed Recent vital signs: Temp: [97.7 F (36.5 C)-98.5 F (36.9 C)] 98.5 F (36.9 C) Heart Rate: [78-94] 89 Resp: [9-28] 13 BP: (142-167)/(66-88) 160/82 FiO2 (%): 30 General: No acute distress Neurological: GCS 15, no focal neurological deficits Head: Normocephalic, face is symmetrical & is nontender Eyes: PERRLA & EOM's intact, gross vision is intact ENT: Gross hearing intact, moist mucous membranes, trachea is midline Chest: Symmetrical chest rise, chest wall is tender to the R lateral chest wall, R CT in place without air leak, serosang output, incision well approximated with grace, pink and healing, moderate amount of serious drainage noted on incision drsg, no crepitus crepitus CV: S1 & S2 noted, no murmur/rub/gallop, palpable pulses, HDS Pulm: Lungs CTA & equal bilaterally, diminished throughout, no distress noted. Oxygenating wellon 3L NC GI: Abd soft, non-distended, nontender, no peritoneal signs : Voids without difficulty Spine: No c-collar , C/T/L/S spine is nontender with palpation, no step-off's or deformities, no neuro deficits MSK: Extremities are non-tender, MOEx4 with equal & 5/5 strength, sensation intact, neurovascular intact Skin: Skin warm, dry & grossly intact, no obvious rashes or lesions Laboratory Studies: Recent laboratory studies reviewed CBC: Results from last 7 days Lab Units 09/10/19 0411 WBC K/mcL 10.84 HGB g/dL 12.8* HCT % 38.5* PLT K/mcL 235 Results from last 7 days Lab Units 09/10/19 0411 09/09/19 0434 09/09/19 0412 HGB g/dL 12.8* -- 13.3* HEMOGLOBIN BG g/dL -- 12.9* -- Coags: Results from last 7 days Lab Units 09/07/19 1643 INR 1.1 Results from last 7 days Lab Units 09/07/19 1643 INR 1.1 Chem: Results from last 7 days Lab Units 09/10/19 0411 SODIUM mmol/L 135 POTASSIUM mmol/L 3.9 CHLORIDE mmol/L 95* BUN mg/dL 11 CREATININE mg/dL 0.43* CALCIUM mg/dL 8.8 GLUCOSE mg/dL 133* Results from last 7 days Lab Units 09/10/19 0411 09/09/19 0412 09/08/19 0457 CREATININE mg/dL 0.43* 0.43* 0.48* Cardiac Enzymes: No results found for: CKTOTAL, CKMB, HSCRP, TROPONINI LFT's: Invalid input(s): LABALBU Diagnostic Imaging: Recent diagnostic imaging/reports reviewed XR Chest 1 View Final Result 1. There is a chest tube in the right hemithorax. No pneumothorax. 2. Atelectasis throughout the right lung is stable. 3. No pleural effusion appreciated. DMG/cdr Workstation ID: [id number] XR Chest 1 View Final Result There may be a tiny right apical pneumothorax. HI/trw Workstation ID: [id number] XR Chest 1 View Final Result 1. Multiple right-sided rib fractures seen on the CT chest, abdomen and pelvis from [facility] on 09/07/2019 are not appreciable on this study. 2. Low lung volumes with bibasilar hypoventilation otherwise no acute process involving lungs. 3. Previously described small right pneumothorax is not appreciable on this study. KKV/f Workstation ID: [id number] XR Comparison Import Final Result CT Comparison Import Final Result CT Comparison Import Final Result CT Comparison Import Final Result XR Chest 1 View Final Result 1. 4 mm right apical pneumothorax, likely stable compared to the prior CT but not visualized on theprevious chest radiograph. Recommend short-term continued radiographic follow-up. 2. Right rib fractures noted on previous CT are not well visualized radiographically. There is mildright chest wall subcutaneous emphysema. 3. Limited study but no other definite acute process. SAY/lab Workstation ID: [id number] XR Chest 1 View (Results Pending) Lino Garcia CNP 09/10/2019 8:15 AM Associated attestation - Wayne Gibson MD - 09/10/2019 9:18 PM EST I saw and evaluated the patient. I discussed the case with the resident/DISTRIBUTION SALES REPRESENTATIVE and agree with the findings and plan as documented in his/her note and/or any note I supplied. Chest tube to waterseal Aggressive pulmonary toilet. * Rosario Jordan RN - 09/09/2019 3:00 PM EST Anesthesia Progress Note 1 Day Post-Op Procedure(s): THORACOPLASTY WITH RIB FIXATION 3,4,5,7 AND 8, COMPLEX WOUND CLOSURE Comment: Pt unavailable @ time of visit. Chart review shows pt alert and oriented x 4, BONNIE x 4. No c/o post op nausea, vomiting noted. Temp: [36.4 C-37.3 C] 36.7 C Heart Rate: [74-94] 85 Resp: [13-25] 16 BP: (115-144)/(77-94) 137/77 * Raine Jackson MD - 09/09/2019 2:02 PM EST Raine Jackson MD [facility] Hospitalists DAILY PROGRESS NOTE Patient Name: Solomon Zamora PCP: Antolin Barron MD Perpetual Assessment: Solomon Zamora is a 44 y.o. male who presented from outside hospital on 09/07/2019 with rib fractures s/p fall. [facility] is consulted for medical management. Assessment and Plan Fall/trauma/right rib fractures - Mechanical fall from a height of 4 to 5 feet - Outside CT scan with mild displaced right lateral 3-6 ribs and nondisplaced 7- 8 rib fractures, tiny right pneumothorax - s/p thoracoplasty with rib fixations of ribs 3, 4, 5, 7, and 8, intercostal nerve blocks of 3, 4,5, 6, 7, and 8, complex wound closure, thoracotomy with evacuation of hemothorax and chest tube placement on 09/08 per TS - post-op management including DVT prophylaxis, pain meds, dispo per TS team Hypertension - bp intermittently elevated secondary to pain - Continue home hydrochlorothiazide - will add IV prns for SBP > 180 Morbid obesity - BMI 57.38 - encourage diet/exercise Code Status: Full DVT Prophylaxis Deferred to Primary Service Disposition and Comments Appreciate c/s, will follow with you CC / Reason for follow up: Med management SUBJECTIVE: Pt seen and examined this am. He was sitting in a chair and appeared uncomfortable. He is complaining of pain at the chest tube site. He is also having back pain. No sob but having trouble taking a deep breath secondary to pain. No n/v. ROS: < >> The following system(s) were reviewed. Pertinent positive and negative findings are noted in the HPI. [x] Const [] Eyes [] ENT [x] Resp [x] CV [x] GI [] [] Neuro [] Musc [] Skin [] Psych [] Endo [] Allergy [] Heme/Lymph PHYSICAL EXAMINATION: << >>>>> Temp: [97.6 F (36.4 C)-99.2 F (37.3 C)] 98.1 F (36.7 C) Heart Rate: [74-102] 85 Resp: [8-28] 16 BP: (115-180)/(77-116) 137/77 FiO2 (%): 30 GENERAL: NAD, morbidly obese EYES: Conjunctiva and sclera clear. ENT: Hearing intact. CV: Reg, no murmur. No JVD. No edema. Chest tube in place. RESP: Clear, no rales, rhonchi, wheezes. No increase in respiratory effort. GI: Non-distended, +BS, soft, non-tender. SKIN: Warm and dry. No rashes. NEURO: Alert, Ox3. Grossly normal motor and sensory exam. No focal deficits. PSYCH: Mood and affect are appropriate. Cooperative. Normal judgment and insight. I/O s last 3 shifts: I/O last 3 completed shifts: In: [I.V.:] Out: 0 [Urine:1950; Blood:150; Chest Tube:570] Reviewed 09/09/19 2:02 PM: [x] Laboratory [x] Transcriptions [] Radiology [] Microbiology [] Cardiology [] Outside Records [x] Medications [] Family Time Spent/CCM Time: * Alex Belle RN - 09/09/2019 11:43 AM EST COMPLEX DISCHARGE Date: 09/09/2019 Time: 11:44 AM Patient Name: Solomon Zamora Date of : 1975 Sex: Male PT/OT recs 2-3x/wk. Met with pt at bedside, sister present. Introduced self and role within Case Management. Pt verifies Dr Antolin Barron is PCP and states last appt was April 2019. Pt has insurance coverage for prescription medications. Pt states has many family members that will provide assistance at home if needed, and will also provide transportation upon discharge. Chest tube remains in place.Discussed therapy recs with pt. Pt states he is not ready at present time to make decisions concerning therapy after discharge because he is unsure how he will feel. [place] therapy rehab sites would be approximately a 25-[address] drive. Pt would like follow up at later time, will wait until chest tube is discontinued to revisit discharge plan. Discharge Plan Shared UM/CC and RN Source of Information: Patient Living Arrangements: Alone Support Systems: Family members, Friends/neighbors Functional Status: Independent Type of Residence: Private residence Prior to Admission Home Care Services: No Current Home Equipment: Wheeled walker, Wheel chair, Cane, Crutches, Tub/Shower chair Insurance Coverage for Prescriptions: Yes Anticipated Discharge Plan Anticipated HME: None Anticipated Home Care Needs: Home health care Anticipated Facility Type: Outpatient rehabilitation Potential for Readmission Potential for Readmission: No Discharge Readiness Expected Discharge Date: 09/14/19 [facility] Disposition HME: None Transportation Type: Auto * Breonna Pelaez, [employer] - 09/09/2019 6:44 AM EST Trauma Service Progress Note Demographic/Patient Information: Patient Name: Solomon Zamora Age/Sex: 44 y.o., male : 1975 Code Status: Full Code Impression/Plan: Discussed with Trauma Attending Dr. Mancilla on rounds - Agreed with plan of care Solomon Zamora is a 44 y.o. male who is s/p Fall . Trauma: Tertiary exam: completed & no additional injuries noted Consultants: Medicine Pain & nausea control Diet: yes PT/OT: following DVT prophylaxis: Lovenox sq and SCDs [employer] [place]: Dispo plan - pending Fall Assessment & Plan Mechanical fall (slipped on ice) from deer/tree stand (4-6 feet high) onto anterior abdomen. No head strike, no LOC, no AC/AP. - On exam, GCS 15. No focal neurological deficits. HDS. - AM labs (09/08) reviewed, unremarkable - [facility] imaging: CT H, Cs, CAP, CXR with multiple R rib fractures, otherwise negative - [facility] CT C-spine negative for acute injury; C-spine cleared - [facility]: CXR - EKG NSR - Pain/nausea control - PT/OT when able - Dispo pending * Multiple closed fractures of ribs of right side Assessment & Plan [facility] CT CAP with mildly displaced R lateral 3rd-6th rib fractures and nondisplaced 7th-8th rib fractures. Tiny R pneumothorax and trace R pleural effusion noted - S/p rib fixation 09/[address] Chris - AM CXR (09/09) without PTX - Place CT to WS - CT with 570 cc output - Pt required BiPAP overnight, now oxygenating well on nasal cannula - AM CXR - Cardiac monitoring - O2 PRN for O2 sat <92% - Aggressive pulmonary hygiene/IS/Acapella - Multimodal pain control - PT/OT when able Hypertension Assessment & Plan Per history - Resume home meds - Cardiac montoring Abnormal radiograph Assessment & Plan Trauma imaging showed incidental findings including - 7 mm subpleural nodule in the right middle lobe, adjacent to the major fissure. 5 mm subpleural nodule in the right middle lobe - Fatty infiltration of liver - 1.8 cm L renal cyst Will discuss with patient prior to discharge. Follow-up with PCP as an outpatient. Chief Complaint: Fall, rib pain Interval History: Acute events reported overnight - required BiPAP overnight post-op Allergies: Reviewed Allergies Allergen Reactions Motrin [Ibuprofen] Anaphylaxis Medications: Scheduled Medications: acetaminophen 650 mg Oral Q4H enoxaparin (LOVENOX) injection 40 mg Subcutaneous BID gabapentin 300 mg Oral Q8H TREVIN hydroCHLOROthiazide 12.5 mg Oral Daily ipratropium-albuterol 3 mL Inhalation Once lidocaine 1 patch Transdermal Daily methocarbamol 500 mg Oral Q8H TREVIN polyethylene glycol 17 g Oral Daily senna-docusate 1 tablet Oral BID Scheduled Infusions: lactated Ringers 75 mL/hr (09/09/19 1403) PRN Med's: acetaminophen OR acetaminophen OR acetaminophen, aluminum-magnesium hydroxide-simethicone, bisacodyl, hydrALAZINE, HYDROmorphone, magnesium hydroxide, methocarbamol, nalOXone AND Notify physician AND naloxone, ondansetron OR ondansetron, oxyCODONE, traZODone Subjective: 10 systems were reviewed as below. All were negative other than, outlined below. General: Negative Neuro: Negative HEENT: Negative CV: Negative Pulm: Negative GI: Negative Pelvis: Negative : Negative Spine: Negative MSK: as above Skin: Negative Objective: Recent vital signs reviewed Recent vital signs: Temp: [97.7 F (36.5 C)-99.2 F (37.3 C)] 97.8 F (36.6 C) Heart Rate: [74-94] 89 Resp: [13-28] 28 BP: (129-162)/(66-84) 152/78 FiO2 (%): 30 General: No acute distress Neurological: GCS 15, no focal neurological deficits Head: Normocephalic, face is symmetrical & is nontender Eyes: PERRLA & EOM's intact, gross vision is intact ENT: Gross hearing intact, moist mucous membranes, trachea is midline Chest: Symmetrical chest rise, chest wall is mildly tender over R chest, chest tube dsg c/d/i, withSS output, no leak, no crepitus CV: S1 & S2 noted, no murmur/rub/gallop, palpable pulses, HDS Pulm: Lungs CTA & equal bilaterally, no wheezes/rhonchi/crackles, no distress noted GI: Abd soft, non-distended, nontender, no peritoneal signs : Voiding spontaneously without difficulty Spine: No c-collar , C/T/L/S spine is nontender with palpation, no step-off's or deformities, no neuro deficits MSK: Extremities are non-tender, MOEx4 with equal & 5/5 strength, sensation intact, neurovascular intact Skin: Skin warm, dry & grossly intact, no obvious rashes or lesions Laboratory Studies: Recent laboratory studies reviewed CBC: Results from last 7 days Lab Units 09/09/1943309/09/19411 WBC K/mcL -- 11.92* HGB g/dL -- 13.3* HEMOGLOBIN BG g/dL 12.9* -- HEMATOCRIT, CALCULATED % 39.6* -- HCT % -- 40.7* PLT K/mcL -- 235 Results from last 7 days Lab Units 09/09/19 04309/09/192 09/08/19 2104 HGB g/dL -- 13.3* -- HEMOGLOBIN BG g/dL 12.9* -- 14.7 Coags: Results from last 7 days Lab Units 09/07/19 1643 INR 1.1 Results from last 7 days Lab Units 09/07/19 1643 INR 1.1 Chem: Results from last 7 days Lab Units 09/09/19 0412 SODIUM mmol/L 135 POTASSIUM mmol/L 4.4 CHLORIDE mmol/L 99 BUN mg/dL 13 CREATININE mg/dL 0.43* CALCIUM mg/dL 8.9 GLUCOSE mg/dL 144* Results from last 7 days Lab Units 09/09/19 0412 09/08/19 0457 09/07/19 1643 CREATININE mg/dL 0.43* 0.48* 0.46* Diagnostic Imaging: Recent diagnostic imaging/reports reviewed XR Chest 1 View Final Result 1. There is a chest tube in the right hemithorax. No pneumothorax. 2. Atelectasis throughout the right lung is stable. 3. No pleural effusion appreciated. DMG/cdr Workstation ID: [id number] XR Chest 1 View Final Result There may be a tiny right apical pneumothorax. [facility]/trw Workstation ID: [id number] XR Chest 1 View Final Result 1. Multiple right-sided rib fractures seen on the CT chest, abdomen and pelvis from [facility] on 09/07/2019 are not appreciable on this study. 2. Low lung volumes with bibasilar hypoventilation otherwise no acute process involving lungs. 3. Previously described small right pneumothorax is not appreciable on this study. [facility]/f Workstation ID: [id number] XR Comparison Import Final Result CT Comparison Import Final Result CT Comparison Import Final Result CT Comparison Import Final Result XR Chest 1 View Final Result 1. 4 mm right apical pneumothorax, likely stable compared to the prior CT but not visualized on theprevious chest radiograph. Recommend short-term continued radiographic follow-up. 2. Right rib fractures noted on previous CT are not well visualized radiographically. There is mildright chest wall subcutaneous emphysema. 3. Limited study but no other definite acute process. SAY/lab Workstation ID: [id number] Breonna Pelaez CNP 09/09/2019 9:50 PM * Jose Rae MD - 09/08/2019 5:10 PM EST Examined postop. Pain control an issue, continue multimodal pain control. Requiring bipap due to hypoventilation. ABG noted but patient alert and responsive. CT -20 no leak ~280 serosang out. Aggressive pulmonary toilet while awake. AM abg and CXR. documented in this encounter* Digna Ta RN - 09/24/2019 10:28 AM EST Follow up from a fall with R sided rib fractures that were plated. Also had pneumothorax Wound is draining yellow serous drainage He states that he changed dressing this morning,saturated through dressing and on to his shirt Afebrile Incision otherwise without redness except for the area mid incisional that is draining Denies chest pain or sob CXR completed in clinic * Froy Roy PA-C - 09/24/2019 10:26 AM EST Trauma Service Clinic Note: Demographic/Patient Information: Patient Name: Solomon Zamora Age/Sex: 44 y.o., male Date of : 1975 Date of Evaluation: 09/24/2019 11:17 AM Provider today: Froy Roy Impression/Plan: Multiple closed fractures of ribs of right side Right 3-8 rib fractures s/p fall on 09/08/2019 (S/p rib fixation with Dr. Chris) - No distress on RA, SpO2 94%, lung sounds clear bilaterally - Pt reports pain improved since discharge, managing with Tylenol and PRN Oxy at home - Bozman removed from right chest wall surgical incision site and reinforced with steri-strips. - Wound appears non-erythematous, non-infected and without dehiscnce but with minimal discharge. - CXR in clinic reviewed and with right lower lobe consolidation which appears improved since CXR at discharge from hospital. - Pt to follow-up with Dr. Chris for re-evaluation Chief Complaint: Trauma clinic follow-up appointment History of Present Illness: Solomon Zamora presents to the [facility] today for a follow-up appointment. Solomon Zamora is a 44 y.o. year old male who initially presented to [facility] on 09/07/2019 S/P Fall. Injuries included Right 3-8 rib fractures requiring fixation and chest tube placement. Since discharge from the hospital, pt reports pain in ribs improving but still requires a recliner while sleeping. Patient also reports mild seepage from his chest wall incision site. History: Past medical, surgical, social, & family history reviewed Past Medical History: Diagnosis Date Hypertension Past Surgical History: Procedure Laterality Date FOOT SURGERY KNEE SURGERY THORACOPLASTY WITH RIB FIXATION Right 09/08/2019 Procedure: THORACOPLASTY WITH RIB FIXATION 3,4,5,7 AND 8, COMPLEX WOUND CLOSURE; Surgeon: Phoenix Chris MD; Location: [facility] Main OR; Service: General Surgery TONSILLECTOMY Social History Socioeconomic History Marital status: Single Spouse name: Not on file Number of children: Not on file Years of education: Not on file Highest education level: Not on file Occupational History Not on file Social Needs Financial resource strain: Not on file Food insecurity Worry: Not on file Inability: Not on file Transportation needs Medical: Not on file Non-medical: Not on file Tobacco Use Smoking status: Never Smoker Smokeless tobacco: Current User Types: Chew Substance and Sexual Activity Alcohol use: Yes Comment: occ alcohol, socially Drug use: Never Sexual activity: Not on file Lifestyle Physical activity Days per week: Not on file Minutes per session: Not on file Stress: Not on file Relationships Social connections Talks on phone: Not on file Gets together: Not on file Attends congregation service: Not on file Active member of club or organization: Not on file Attends meetings of clubs or organizations: Not on file Relationship status: Not on file Other Topics Concern Not on file Social History Narrative Not on file Family History Problem Relation Age of Onset Cancer Mother endometrial Hypertension Mother Hypertension Father Patient Active Problem List Diagnosis Fall Multiple closed fractures of ribs of right side Hypertension Abnormal radiograph Morbid obesity (HCC) Allergies: Allergies reviewed Allergies Allergen Reactions Motrin [Ibuprofen] Anaphylaxis Medications: Allergies & medications reviewed Prior to Admission medications Medication Sig Start Date End Date Taking? Authorizing Provider gabapentin (NEURONTIN) 300 MG capsule Take 1 (one) capsule (300 mg total) by mouth every 8 (eight) hours (Days supply per fill: 5) . 09/14/19 Yes Susannah Mercer CNP hydroCHLOROthiazide (MICROZIDE) 12.5 mg capsule Take 12.5 mg by mouth daily . Yes Historical Provider, oxyCODONE (ROXICODONE) 5 MG immediate release tablet Take 1 (one) tablet (5 mg total) by mouth every 6 (six) hours as needed for pain (Days supply per fill: 5) . 09/14/19 Yes Susannah Mercer CNP polyethylene glycol (MIRALAX) 17 gram powder Take 17 (seventeen) g by mouth daily Hold for loose stools . 09/14/19 10/14/19 Yes Susannah Mercer CNP methocarbamol (ROBAXIN) 500 MG tablet Take 1 (one) tablet (500 mg total) by mouth 3 (three) times aday as needed for muscle spasms . Patient not taking: Reported on 09/24/2019 . 09/14/19 Susannah Mercer CNP Subjective: Review of systems reviewed General: Negative Neuro: Negative HEENT: Negative CV: Negative Pulm: Negative GI: Negative : Negative Spine: Negative MSK: Negative Skin: Negative Objective: Current vital signs: BP 134/78 (BP Location: Left arm) Pulse 84 Temp 97.7 F (36.5 C) Resp 16 Ht 5' 10 Wt (!) 181 kg (399 lb) SpO2 94% BMI 57.25 kg/m General: Alert, cooperative, no distress, appears stated age Neuro: A&Ox3, no focal deficits, PERRL Head: Normocephalic, face is symmetrical Eyes: Non-icteric, EOMI ENT: Moist mucous membranes, trachea midline Chest: Chest with symmetrical expansion & non tender, no palpable crepitus CV: +2 palpable pulses, regular rate and rhythm Pulm: Lungs CTA & equal bilaterally, no wheezes/rhonchi/crackles, no distress GI: Abd soft, non-tender, non-distended, no peritoneal signs MSK: No obvious deformities, MOEx4 with equal & 5/5 strength, neurvascular intact, gait is steady Skin: Skin warm, dry and grossly intact, no obvious rashes or lesions noted Wound: Right chest wall incision site with grace intact, no dehiscence noted, minimal serous seepage from inferior aspect of wound. Diagnostic Imaging: Radiology imaging was ordered today. CXR with Right lower lobe consolidation that appears improved since last CXR prior to discharge from hospital. Procedures: Bozman removed from right chest wall incision site Prescriptions provided today: No Work/School note provided today: No A total of 20 minutes were spent providing direct patient care. I have reviewed the provider's instructions with the patient, answering all questions to his satisfaction. Pt verbalized their understanding of information provided today. Advised to call the Trauma Clinic directly or go to the ER immediately for reevaluation if condition worsens such as increased pain, chest pain, shortness of breath, palpitations, severe headache, numbness, tingling, weakness, vomiting, abdominal pain, severe diarrhea or constipation, or any other c oncerns. 09/24/2019 Froy Roy PA-C 11:17 AM documented in this encounter Assessments Diagnosis Closed fracture of multiple ribs with routine healing, unspecified laterality, subsequent encounter Closed fracture of multiple ribs of right side with routine healing, subsequent encounter Abnormal radiograph Morbid obesity (HCC) Morbid obesity Fall Unspecified fall Multiple closed fractures of ribs of right side Hypertension Unspecified essential hypertension Diagnosis Contusion of left scapula, initial encounter Diagnosis Contusion of right scapula, initial encounter Diagnosis Gastroesophageal reflux disease with esophagitis without hemorrhage Gastric polyp Benign neoplasm of stomach Morbid obesity with BMI of 60.0-69.9, adult (HCC) Chronic superficial gastritis without bleeding Atrophic gastritis without mention of hemorrhage Diagnosis Closed fracture of multiple ribs with routine healing, unspecified laterality, subsequent encounter Closed fracture of multiple ribs of right side with routine healing, subsequent encounter Advance Directives No Advanced Directives Records FoundDocuments on File Type Date Recorded Patient Smokehouse Operator Expl anation Advance Directives and Livin g Will 09/07/2019 3:34 PM Latest Code Status on File Code Status Date Activated Date Inactivated Comments Full Code 09/07/2019 4:54 PM Documents on File Type Date Recorded Patient Smokehouse Operator Expl anation Advance Directives and Livin g Will 09/07/2019 3:34 PM Advance Directives and Livin g Will 10/23/2019 12:25 PM Documents on File Type Date Recorded Patient Smokehouse Operator Expl anation Advance Directives and Living Will Power of Mixing Plant Operator Documents on File Type Date Recorded Patient Smokehouse Operator Expl anation ACP-Advance Directive ACP-Power of Mixing Plant Operator Latest Code Status on File Code Status Date Activated Date Inactivated Comments Full Code 07/26/2020 7:41 AM Latest Code Status on File Code Status Date Activated Date Inactivated Comments Full Code 07/26/2020 7:41 AM 07/26/2020 11:28 AM Documents on File Type Date Recorded Patient Smokehouse Operator Expl anation Advance Directives and Livin g Will 09/07/2019 3:34 PM Advance Directives and Livin g Will 09/24/2019 10:09 AM Latest Code Status on File Code Status Date Activated Date Inactivated Comments Full Code 09/07/2019 4:54 PM Summary Purpose Family History No Family History Records FoundNo Family History Records FoundNo Family History Records FoundNo Family History Records FoundNo Family History Records FoundNo Family History Records FoundNo Family History Records Found Instructions * Patient Instructions* Froy Roy PA-C - 09/24/2019 10:30 AM EST Learning About Using an Incentive Spirometer What is an incentive spirometer? An incentive spirometer is a handheld device that exercises your lungs and measures how much air you can breathe in. It tells you and your doctor how well your lungs are working. The spirometer can help you practice taking deep breaths. Deep breaths can help open your airways and prevent fluid or mucus from building up in your lungs, and make it easier for you to breathe. Using the device can help prevent serious lung infections like pneumonia, improve your breathing after you've had pneumonia or surgery, and keep your airways open and lungs active if you can't get out of bed. How do you use an incentive spirometer? When you use an incentive spirometer, you breathe in air through a tube that is connected to a large air column containing a piston or ball. As you breathe in, the piston or ball inside the column moves up. The height of the piston or ball shows how much air you breathed in. You may feel lightheaded when you breathe in deeply for this exercise. If you feel dizzy or feel like you're going to pass out, stop the exercise and rest. Each time you do this exercise, keep track of your progress by writing down how high the piston or ball moves up the column. 1. Move the slider on the outside of the large column to the level that you want to reach or that your doctor recommended. 2. Sit or stand up straight, and hold the spirometer in front of you. Be sure to keep it level. 3. To start, breathe out normally. Then close your lips tightly around the mouthpiece. Make sure that you don't block the mouthpiece with your tongue. 4. Take a slow, deep breath. Breathe in as deeply as you can. As you breathe in, the piston or ballinside the large column will move up. Try to move the piston or ball as high up as you can or to the level your doctor recommended. When you can't breathe in anymore, hold your breath for 2 to 5 seconds. 5. Relax, take the mouthpiece out of your mouth, and breathe out normally. 6. Repeat steps 1 through 5 as many times as your doctor tells you to. 7. After you've taken the recommended number of breaths, try to cough a few times. This will help loosen any mucus that has built up in your lungs. It will make it easier for you to breathe. If you just had surgery on your belly or chest, hold a pillow over your cut (incision) when you cough. Follow-up care is a hernandez part of your treatment and safety. Be sure to make and go to all appointments, and call your doctor if you are having problems. It's also a good idea to know your test resultsand keep a list of the medicines you take. Where can you learn more? Log into your personal health record on https://[employer] and enter B979 in the Education box to learn more about Learning About Using an Incentive Spirometer. Current as of: March 15, 2019 Content Version: 12.3 8693-2579 [employer]. Care instructions adapted under license by your healthcare professional. If you have questions about a medical condition or this instruction, always ask your healthcare professional. [employer] disclaims any warranty or liability for your use of this information. Broken Rib: Care Instructions Your Care Instructions A broken rib is a crack or break in one of the bones of the rib cage. Breathing can be very painfulbecause the muscles used for breathing pull on the rib. In most cases, a broken rib will heal on its own. You can take pain medicine while the rib mends. Pain relief allows you to take deep breaths. In the past, doctors recommended taping or wrapping broken ribs. This is no longer done because taping makes it hard for you to take deep breaths. Taking deep breaths may help prevent pneumonia or a partial collapse of a lung. Your rib will heal in about 6 weeks. You heal best when you take good care of yourself. Eat a variety of healthy foods, and don't smoke. Follow-up care is a hernandez part of your treatment and safety. Be sure to make and go to all appointments, and call your doctor if you are having problems. It's also a good idea to know your test resultsand keep a list of the medicines you take. How can you care for yourself at home? Be safe with medicines. Read and follow all instructions on the label. ? If the doctor gave you a prescription medicine for pain, take it as prescribed. ? If you are not taking a prescription pain medicine, ask your doctor if you can take an [id number]-irsvlni medicine. Even if it hurts, try to cough or take the deepest breath you can at least once every hour. This will get air deeply into your lungs. This may reduce your chance of getting pneumonia or a partial collapse of a lung. Hold a pillow against your chest to make this less painful. Put ice or a cold pack on the area for 10 to 20 minutes at a time. Put a thin cloth between the iceand your skin. When should you call for help? Call 911 anytime you think you may need emergency care. For example, call if: You have severe trouble breathing. Call your doctor now or seek immediate medical care if: You have some trouble breathing. You have a fever. You have a new or worse cough. Watch closely for changes in your health, and be sure to contact your doctor if: You have pain even after taking your medicine. You do not get better as expected. Where can you learn more? Log into your personal health record on [email or web address] and enter M135 in the Education box to learn more about Broken Rib: Care Instructions. Current as of: April 01, 2019 Content Version: 12.3 [employer]. Care instructions adapted under license by your healthcare professional. If you have questions about a medical condition or this instruction, always ask your healthcare professional. [employer] disclaims any warranty or liability for your use of this information. Wound Check: Care Instructions Your Care Instructions People have wounds that need care for many reasons. You may have a cut that needs care after surgery. You may have a cut or puncture wound from an accident. Or you may have a wound because of a condition like diabetes. Whatever the cause of your wound, there are things you can do to care for it at home. Your doctor may also want you to come back for a wound check. The wound check lets the doctor know how your wound is healing and if you need more treatment. Follow-up care is a hernandez part of your treatment and safety. Be sure to make and go to all appointments, and call your doctor if you are having problems. It's also a good idea to know your test resultsand keep a list of the medicines you take. How can you care for yourself at home? If your doctor told you how to care for your wound, follow your doctor's instructions. If you did not get instructions, follow this general advice: ? You may cover the wound with a thin layer of petroleum jelly, such as Vaseline, and a nonstick bandage. ? Apply more petroleum jelly and replace the bandage as needed. Keep the wound dry for the first 24 to 48 hours. After this, you can shower if your doctor okays it. Pat the wound dry. Be safe with medicines. Read and follow all instructions on the label. ? If the doctor gave you a prescription medicine for pain, take it as prescribed. ? If you are not taking a prescription pain medicine, ask your doctor if you can take an ptiz-ieh-crucavc medicine. If your doctor prescribed antibiotics, take them as directed. Do not stop taking them just because you feel better. You need to take the full course of antibiotics. If you have stitches, do not remove them on your own. Your doctor will tell you when to come back to have them removed. If you have Steri-Strips, leave them on until they fall off. If possible, prop up the injured area on a pillow anytime you sit or lie down during the next 3 days. Try to keep it above the level of your heart. This will help reduce swelling. When should you call for help? Call your doctor now or seek immediate medical care if: You have new pain, or the pain gets worse. The skin near the wound is cold or pale or changes color. You have tingling, weakness, or numbness near the wound. The wound starts to bleed, and blood soaks through the bandage. Oozing small amounts of blood is normal. You have symptoms of infection, such as: ? Increased pain, swelling, warmth, or redness. ? Red streaks leading from the wound. ? Pus draining from the wound. ? A fever. Watch closely for changes in your health, and be sure to contact your doctor if: You do not get better as expected. Where can you learn more? Log into your personal health record on https://[employer] and enter P342 in the Education box to learn more about Wound Check: Care Instructions. Current as of: April 01, 2019 Content Version: 12.3 [id number] [employer]. Care instructions adapted under license by your healthcare professional. If you have questions about a medical condition or this instruction, always ask your healthcare professional. [employer] disclaims any warranty or liability for your use of this information. TRAUMA FOLLOW-UP AND HOME CARE INSTRUCTIONS ACTIVITY AND SAFE PAIN MEDICATION USE -Do not drive while taking pain medicine -May take Tylenol and Ibuprofen as needed -Use prescription pain medications with caution as they may cause over sedation if taken concurrently -Activity as tolerated unless instructed otherwise. WOUND CARE -Keep your wounds dry and clean. Wash all wounds with soap and water and pat it dry. -You can shower but do not take a bath, swim or get in a hot tub until all your wounds are completely healed. When showering, cover your incision with plastic wrap. -If stitches/grace are present, they will be removed at your follow up appointment. Some sutures are dissolvable and will disappear on their own. -If small paper-like strips (called steri-strips) are on your incision, do not remove them. They will either fall off or will be removed by your surgeon at your follow-up visit. -If you had a chest tube, leave the chest tube dressing in place and do not take a shower for 48 hours. Then change the dressing each day. CALL YOUR DOCTOR IF YOU NOTICE: -Signs of infection: redness, swelling, odor or drainage from wounds, fever above 101 F. -Sudden, severe pain or pain not relieved by medication. -Calf pain, redness or swelling. -Loss or appetite, nausea or vomiting. -You have any other questions or concerns. Please see your primary care provider for a follow-up exam and update on your recent admission. If you do not have a primary care physician, make an appointment with the trauma clinic. Hours are: Saturday-Saturday 8am-4pm . For any other questions, problems, or NON-NARCOTIC refills such as Flexeril, Motrin, etc., please call . Leave your name, phone number, and a brief message. You will be contacted between the hours of 8am-4pm 7 days a week. All NARCOTIC refills will require a clinic appointment. If it is an Emergency, call 911 or go to the nearest Emergency room. TRAUMA CLINIC FOLLOW-UP To make or cancel an appointment, call . The Trauma Clinic is located at the [facility], [address] [place] [facility]. documented in this encounter Medications Administered Section Inactive Administered Medications - up to 3 most recent administrations Medication Order MAR Action Action Date Dose Rate Site tropicamide 1 % 1 Drop (MYDRIACYL) 1 Drop, BOTH EYES, ONCE, 1 dose, On Sat12/31/22 at 1000, FOR THE EYE Given 12/31/2022 10:00 AM EDT 1 Drop Additional Source Comments Reason for Visit (unrecogniz ed section and content) Status Reason Specialty Diagnoses / Procedures Referre d By Contact Referred To Contact Diagnoses Closed fracture of multiple ribs with routine healing, unspecified laterality, subsequent encounter Closed fracture of multiple ribs Fall, rib fractures Status Reason Specialty Diagnoses / Procedures Referre d By Contact Referred To Contact Closed Radiology Diagnoses Contusion of left scapula, initial encounter Procedures MR Shoulder Left Without Contrast Rowan Jackson PA-C [address] [facility] [address] [place], [place] [id number] Status Reason Specialty Diagnoses / Procedures Referre d By Contact Referred To Contact Closed Radiology Diagnoses Contusion of right scapula, initial encounter Procedures MR Shoulder Right Without Contrast Rowan Jackson PA-C [address] [facility] [address] [place] [address] Reason Comments Fall Rib Injury fx with plating Chest Injury chest tube Suture / Staple Removal Reason Comments Yearly Exam Reason Onset Date Comments Appointment Request 01/07/2023 Start surgic al program again Reason Comments Weight Loss Update Orders Specialty Diagnoses / Procedures Referred By Jesse t Referred To Contact Bariatric Surgery / Weight Management Diagnoses Morbid (severe) obesity due to excess calories (HCC) Procedures [employer], [facility] [address] [place] [id number] [facility] [address] [address] [address] [place] [address] Referral ID Status Reason Start Date Expiration Date V isits Requested Visits Authorized [id number] Pending Review 01/07/2023 01/07/2024 1 1 Phoenix Chris MD - 09/08/2019 9:26 AM Franci Gutiérrez PA-C - 09/07/2019 3:58 PM EST H&P Notes (unrecognized sect ion and content) The H&P has been reviewed and the patient has been examined. I concur with the findings of the H&P. There are no significant changes. It is appropriate to proceed with the planned procedure. Trauma Service H&P Note Demographic/Patient Information: Patient Name: Solomon Zamora Age/Sex: 44 y.o., male : 1975 Date of evaluation: 09/07/2019 Code Status: No Order Impression/Plan: Trauma Attending Dr. Dougherty was notified at 1620 - Agreed with plan of care. Trauma: Plan to admit to Trauma F/U with trauma imaging & laboratory studies Consults: Pending - based on imaging Continuous tele & pulse ox Pain/nausea control NPO DVT prophylaxis: Pending - based on imaging Cervical Spine Evaluation: C-spine is not tender with palpation Neuro deficits: no C Spine Imaging: Negative for injury. ([facility] CT C-spine) C Spine Cleared per NEXUS criteria. Fall Assessment & Plan Mechanical fall (slipped on ice) from deer/tree stand (4-6 feet high) onto anterior abdomen. No head strike, no LOC, no AC/AP. - On exam, GCS 15. No focal neurological deficits. HDS. - Trauma labs pending - [facility] imaging: CT H, Cs, CAP, CXR - [facility] CT C-spine negative for acute injury; C-spine cleared - [facility]: CXR - EKG NSR - C-spine cleared - Admit to STICU - Pain/nausea control - PT/OT when able - Dispo pending Multiple closed fractures of ribs of right side Assessment & Plan [facility] CT CAP with mildly displaced R lateral 3rd-6th rib fractures and nondisplaced 7th-8th rib fractures. Tiny R pneumothorax and trace R pleural effusion noted. - On exam, R chest wall is tender to palpation. Patient with bilateral breath sounds, SPO2 94% on 3L NC. - AM CXR (09/08) - Cardiac monitoring - O2 PRN for O2 sat <92% - Aggressive pulmonary hygiene/IS/Acapella - Multimodal pain control - PT/OT when able Hypertension Assessment & Plan Per history. - Resume home meds - Cardiac montoring Chief Complaint: Trauma Trauma Information: Trauma Category: Consult Mechanism of Injury: Fall Mode of Arrival/Immobility Devices: EMS Loss of consciousness?: No Use of Anticoagulant/Antiplatelet Medication: No Transfer from outside hospital/facility: yes, [place] Did pt have OSH imaging (If yes, list all OSH imaging): yes OSH imaging reviewed with in-house Radiology: no Did OSH imaging include incidental findings (If yes, please list): yes (1) 7 mm subpleural nodule in the right middle lobe, adjacent to the major fissure (2) Second, 5 mm subpleural nodule in the right middle lobe (3) Fatty infiltration of liver (4) 1.8 cm L renal cyst HCG obtained: no History of Present Illness: Mr. Solomon Zamora is a 44 y.o. male with a history of HTN that presented today as a trauma s/p fall. Patient reportedly slipped on ice and fell off of a deer/tree stand, from a heigh of 4-6 feet. He states I did a belly flop , landing on his anterior abdomen. He denies head strike or LOC. No AC/AP. Patient was initially evaluated at an [facility] ([place]) where imaging demonstrated R lateral 3rd-8th rib fractures with a small R PTX and trace R pleural effusion. He was transferred to [facility] for further evaluation. History: Past Medical, Surgical, Family, and Social History Reviewed. Past Medical History: Diagnosis Date Hypertension Past Surgical History: Procedure Laterality Date FOOT SURGERY KNEE SURGERY TONSILLECTOMY Social History Socioeconomic History Marital status: Single Spouse name: Not on file Number of children: Not on file Years of education: Not on file Highest education level: Not on file Occupational History Not on file Social Needs Financial resource strain: Not on file Food insecurity Worry: Not on file Inability: Not on file Transportation needs Medical: Not on file Non-medical: Not on file Tobacco Use Smoking status: Never Smoker Smokeless tobacco: Current User Types: Chew Substance and Sexual Activity Alcohol use: Not Currently Drug use: Never Sexual activity: Not on file Lifestyle Physical activity Days per week: Not on file Minutes per session: Not on file Stress: Not on file Relationships Social connections Talks on phone: Not on file Gets together: Not on file Attends congregation service: Not on file Active member of club or organization: Not on file Attends meetings of clubs or organizations: Not on file Relationship status: Not on file Other Topics Concern Not on file Social History Narrative Not on file History reviewed. No pertinent family history. Allergies: Reviewed Allergies Allergen Reactions Motrin [Ibuprofen] Anaphylaxis Medications: Reviewed Prior to Admission medications Not on File Subjective: 10 systems reviewed, please see HPI for pertinent details. All were negative except outlined below or in HPI. Patient denies SORENSON, neck pain, back pain, abdominal pain, nausea, vomiting, paresthesias, or weakness. General: Negative Neuro: Negative HEENT: Negative CV: Negative Pulm: Mild SOB secondary to pain with inspiration. GI: Negative Pelvis: Negative : Negative Spine: Negative MSK: R chest wall pain. Skin: Negative Objective: Recent vital signs reviewed Current Vital Signs: BP (!) 147/80 (BP Location: Right arm, Patient Position: Lying) Pulse 77 Temp 98.9 F (37.2 C) (Oral) Resp (!) 20 Ht 5' 10 Wt (!) 181.4 kg (400 lb) SpO2 94% BMI 57.39 kg/m General: No acute distress Neuro: GCS 15, (E4, V5, M6),no focal neurologic deficits Head: Normocephalic, face is symmetrical & facial bones are nontender Eyes: PERRL & EOM's intact, gross vision intact ENT: Nares clear Chest: Symmetrical expansion, chest wall is tender to the R side, no palpable crepitus CV: S1 & S2 noted, no edema, 2+ DP/PT pulses, HDS Pulm: Lungs CTA & equal bilaterally, no distress, on 3 liters/min via nasal cannula GI: Abd obese, soft, nontender, no peritoneal signs Pelvis: Pelvis is stable & nontender Spine: No c-collar , C-spine is nontender, T-spine is nontender, L/S-spine are nontender, no step-offs or deformities, no neuro deficits noted Ext/MSK: Extremities are non-tender, no obvious deformities, no joint edema, MOEx4, 5/5 strength with hand sewer builder and foot dorsi/plantar flexion bilaterally, sensation intact, neurovascular intact Skin: Skin warm, dry and grossly intact, no obvious rashes or lesions noted Laboratory Studies: Laboratory studies ordered No results found for this or any previous visit. Diagnostic Imaging: Diagnostic imaging ordered XR Chest 1 View (Results Pending) Procedures: None 09/07/2019 Franci Mccartney PA-C 4:49 PM Associated attestation - Ibrahima Dougherty MD - 09/08/2019 1:13 AM EST Pt discussed with the trauma team at the time of evaluation. Plan as below.documented in this encounter Lou Croft, PT - 09/09/2019 10:21 AM Janett Olmstead OT - 09/09/2019 10:19 AM Alex Lacy RN - 09/08/2019 10:10 AM Bryce Garcia MD - 09/08/2019 1:34 AM EST Consult Notes (unrecognized section and content) Physical Therapy PHYSICAL THERAPY EVALUATION NOTE Skilled Therapy Needs After Discharge Anticipate Resolution of Current Assessment Limitations Including: Mechanical Barriers, Pain Are Skilled Therapy Services Needed After Discharge: Yes Intensity of Skilled Therapy: 2-3 days per week Anticipated Duration of Skilled Therapy: Duration 7 - 10 days DME Recommendation: None Outcomes Measures Prior Function - Basic Mobility Raw Score: 24 Points Prior Function - Basic Mobility % Impaired: 0% functionally impaired AM-PAC - Basic Mobility Raw Score: 18 Points AM-PAC - Basic Mobility % Impaired: 40.47% functionally impaired Physical Therapy Vestibular Screen performed. Patient scored 0 of 8 on 4 item vestibular screening tool Modified Sidelying test: Unable to perform Near Point Convergence Testing: WFL Further assessment from Vestibular PT not required Physical Therapy Assessment History: The following factors influence the patient's participation in the PT plan of care: Personal factors: body habitus Environmental factors: steps to enter home and lives alone The following co-morbidities (from this admission or prior) influence the patient's participation in this plan of care: Pt with hx of HTN and morbid obesity, presenting s/p fall with multiple closed fractures of ribs. Number of History elements affecting this patient's PT plan of care: 3 or more Examination of Body Systems: The patient presents with impairments of pain, functional endurance, multiple rib fractures s/p plating, balance, activity tolerance, O2 saturation regulation with activity. These impairments result in limitations of gait, functional transfers, stair-climbing, safety, safety awareness, activity tolerance and insight. These impairments result in restrictions of household mobility, community mobility, work-related activities and leisure activities. Number of Body Systems elements affecting this patient's PT plan of care: 4 or more Clinical Presentation: The patient's clinical presentation for this PT evaluation is unstable as evidenced by current PT documentation. Activity Tolerance Activity Tolerance: Tolerates 30 min acitivty with multiple rests Therapy Precautions Orthotic Devices: No Weight Bearing Status: WFL General Rehab Precautions: Fall risk(R rib protection, R CT to suction) Balance Sitting Balance - Static: Supports self independantly with both upper extremities Standing Balance - Static: Stands without support for more than 30 seconds Standing Balance - Dynamic: (SBA) Bed Mobility Rolling: Min Supine to Sit: Min Transfers Sit to Stand: Contact guard, Stand by assistance Candy Maker: 1 person, Gait belt Gait/Locomotion Gait Assistance: Stand by assistance Assistive Device: None Distance: 10 Feet(x 3) Pattern: R decreased step length, L decreased step length, Wide base of support, Decreased trunk rotation Home Living Type of Home: House Home Layout: One level, Stairs to enter without rails(2 MARCIO) Bathroom Shower/Tub: Walk-in shower Bathroom Toilet: Standard Bathroom Equipment: Shower chair Home Equipment: Cane, Roof Bolter, Sock aid, Long-handled shoehorn Additional Comments: Reports ability to have his dad provide assist upon d/c if necessary Prior Level of Function Level of [place]: Independent with ADLs and functional transfers, Independent with homemaking with ambulation Lives With: Alone Receives Help From: (Pt's mom lives 1/4 a mile away) ADL Assistance: Independent Homemaking Assistance: Independent 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 Main OR; Service: General Surgery TONSILLECTOMY PHYSICAL THERAPY TREATMENT NOTE Total Treatment Time (Total Session Time): 55 Minutes Timed Code Treatment Minutes: 10 Minutes Gait Training Skilled Intervention: With practice, pt improves to SBA. Min cues required for breathing during mobility. Therapeutic Activities Bed Mobility Skilled Intervention: Educated pt re: precautions for rib fractures and their application to functional mobility. Step by step cues required to sequence log roll. Min A required to complete log roll, however, once in sidelying, pt able to push to sitting. Cues required throughout to avoid holding breath. Pt requiring 4L O2 for mobility this date. Transfers Skilled Intervention: Cues required for improved breathing technique during transfers sit<>stand. Pt demonstrates understanding, progressing to SBA with practice. For complete objective data, detailed plan of care and patient education refer to: PT EVALUATION flow sheet, PT TREATMENT flow sheet, patient Plan of Care, Plan of Care progress note, and Patient Education. This note stands as the current Discharge Summary upon patient discharge from the hospital or completion of Physical Therapy Plan Occupational Therapy OCCUPATIONAL THERAPY EVALUATION NOTE Pt reports baseline BUE shoulder pain, however, endorses acute deficits. Initially unable to perform RUE AROM shoulder flex, however, able to perform static holds at end range following PROM, progressing to AAROM, then able to perform full shoulder flex RUE. (IR, ER, sh abd WFL) Unable to perform AROM of shoulder flex LUE (difficulty c/ IR above head as well), deferring further testing at this point given reports of I can't Continue to assess; educated on importance of f/u if symptoms persist; verbalizes understanding. Skilled Therapy Needs After Discharge Anticipate Resolution of Current Assessment Limitations Including: Pain, Mechanical Barriers Are Skilled Therapy Services Needed After Discharge: Yes Intensity of Skilled Therapy: 2-3 days per week Anticipated Duration of Skilled Therapy: Duration 10 - 30 days DME Recommendation: (owns appropriate equipment per pt) Rehab Potential: Good Pt denies hitting head, LOC; MoCA/SCAT not warranted. Denies room spinning sensations. Outcomes Measures Prior Function Daily Activity: Raw Score: 24 Prior Function Daily Activity % Impaired: 0% functionally impaired AM-PAC Daily Activity: Raw Score: 15 AM-PAC Daily Activity % Impaired: 56.46% functionally impaired Occupational Therapy Assessment The patient presents with musculoskeletal, neurological and cardiopulmonary impairment(s) in generalized debility trunk spine bilateral upper extremity which create performance deficits including strength, range of motion, coordination, activity tolerance, respiratory capacity and pain, initiation, command following, problem solving, attention, perception, insight and safety, and pain intolerance. These performance impairments limit participation in grooming, UE dressing, LE dressing, bathing, toileting, home management, meal preparation, job duties, hobbies and functional mobility in the chosen occupational roles of premorbid level individual, employee, family member and community member. The patient's co morbidities do significantly affect patient performance in the above activities and roles. The patient's home setup is a snapper on and family/caregiver support is a snapper on for return to prior level of function. The patient's compliance is a snapper on, awareness of own capacity and performance is a barrier and awareness of own capacity and performance is a snapper on to return to prior level of function. During the assessment, significant modification of task was required and multiple treatment options were identified in the plan of care. This consultation required extensive review of the medical and therapy history. Activity Tolerance Activity Tolerance: Tolerates 30 min acitivty with multiple rests(O2 saturation on 2L SpO2 ~88-92% (briefly to 79% s/ SpO2) Therapy Precautions Orthotic Devices: No Weight Bearing Status: WFL General Rehab Precautions: Fall risk(R rib protection, R CT to suction) Cognition Overall Cognitive Status: (mild impairments) Arousal/Alertness: Appropriate responses to stimuli Orientation Level: Oriented X4 Executive functioning: Min impairment, Insight, Planning / Organizing Safety Judgment: Decreased awareness of need for safety Problem Solving: Assistance required to generate solutions Attention: Impaired, Sustained attention, Easily distracted Social Interaction: Cooperative, Appropriate(mildly flat affect) Comments: Follows simple commands c/ increased time/rest breaks allotted. ADL/IADL Grooming : Stand by assistance LE Bathing : (Ed on use of DME/safety in seated) UE Dressing: Max LE Dressing: Dependent Toileting : Mod(assist for clean-up of urine) Bed Mobility Rolling: Contact guard Supine to Sit: Min Functional Transfers Sit to Stand: Contact guard Bed to Chair Transfers: Stand by assist Toilet Transfers: Stand by assist Home Living Type of Home: House Home Layout: One level, Stairs to enter without rails(2 MARCIO) Bathroom Shower/Tub: Walk-in shower Bathroom Toilet: Standard Bathroom Equipment: Shower chair Home Equipment: Cane, Roof Bolter, Sock aid, Long-handled shoehorn Additional Comments: Reports ability to have his dad provide assist upon d/c if necessary Prior Level of Function Level of [place]: Independent with ADLs and functional transfers, Independent with homemaking with ambulation Lives With: Alone Receives Help From: (Pt's mom lives 1/4 a mile away) ADL Assistance: Independent Homemaking Assistance: Independent 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 Main OR; Service: General Surgery TONSILLECTOMY OCCUPATIONAL THERAPY TREATMENT NOTE Total Treatment Time (Total Session Time): 46 Minutes Timed Code Treatment Minutes: 16 Minutes Cognitive Skills Development Skilled Intervention: Ed on general compensatory strategies and home safety/fall prevention. Self-Care / Home Management ADL/IADL Skilled Intervention: Ed provided regarding safety/compensatory strategies for rib protection ie dressing of affected extremity initially (B shoulder ROM deficits impeding), unable to achieve figure four technique at baseline following ed- verbal ed on use of AE for safety and independent completion of LB dressing. Pt verbalizes owning ADL kit and verbalizes udnerstanding of proper use. Ed on general EC and safety of tasks in seated vs stand given level of pain/distractibility; verbalizes understanding. Therapeutic Activities Bed Mobility Skilled Intervention: V/c for PLB throughout all aspects of activity Functional Transfers Skilled Intervention: Pt demonstrates abiliyt to perform fxl mobility in room c/ SBA, cues for safe pacing/positional changes to improve safety awareness, fatigue noted folloiwng in room mobility c/ 1 ~5 min seated rest break. Ed on benefits of continued movement in hospital setting encouraging household distances c/ staff assist. For complete objective data, detailed plan of care and patient education refer to: OT EVALUATION flow sheet, OT TREATMENT flow sheet, patient Plan of Care, Plan of Care progress note, and Patient Education. This note stands as the current Discharge Summary upon patient discharge from the hospital or completion of Occupational Therapy Plan of Care. Associated Order(s): IP CONSULT TO CARE MANAGEMENT COMPLEX DISCHARGE Date: 09/08/2019 Time: 10:11 AM Patient Name: Solomon Zamora Date of : 1975 Sex: Male Consulted for discharge planning. Chart reviewed. Pt has insurance coverage for prescription medications. Dr Antolin Barron is PCP of record. Pt is currently in OR for rib plating. PT/OT pending. [facility] will follow. Discharge Plan Shared UM/CC and RN Source of Information: Chart Living Arrangements: Alone Support Systems: Family members, Friends/neighbors Functional Status: Independent Type of Residence: Private residence Prior to Admission Home Care Services: No Insurance Coverage for Prescriptions: Yes Anticipated Discharge Plan Anticipated HME: Undetermined Anticipated Home Care Needs: Undetermined Anticipated Facility Type: Undetermined Potential for Readmission Potential for Readmission: No Discharge Readiness Expected Discharge Date: 09/10/19 Associated Order(s): IP CONSULT TO HOSPITALIST Bryce Arevalo MD [facility] Hospitalists Medical Consultation Patient Name:Solomon Zamora MR #:[id number] :1975 Admit Date: [id number] Physicians: Antolin Barron MD (Family); David Leyva DO (Referring) Perpetual Assessment: Solomon Zamora is a 44 y.o. male who presented from [facility] on 09/07/2019 after a fall, [facility] for medical management ASSESSMENT AND PLAN Fall/trauma/right rib fractures -Mechanical fall from a height of 4 to 5 feet -Outside CT scan with mild displaced right lateral 3-6 ribs and nondisplaced 7-8 rib fractures, tiny right pneumothorax -Admitted to trauma service -Pulmonary hygiene -Preop evaluation as below Preoperative evaluation The patient is being evaluated for a moderate risk surgery. The patient has no pre-injury symptoms. The patient's functional capacity is >4 METS. The patient has the following pertinent Revised Cardiac Risk Index Indicators none Based on the above, the patient is at low risk to proceed to surgery. The patient has no signs/symptoms of active ischemic heart disease, significant valvular pathology, heart failure, or arrhythmia. ECG pending. There is no further cardiac testing that should be done as it would not exchange consultant. There is inherent risk with any surgery and this was discussed with the patient. OK to proceed to surgery from my perspective understanding the known risks as above. Hypertension -Continue home hydrochlorothiazide Morbid obesity -encourage diet / exercise DVT ppx -per primary, on lovenox Dispo -per primary Medication reconciliation: Home medications reviewed by myself with patient Thank you for this consult, we will continue to follow HISTORY CC: Medical management, pre-op evaluation HPI: Solomon Zamora is a 44 y.o. male with a history of morbid obesity, hypertension who presents after a fall, admitted to trauma service, [facility] is consulted for medical management. He states he was climbing into a tree stand when he slipped, fell forward onto his abdomen. He currently has right-sided chest pain. Prior to this event he had no chest pain or shortness of breath. He states he could climb a flight of steps 4 times consecutively without any chest pain or shortness of breath. He denies any recent nausea, vomiting, fever, chills, diarrhea, dysuria. He denies any passing out events. He denies any orthopnea. ROS:>>>>>>>>>> The following system(s) were reviewed. Pertinent positive and negative findings are noted in the HPI. [x] Const [x] Eyes [x] ENT [x] Resp [x] CV [x] GI [x] [x] Neuro [x] Musc [x] Skin [x] Psych [x] Endo [x] Allergy [x] Heme/Lymph PMH/PSH/SH/FH: Past Medical History: Diagnosis Date Hypertension Past Surgical History: Procedure Laterality Date FOOT SURGERY KNEE SURGERY TONSILLECTOMY Family History Problem Relation Age of Onset Cancer Mother endometrial Hypertension Mother Hypertension Father Social History Socioeconomic History Marital status: Single Spouse name: Not on file Number of children: Not on file Years of education: Not on file Highest education level: Not on file Occupational History Not on file Social Needs Financial resource strain: Not on file Food insecurity Worry: Not on file Inability: Not on file Transportation needs Medical: Not on file Non-medical: Not on file Tobacco Use Smoking status: Never Smoker Smokeless tobacco: Current User Types: Chew Substance and Sexual Activity Alcohol use: Yes Comment: occ alcohol, socially Drug use: Never Sexual activity: Not on file Lifestyle Physical activity Days per week: Not on file Minutes per session: Not on file Stress: Not on file Relationships Social connections Talks on phone: Not on file Gets together: Not on file Attends congregation service: Not on file Active member of club or organization: Not on file Attends meetings of clubs or organizations: Not on file Relationship status: Not on file Other Topics Concern Not on file Social History Narrative Not on file Allergy Information: I have reviewed the patient's allergies. Motrin [ibuprofen] Home Medications: No current outpatient medications on file as of 09/08/2019. PHYSICAL EXAMINATION << >>>>> Vital Signs: Temp: [97.9 F (36.6 C)-98.9 F (37.2 C)] 97.9 F (36.6 C) Heart Rate: [77-91] 82 Resp: [18-26] 23 BP: (133-163)/(71-85) 146/71 GENERAL: NAD, lying in bed EYES: Conjunctiva and sclera clear, EOMI ENT: Hearing intact. CV: RRR, no murmur. No edema RESP: Clear, no rales, rhonchi, wheezes or increase in respiratory effort, no use of accessory muscles GI: Non-distended, +BS, soft, non-tender. No guarding, masses or rebound MUSC: Normal ROM without deformity SKIN: Warm and dry. No rashes. NEURO: Alert, Ox3. moving all extremities PSYCH: Mood and affect are appropriate. Cooperative. Laboratory and Additional Data Acquired or Reviewed: [x] Laboratory [x] Transcriptions [x] Radiology [] Microbiology [x] Cardiology [] Outside Records [x] Medications [] Family Time Spent: documented in this encounter Joaquim Harrington RN - 09/07/2019 5:03 PM Joaquim Lobo RN - 09/07/2019 4:59 PM Mya Mirza RN - 09/07/2019 4:57 PM Renee Freeman PA-C - 09/07/2019 4:04 PM EST ED Notes (unrecognized secti on and content) Report called to Kenny RN on STICU. All questions answered. ED to transport. Pt provided with incentive spirometer and educated. Pt verbalized understanding. Pt with ready intermediate bed 7503. Rn to transport. ED PROVIDER NOTE [facility] EMERGENCY DEPARTMENT NAME: Solomon Zamora AGE: 44 y.o. : 1975 VISIT DATE: 09/07/2019 CSN: [id number] PCP: Antolin Barron MD Chief Complaint Patient presents with Fall 44-year-old male with history of hypertension, foot surgery, knee surgery tonsillectomy presents to the ED as a trauma transfer. Patient had a mechanical fall today, approximately 5 feet off the ground from a ladder. This was purely a mechanical fall patient fell landing onto his right side. Patient endorses pain in his right rib cage, was seen at outlying facility where he had a CT of his head neck and chest abdomen pelvis. Patient had a normal chest x-ray however CT chest abdomen pelvis showed multiple rib fractures of ribs 3 through 6 with nondisplaced fractures of ribs 7 through 8. Patient has had a very small right-sided pneumothorax. Was medicated with morphine Dilaudid and is still having pain upon arrival, last dose was 3 hours ago. Patient does feel a little bit more short of breath since arriving to the ED. Denies any pain in his abdomen, hips, lower extremities. Denies any numbness tingling to his arms or legs. Denies any difficulty ambulating, back pain. He did not lose consciousness, not on blood thinners. He has no other complaints this time. Past Medical History: Diagnosis Date Hypertension Past Surgical History: Procedure Laterality Date FOOT SURGERY KNEE SURGERY TONSILLECTOMY History reviewed. No pertinent family history. Social History Socioeconomic History Marital status: Single Spouse name: Not on file Number of children: Not on file Years of education: Not on file Highest education level: Not on file Occupational History Not on file Social Needs Financial resource strain: Not on file Food insecurity Worry: Not on file Inability: Not on file Transportation needs Medical: Not on file Non-medical: Not on file Tobacco Use Smoking status: Never Smoker Smokeless tobacco: Current User Types: Chew Substance and Sexual Activity Alcohol use: Not Currently Drug use: Never Sexual activity: Not on file Lifestyle Physical activity Days per week: Not on file Minutes per session: Not on file Stress: Not on file Relationships Social connections Talks on phone: Not on file Gets together: Not on file Attends congregation service: Not on file Active member of club or organization: Not on file Attends meetings of clubs or organizations: Not on file Relationship status: Not on file Other Topics Concern Not on file Social History Narrative Not on file No current outpatient medications on file prior to encounter. Allergies Allergen Reactions Motrin [Ibuprofen] Anaphylaxis Review of Systems Constitutional: Negative for chills and fever. HENT: Negative for congestion and rhinorrhea. Eyes: Negative for visual disturbance. Respiratory: Positive for shortness of breath (Pain with deep inspiration). Cardiovascular: Positive for chest pain (Right-sided after falling on that side). Negative for leg swelling. Gastrointestinal: Negative for abdominal pain, nausea and vomiting. Genitourinary: Negative for difficulty urinating and hematuria. Musculoskeletal: Negative for gait problem. Skin: Negative for color change. Neurological: Negative for dizziness, light-headedness and headaches. Hematological: Does not bruise/bleed easily. Psychiatric/Behavioral: Negative for confusion and decreased concentration. All other systems reviewed and are negative. Patient Vitals for the past 24 hrs: BP Temp Temp src Pulse Resp SpO2 Height Weight 09/07/19 1516 (!) 147/80 98.9 F (37.2 C) Oral 77 (!) 20 94 % 5' 10 (!) 181.4 kg (400 lb) Physical Exam Constitutional: General: He is not in acute distress. Appearance: He is well-developed. He is not diaphoretic. HENT: Head: Normocephalic. Right Ear: External ear normal. Left Ear: External ear normal. Neck: Musculoskeletal: Normal range of motion and neck supple. Cardiovascular: Rate and Rhythm: Normal rate and regular rhythm. Heart sounds: No murmur. No friction rub. Pulmonary: Effort: Pulmonary effort is normal. Breath sounds: No wheezing or rales. Abdominal: Palpations: Abdomen is soft. Tenderness: There is no abdominal tenderness. Musculoskeletal: Normal range of motion. Skin: General: Skin is warm and dry. Neurological: Mental Status: He is alert and oriented to person, place, and time. Psychiatric: Behavior: Behavior normal. Laboratory & Radiographic Imaging (if done): No results found for this visit on 09/07/19. XR Chest 1 View (Results Pending) Procedures MDM Number of Diagnoses or Management Options Closed fracture of multiple ribs with routine healing, unspecified laterality, subsequent encounter: Diagnosis management comments: 44-year-old male arrives as a transfer from [facility] for multiple rib fractures. Patient had a mechanical fall off a ladder, had a noncontrast head and neck CT as well as a CT chest abdomen pelvis which showed fractures of ribs 3 through 8 on the right side with a small pneumothorax. Obtained stat chest x-ray upon arrival to the ED to rule out worsening pneumothorax although clear lung sounds present on exam. He is nontender anywhere else on exam. Patient placed on a cardiac and pulse ox monitor, and still in a significant amount of pain, last received narcotics 3 hours ago, did give him 8 milligrams morphine. Trauma was consulted, saw the patient in the ED. Patient will be admitted to their service. . Clinical Impression: 1. Closed fracture of multiple ribs with routine healing, unspecified laterality, subsequent encounter ED Disposition ED Disposition Condition Comment Hospitalize Phone call required?: No Follow-up Information Follow-up information has not been specified. Contact information for after-discharge care Follow-up information has not been specified. Renee Elizalde PA-C 09/07/19 1614 Transfer Center Note: Call from David Leyva, Contact Role: Referring Provider Entered By: Sue Wong RN Updated By: Sue Wong RN MD states Pt fel from a tree stand and landed on right side of chest. Pt with multiple rib fractures and pulmonary contusion. TC initiated conference call with trauma per protocol. Bed: 87 Expected date: Expected time: Means of arrival: Comments: Lifesupport/ref-alexandra/correa documented in this encounter Plan of [place] - Luis Baeza RN - 09/14/2019 2:08 PM ESTPlan of Care - Pam Salmeron RN - 09/14/2019 12:36 PM ESTQuick Note - Breonna Nicole CNP - 09/12/2019 1:05 PM EST Miscellaneous Notes (unrecog nized section and content) AVS discussed with patient at bedside. Patient denied having any further questions. Patient informed of prescriptions E-prescribed to pharmacy. Patient discharged by wheelchair to private car per [facility]. Personal belongings taken by patients family member. Incidental Findings discussed with patient. Report given with instructions to follow up with Family physician. Questions answered. CT Removal Procedure Note Am CXR reviewed and no pneumothorax noted. No air leak. Discussed with Dr. Chris and agreed with CT removal today. R sided CT removed under valsalva maneuver. Tolerated well without issues. Bulky occlusive vaseline dressing applied. No complications noted. No signs of distress after CT removed. Patient tolerated procedure well. Plan: Repeat CXR in 4hrs post-pull to be timed for 1700. Breonna PINEDA AGACNP-BC [facility] Trauma Services Contact: [employer] [phone] Associated Problem(s): Morbid obesity (HCC) Noted on admission with BMI 57 - Encouraged dietary changes and exercise when able - F/u with PCP at discharge [facility] Utilization Review Notes HISTORY OF PRESENT ILLNESS: 44-year-old male with history of hypertension, foot surgery, knee surgery tonsillectomy presents to the ED as a trauma transfer. Patient had a mechanical fall today, approximately 5 feet off the ground from a ladder. This was purely a mechanical fall patient fell landing onto his right side. Patient endorses pain in his right rib cage, was seen at outlying facility where he had a CT of his head neck and chest abdomen pelvis. Patient had a normal chest x-ray however CT chest abdomen pelvis showed multiple rib fractures of ribs 3 through 6 with nondisplaced fractures of ribs 7 through 8. Patient has had a very small right-sided pneumothorax. Was medicated with morphine Dilaudid and is still having pain upon arrival, last dose was 3 hours ago. Patient does feel a little bit more short of breath since arriving to the ED VITAL SIGNS: Temp: [97.9 F (36.6 C)-98.9 F (37.2 C)] 97.9 F (36.6 C) Heart Rate: [77-91] 82 Resp: [18-26] 23 BP: (133-163)/(71-85) 146/71 EKG: noc WEIGHT: 181.4kg LABS: (Abnormal / Relevant): Wbc 12.98 IMAGING: (Abnormal / Relevant): CHEST RADIOGRAPH 1. 4 mm right apical pneumothorax, likely stable compared to the prior CT but not visualized on the previous chest radiograph. Recommend short-term continued radiographic follow-up. 2. Right rib fractures noted on previous CT are not well visualized radiographically. There is mild right chest wall subcutaneous emphysema. 3. Limited study but no other definite acute process. OPERATIVE REPORT PREOPERATIVE DIAGNOSES 1. Morbid obesity with a BMI of 57. 2. Multiple right-sided rib fractures. 3. Small hemothorax. PROCEDURES PERFORMED 1. Thoracoplasty with rib fixations of ribs 3, 4, 5, 7, and 8. 2. Intercostal nerve blocks of 3, 4, 5, 6, 7, and 8. 3. Complex wound closure 22 cm. 4. Thoracotomy with evacuation of hemothorax. 5. Chest tube placement, 28-Nepalese. ED TX: Iv morphine, lidocaine patch DX/ASSESSMENT / PLAN: Fall Assessment & Plan Mechanical fall (slipped on ice) from deer/tree stand (4-6 feet high) onto anterior abdomen. No head strike, no LOC, no AC/AP. - On exam, GCS 15. No focal neurological deficits. HDS. - AM labs (09/08) reviewed, unremarkable - [facility] imaging: CT H, Cs, CAP, CXR with multiple R rib fractures, otherwise negative - [facility] CT C-spine negative for acute injury; C-spine cleared - [facility]: CXR - EKG NSR - C-spine cleared - Admit to STICU - Pain/nausea control - PT/OT when able - Dispo pending * Multiple closed fractures of ribs of right side Assessment & Plan [facility] CT CAP with mildly displaced R lateral 3rd-6th rib fractures and nondisplaced 7th-8th rib fractures. Tiny R pneumothorax and trace R pleural effusion noted - On exam, R chest wall is tender to palpation. Patient with bilateral breath sounds, SPO2 94% on 3L NC - Plan for rib fixation today (09/08) with Dr. Chris - AM CXR (09/08) with resolution of small R apical PTX, known fractures not seen on CXR - Cardiac monitoring - O2 PRN for O2 sat <92% - Aggressive pulmonary hygiene/IS/Acapella - Multimodal pain control - PT/OT when able Hypertension Assessment & Plan Per history - Resume home meds - Cardiac montoring Abnormal radiograph Assessment & Plan Trauma imaging showed incidental findings including - 7 mm subpleural nodule in the right middle lobe, adjacent to the major fissure. 5 mm subpleural nodule in the right middle lobe - Fatty infiltration of liver - 1.8 cm L renal cyst Will discuss with patient prior to discharge. Follow-up with PCP as an outpatient MEDS / ORDERS: ivf at dextrose 5% - 60ml/hr, trevin tylenol po, iv ancef, ivf lactate at 75ml/hr, iv fentanyl prn, iv dilaudid prn, iv demorol prn, iv zofran prn, serial cxr, bipap continous, duonebs prn, tele, chest tube continous suction DISPO: tbd Unable to see patient as he was in the OR. Will follow up on 09/09. MON MONTIEL [id number] 1975 DATE 09/08/2019 OPERATIVE REPORT SURGEON PHOENIX CHRIS MD AUTHORIZATION MANAGER JOSE RAE MD, RESIDENT PREOPERATIVE DIAGNOSES 1. Morbid obesity with a BMI of 57. 2. Multiple right-sided rib fractures. 3. Small hemothorax. PROCEDURES PERFORMED 1. Thoracoplasty with rib fixations of ribs 3, 4, 5, 7, and 8. 2. Intercostal nerve blocks of 3, 4, 5, 6, 7, and 8. 3. Complex wound closure 22 cm. 4. Thoracotomy with evacuation of hemothorax. 5. Chest tube placement, 28-Nepalese. BLOOD LOSS 100 cc. COMPLICATIONS None. INDICATIONS This is a morbidly obese 44-year-old gentleman who fell from a deer stand, resulting in multiple right-sided rib fractures. His pain is intractable. I discussed rib fixation with him, and he desired to proceed. OPERATIVE COURSE The patient is taken to the operating room. He is orotracheally intubated on his bed and then he is carefully moved over with significant help onto the operating table underneath the castro bag. He is placed in the left lateral decubitus position with appropriate padding, and a castro bag is used to keep him in position. Axillary roll is placed as well, and overhead arm board is used. His right chest is prepped and draped in sterile fashion. Time-out is performed. I went ahead and anesthetized the skin where I intend to make my skin incision with Exparel, infiltrating the entire length of the incision which is going to be 22 cm in length. I go ahead and begin by using a 10 blade to incise the skin and then electrocautery is used to get through the subcutaneous tissue all the way down to the chest wall. It is about 4 inches before I finally reach the chest wall. I identify the serratus anterior musculature. I have to undermine the subcutaneous tissue significantly on both sides to allow me to gain access to the ribs. I go ahead and dissect out the serratus anterior musculature. We then split the muscle fibers of the serratus anterior inferiorly along the serratus to get to the most inferior fracture which is #8. It is identified; it is displaced. We have to reduce it. I create my incisions above the rib around the fracture itself. I then place a 50 mm rib lock plate in place and then this is secured with 4 screws, getting good bicortical bites. I do the same with rib 7, again using a 50 mm plate. Rib 6 is minimally fractured, and there is really no displacement; I leave rib 6 alone. I get up to rib 5 by making another slit in the serratus anterior musculature, identifying the fracture. I reduce it. It is also displaced and then get a 50 mm plate across this break with 4 good bicortical screw bites. Rib 4 is fixed likewise as is rib 3. I now use Exparel to block the intercostal nerves of intercostal spaces 3, 4, 5, 6, 7, and 8. I now make a small thoracotomy incision and evacuate out retained hemothorax, suctioning it out completely. I go ahead and irrigate out the chest with saline, and then I place a 28- Nepalese chest tube and bring out through a separate stab incision in the 7th intercostal space. This is secured with an 0 Prolene suture. I now begin closing the serratus anterior musculature using interrupted 2-0 Vicryl suture in [id number] fashion. The serratus musculature is also anesthetized with Exparel. I now begin my complex wound closure bringing together my subcutaneous flaps. I use #1 Stratafix to bring the deep layers of the fat of Nicole fascia together in a running fashion x2. I then close the subcutaneous tissue above this with 3-0 Vicryl suture in interrupted fashion, and then we close the skin using skin grace. The patient tolerates the procedure well. PHOENIX CHRIS MD D 09/08/2019 14:08 [id number] T 09/08/2019 16:40 KIS/MODL Pt. In too small of a bed pt. Placed in a bariatric bed also placed on bipap Brief Post Operative Note Patient Name: Solomon Zamora : 1975 (44 y.o.) Date of Service: 09/08/2019 CSN: [id number] Procedure(s): THORACOPLASTY WITH RIB FIXATION 3,4,5,7 AND 8, COMPLEX WOUND CLOSURE Pre-Operative Diagnoses: * Rib fractures Post-Operative Diagnoses: * Closed fracture of multiple ribs of right side, initial encounter [S22.41XA] Surgeon(s) and Role: * Phoenix Chris MD - Primary * Jose Rae MD - Resident - Assisting Anesthesiologist: Ta Berger MD PASSENGER FLAGMAN: Bryce Morgan CRNA Rn Endocrinology: Ellen Carvalho RN Rn Endocrinology Relief: Joyce Weber RN Relief Scrub: Joyce Weber RN [facility] Iron Pourer: Shanel Sebastian Operative findings: right ribs 3,4,5,7,8 fractures s/p plate and screw fixation, evacuation of hemothorax, 28 Fr chest tube, intercostal block w/ liposomal bupivacaine, complex wound closure Intra and immediate post-operative complications: none Type of anesthesia used: General Estimated blood loss: 150 mL Estimated urine output: Specimen(s): * No specimens in log * Implant(s): Implant Name Type Inv. Item Serial No. Plum Packer Lot No. LRB No. Used Action 50 mm U Plus Rib Plate [id number] Right 5 Implanted Drain(s): * No LDAs found * Wound(s): * No LDAs found * Jose Rae MD 09/08/2019 1:59 PM OCCUPATIONAL THERAPY VISIT VARIANCE NOTE Attempted to see patient at this time, but unable secondary to: OT Visit Variance: Awaiting Medical Clearance (comment)(in OR). Will follow up as appropriate. PHYSICAL THERAPY VISIT VARIANCE NOTE Attempted to see patient at this time, but unable secondary to: PT Visit Variance: Awaiting Medical Clearance (comment)(Plan for OR today). Will follow up as appropriate. Problem: Pressure Ulcer - Risk of Goal: Absence of pressure ulcer Outcome: Met Problem: Falls, Risk of Goal: Absence of falls Outcome: Met Problem: Pain Goal: Manage chronic pain Outcome: Not Met Goal: Reduced pain sensation Outcome: Not Met Goal: Achievement of comfort function goal Outcome: Not Met Problem: Pain Goal: Manage chronic pain Outcome: Not Met Goal: Reduced pain sensation Outcome: Not Met Goal: Achievement of comfort function goal Outcome: Not Met Problem: Pain Goal: Manage acute pain Outcome: Partially Met Trauma Tertiary Exam Demographic/Patient Information: Patient Name: Solomon Zamora Age/Sex: 44 y.o., male : 1975 Date: 09/08/2019 Code Status: Full Code Impression/Plan: Solomon Zamora is a 44 y.o. male is s/p fall. Tertiary exam: completed & no additional injuries noted Consultants: [facility] Pain & nausea control Diet: no PT/OT: when able DVT prophylaxis: SCDs, Lovenox 40 mg BID [place]: Dispo plan - pending Fall Assessment & Plan Mechanical fall (slipped on ice) from deer/tree stand (4-6 feet high) onto anterior abdomen. No head strike, no LOC, no AC/AP. - On exam, GCS 15. No focal neurological deficits. HDS. - AM labs (09/08) reviewed, unremarkable - [facility] imaging: CT H, Cs, CAP, CXR with multiple R rib fractures, otherwise negative - [facility] CT C-spine negative for acute injury; C-spine cleared - [facility]: CXR - EKG NSR - C-spine cleared - Admit to STICU - Pain/nausea control - PT/OT when able - Dispo pending * Multiple closed fractures of ribs of right side Assessment & Plan [facility] CT CAP with mildly displaced R lateral 3rd-6th rib fractures and nondisplaced 7th-8th rib fractures. Tiny R pneumothorax and trace R pleural effusion noted - On exam, R chest wall is tender to palpation. Patient with bilateral breath sounds, SPO2 94% on 3L NC - Plan for rib fixation today (09/08) with Dr. Chris - AM CXR (09/08) with resolution of small R apical PTX, known fractures not seen on CXR - Cardiac monitoring - O2 PRN for O2 sat <92% - Aggressive pulmonary hygiene/IS/Acapella - Multimodal pain control - PT/OT when able Hypertension Assessment & Plan Per history - Resume home meds - Cardiac montoring Abnormal radiograph Assessment & Plan Trauma imaging showed incidental findings including - 7 mm subpleural nodule in the right middle lobe, adjacent to the major fissure. 5 mm subpleural nodule in the right middle lobe - Fatty infiltration of liver - 1.8 cm L renal cyst Will discuss with patient prior to discharge. Follow-up with PCP as an outpatient. Chief Complaint: Fall, multiple R-sided rib fractures Subjective: Patient denies abdominal pain, nausea, vomiting, paresthesias, or weakness. Denies note of any new injury on tertiary exam. General: Negative Neuro: Negative HEENT: Negative CV: Negative Pulm: Mild SOB secondary to pain while breathing, per patient. GI: Negative Pelvis: Negative : Negative Spine: Negative MSK: 4/10 R-sided chest pain, exacerbated by movement/deep breathing. Skin: Negative Objective: Recent vital signs reviewed Vital signs range: Temp: [97.9 F (36.6 C)-98.9 F (37.2 C)] 98.3 F (36.8 C) Heart Rate: [77-91] 84 Resp: [18-26] 20 BP: (111-163)/(57-85) 111/57 General: No acute distress Neuro: GCS 15, no focal neurological deficits Head: Normocephalic, face is symmetrical & facial bones are nontender Eyes: PERRL & EOM's intact, gross vision intact ENT: Nares are clear Chest: Symmetrical expansion, chest wall is tender to R lateral chest wall, otherwise nontender throughout, no palpable crepitus CV: S1 & S2 noted, no edema, 2+ DP pulses bilaterally, HDS Pulm: Lungs CTA & equal bilaterally, no wheezes/rhonchi/crackles, no distress, on 1 liters/min via nasal cannula GI: Abd obese, soft, non-distended, nontender, no peritoneal signs Pelvis: Pelvis is stable & nontender Spine: No c-collar , C-spine is nontender, T-spine is nontender, L/S-spine are nontender, no step-offs or deformities, no neuro deficits noted Ext/MSK: Extremities are non-tender, no obvious deformities, no joint edema, BONNIE x4, 5/5 strength with hand sewer builder and foot dorsi/plantar flexion bilaterally, sensation intact, neurovascular intact Skin: Skin warm, dry and grossly intact, no obvious rashes or lesions noted Laboratory Studies: Recent laboratory studies reviewed CBC: Results from last 7 days Lab Units 09/08/19 0457 WBC K/mcL 9.61 HGB g/dL 13.6 HCT % 41.4 PLT K/mcL 217 Results from last 7 days Lab Units 09/08/19 0457 09/07/19 1643 HGB g/dL 13.6 14.8 Coags: Results from last 7 days Lab Units 09/07/19 1643 INR 1.1 Results from last 7 days Lab Units 09/07/19 1643 INR 1.1 Chem: Results from last 7 days Lab Units 09/08/19 0457 SODIUM mmol/L 136 POTASSIUM mmol/L 3.8 CHLORIDE mmol/L 100 BUN mg/dL 15 CREATININE mg/dL 0.48* CALCIUM mg/dL 9.1 GLUCOSE mg/dL 127* Results from last 7 days Lab Units 09/08/19 0457 09/07/19 1643 CREATININE mg/dL 0.48* 0.46* Diagnostic Imaging: Recent diagnostic imaging/reports reviewed XR Chest 1 View Final Result 1. Multiple right-sided rib fractures seen on the CT chest, abdomen and pelvis from [facility] on 09/07/2019 are not appreciable on this study. 2. Low lung volumes with bibasilar hypoventilation otherwise no acute process involving lungs. 3. Previously described small right pneumothorax is not appreciable on this study. [employer] Workstation ID: [id number] XR Comparison Import Final Result CT Comparison Import Final Result CT Comparison Import Final Result CT Comparison Import Final Result XR Chest 1 View Final Result 1. 4 mm right apical pneumothorax, likely stable compared to the prior CT but not visualized on the previous chest radiograph. Recommend short-term continued radiographic follow-up. 2. Right rib fractures noted on previous CT are not well visualized radiographically. There is mild right chest wall subcutaneous emphysema. 3. Limited study but no other definite acute process. SAY/lab Workstation ID: [id number] Franci Mccartney PA-C 09/08/2019 9:53 AM Associated Problem(s): Abnormal radiograph Trauma imaging showed incidental findings including - 7 mm subpleural nodule in the right middle lobe, adjacent to the major fissure. 5 mm subpleural nodule in the right middle lobe - Fatty infiltration of liver - 1.8 cm L renal cyst Will discuss with patient prior to discharge. Follow-up with PCP as an outpatient. Associated Problem(s): Hypertension Per history - Continued home meds - Medicine followed Associated Problem(s): Multiple closed fractures of ribs of right side [facility] CT CAP with mildly displaced R lateral 3rd-6th rib fractures and nondisplaced 7th-8th rib fractures. Tiny R pneumothorax and trace R pleural effusion noted - S/p rib fixation 09/[address] Chris with Exparel block - CT d/c'd 09/12 - Cardiac monitoring - O2 PRN for O2 sat <92% - Aggressive pulmonary hygiene/IS/Acapella - Multimodal pain control - PT/OT daily. OOB TID Associated Problem(s): Fall Mechanical fall (slipped on ice) from deer/tree stand (4-6 feet high) onto anterior abdomen. No head strike, no LOC, no AC/AP. GCS 15. No focal neurological deficits. HDS. - [facility] imaging: CT H, Cs, CAP, CXR with multiple R rib fractures, otherwise negative - [facility] CT C-spine negative for acute injury; C-spine cleared - [facility]: CXR - Pain/nausea controlled - PT/OT - Dispo plan home today with [facility] I personally evaluated and examined the patient. I discussed the patient with DISTRIBUTION SALES REPRESENTATIVE/PA/resident. I agree with the DISTRIBUTION SALES REPRESENTATIVE/PA/resident's treatment plan. I agree with the DISTRIBUTION SALES REPRESENTATIVE/PA/resident's plan of care. I agree with the DISTRIBUTION SALES REPRESENTATIVE/PA/resident's disposition as documented. If the patient was seen with a resident, then I was present during hernandez portions of separately performed procedures if applicable. Patient presents with concern for multiple rib fractures after falling out of a tree stand earlier today. Denies head trauma, loss of consciousness, use of blood thinning medications. No abdominal rigidity or pain on my palpation. He has right-sided rib tenderness to palpation. Satting well on nasal cannula, trauma consulted for further evaluation and disposition, treated with analgesic medication in the emergency department. In addition to the above, an extensive differential diagnosis for the patient's symptoms was considered and emergent conditions that were considered but felt to be sufficiently clinically unlikely were not further pursued. Nursing notes and vital signs reviewed. I advised the patient to have PCP obtain records from today's visit as soon as possible to ensure potential incidental findings are addressed. Medications Ordered/Given During ED Visit: Medications morphine syringe 8 mg (8 mg Intravenous Given 09/07/19 1543) [facility] Transfer Center Advanced Practice Provider Trauma Transfer Note Demographic/Patient Information: Patient Name: Solomon Almendarez Age/Sex: 44 y.o., male : 1975 MECHANISM OF INJURY: Fall from height LOC: No Anticoagulant / Anti-platelet Rx: No If yes, list time of reversal agents provided prior to transfer: NA Open Fracture Coverage: N/A INJURIES: Right sided rib fractures Right pulmonary contusion Right chest hematoma OTHER MEDICAL PROBLEMS: obese [id number] communication has occurred between the on-call Transfer [facility] and the following referring provider: REFERRING PROVIDER CONTACT INFORMATION: Provider: Dr. Leyva Department: ED Referring Facility: [facility] The patient will be accepted by the trauma attending/team at the following facility: ACCEPTING PHYSICIAN CONTACT INFORMATION: Accepting Facility: [facility] Destination: Transport to ED If planned direction admission, recommended level of care: N/A Does Patient meet Level One Trauma Activation Criteria?: No HPI (Events over past 24 hours): Patient fell apprx 6feet from tree stand, falling forward. Struck chest. Has had severe pain limiting evaluation. Transfer to [facility] for evaluation. PHYSICAL EXAM (Pertinent positive findings): HR 91, 92% on RA, 163/85 Right chest TTP no crepitus Abdomen soft, nontender IMAGING: CT Head: Results Pending CT Cervical Spine: Results Pending CT Chest: Results Pending CT Abdomen/Pelvis: Results Pending CXR: Negative [facility] Discussion with Referring Provider: All outside images and reports have been requested to be sent. Other Transfer Notes: Received fenatnyl, morphine, dialudid for pain for CT imaging. Imaging of H/N negative per Dr. Leyva interpretation. CT Chest without pneumothorax Lactate 2.5 and receiving fluids Recommendations made by TCAPP: none If you have any questions about this referral note, you may contact the Trauma Transfer [facility] at . Raine Mesa PA-C 12:41 PM 09/07/19 documented in this encounter Associated Problem(s): Multiple closed fractures of ribs of right side Right 3-8 rib fractures s/p fall on 09/08/2019 (S/p rib fixation with Dr. Chris) - No distress on RA, SpO2 94%, lung sounds clear bilaterally - Pt reports pain improved since discharge, managing with Tylenol and PRN Oxy at home - Grace removed from right chest wall surgical incision site and reinforced with steri-strips. - Wound appears non-erythematous, non-infected and without dehiscnce but with minimal discharge. - CXR in clinic reviewed and with right lower lobe consolidation which appears improved since CXR at discharge from hospital. - Pt to follow-up with Dr. Chris for re-evaluation documented in this encounter (unrecognized sect ion and content) No Status Records FoundNo Status Records FoundNo Status Records FoundNo Status Records FoundNo Status Records FoundNo Status Records FoundNo Status Records Found INFORMATION SOURCE (unrecogn ized section and content) DATE CREATED AUTHOR AUTHOR'S ORGANIZ ATION 10/24/2019 [facility] DATE CREATED AUTHOR AUTHOR'S ORGANIZ ATION 12/02/2019 [facility] DATE CREATED AUTHOR AUTHOR'S ORGANIZ ATION 10/18/2020 [place] DATE CREATED AUTHOR AUTHOR'S ORGANIZ ATION 10/29/2020 [facility] DATE CREATED AUTHOR AUTHOR'S ORGANIZ ATION 01/01/2023 [facility] DATE CREATED AUTHOR AUTHOR'S ORGANIZ ATION 03/19/2023 [facility] Source Comments (unrecognize d section and content) In the event this informatio n is protected by the Federal Confidentiality of Alcohol and Drug Abuse Patient Records regulations: The Federal rules restrict any use of the information to criminally investigate or prosecute any alcohol or drug abuse patient.[facility] Care Teams (unrecognized sec tion and content) Senior Controls Engineer Relationship Specialty Start Date End Date Antolin Barron [address] [place] [address] PCP - General 04/05/20 Senior Controls Engineer Relationship Specialty Start Date End Date Antolin Barron [address] [place] [address] PCP - General 04/05/20 Brigitte Pathak MD [address] [place] [address] [address] [place] [address] Surgeon General Surgery 03/11/23 FOR RECORDS PERTAINING TO PATIENTS WHO ARE OR HAVE BEEN ENROLLED IN A CHEMICAL DEPENDENCY/SUBSTANCEABUSE PROGRAM, SOME INFORMATION MAY BE OMITTED. This clinical summary was aggregated from multiple sources. Caution should be exercised in using it in the provision of clinical care. This summary normalizes information from multiple sources, and as a consequence, information in this document may materially change the coding, format and clinical context of patient data. In addition, data may be omitted in some cases. CLINICAL DECISIONS SHOULD BE BASED ON THE PRIMARY CLINICAL RECORDS. [facility] [employer] [facility]. provides no warranty or guarantee of the accuracy or completeness of information in this document.
--- OUTSIDE RECORDS SUMMARY | 2023-12-13 08:57 | XMS RPT_ITS | CCD ---
Author Name Unknown Address [address] [place] [address] Organization [facility] Care Team Providers Care Family Practitioner Name Role Phone Antolin Barron Primary Care Provider IBRAHIMA DOUGHERTY Admitting Unavaila DAVID Smith Referring Unavailable TRAUMA SURGEONS [facility] Consulting Camille ANTOLIN Aiken Primary Care Unavailable AMAYA PINEDO Attending Unavailable [facility] Consulting U navailable PENCIL, SELMA GREENE Admitting Unavailable ANTOLIN BARRON Primary Care Unavailable FROY ROY Attending Unavailable FROY ROY Admitting Unavailable ANTOLIN BARRON Primary Care Unavailable ROWAN JACKSON Attending Unavailable ROWAN JACKSON Referring Unavailable ANTOLIN ABRRON Primary Care Unavailable ROWAN JACKSON Attending Unavailable ROWAN JACKSON Referring Unavailable ANTOLIN BARRON Primary Care Unavailable Antolin Barron Primary Care Provider Antolin Barron Primary Care Provider Antolin Barron Primary Care Provider [facility] Admitting Unava ilable POMERENE, [facility] Attending Unava ilable POMERENE, [facility] Primary Care Unava ilable POMERENE, [facility] Attending Unava ilable POMERENE, [facility] Primary Care Unava ilable FAISON, [facility] Admitting Unava ilable [facility]LL[facility], [facility] Attending Unavaila ble HOLLIE, [facility] Primary Care Unavaila ble HOLLIE, [facility] Admitting Unavaila ble Antolin Barron Primary Care Provider Antolin Barron Primary Care Provider Antolin Barron MD Primary Care Provider 1( [phone] ANTOLIN BARRON Primary Care Unavailable OLLIE MEJÍA Attending Unavailbrittany e Antolin Barron Primary Care Provider Antolin Barron Primary Care Provider Brigitte Pathak MD Unavailable BRIGITTE PATHAK Attending Unavailable [facility] Referring Unavailable ANTOLIN BARRON Primary Care Unavailable Allergies Allergy Classification Reported Allergen(s) Allergy Type Date of Onset Reaction(s) Facility NSAIDs (1 source) Ibuprofen Drug Allergy 04-06-2020 Anaphylaxis [facility] (20 sources) Ibuprofen; Translations: [Unknown] Drug Allergy 06-07-2013 Anaphylaxis [facility] (11 sources) celecoxib Drug Allergy 06-07-2013 [facility] Medications Current Medications Medication Drug Class(es) Dates [...] Sig (Original) acetaminophen 325 mg oral tablet (16 sources) Start: 09-12-2019 End: 09-14-2019 take 2 [...] [Hypermetropia, bilateral] Onset: 12-31-2022 Episodic Esophageal disorders (20 sources) Gastro-esophageal reflux disease with esophagitis; Translations: [Gastroesophageal reflux disease with esophagitis without hemorrhage] Onset: 07-26-2020 07-26-2020 Chronic Esophageal disorders (2 sources) Esophageal disorders; Translations: [Gastro-esophageal reflux disease with esophagitis, without bleeding] Onset: 07-19-2022 Essential hypertension (20 sources) Hypertensive disorder; Translations: [Essential (primary) hypertension] Onset: 09-07-2019 09-14-2019 Chronic External cause codes: Fall (5 sources) Fall; Translations: [Fall] Onset: 09-07-2019 09-14-2019 Gastritis and duodenitis (13 sources) Chronic superficial gastritis; Translations: [Chronic superficial gastritis without bleeding] Onset: 07-26-2020 07-26-2020 Chronic Gastritis and duodenitis (7 sources) Chronic superficial gastritis; Translations: [Chronic superficial gastritis without bleeding] 07-26-2020 Episodic Other lower respiratory disease (20 sources) Dyspnea; Translations: [Shortness of breath] Onset: 06-17-2020 06-17-2020 Episodic Other nutritional; endocrine; and metabolic disorders (16 sources) Morbid obesity; Translations: [Morbid (severe) obesity due to excess calories] Onset: 09-08-2019 09-14-2019 Chronic Other nutritional; endocrine; and metabolic disorders (20 sources) Body mass index 40+ - severely obese; Translations: [Morbid (severe) obesity due to excess calories] Onset: 04-07-2020 04-07-2020 Chronic Other nutritional; endocrine; and metabolic disorders (8 sources) Obesity caused by energy imbalance; Translations: [Morbid (severe) obesity due to excess calories] Onset: 07-15-2020 07-19-2022 Chronic Other nutritional; endocrine; and metabolic [...] te Episodic/Chronic Other and unspecified benign neoplasm (20 sources) Gastric polyp; Translations: [Polyp of stomach and duodenum] Onset: 07-26-2020 07-26-2020 Episodic Other fractures (4 sources) Closed fracture of multiple ribs; Translations: [Closed fracture of multiple ribs of right side with routine healing, subsequent encounter] Episodic Results Test Name Value Interpretation Reference Range Facil ity Vital Signs Date Time Vital Sign Value Performing Clinician Facility 03-11-2023 13:040 Body height 172.7 cm ORDISSIMO Work Phone: [employer] 03-11-2023 13:26-0400 Body mass index (BMI) [Ratio] 62.13 kg/m2 ORDISSIMO Work Phone: [employer] 03-11-2023 13:26-040 Body temperature 97.59 [degF] Keara Zupke PA Work Phone: [facility] 03-11-2023 13:26-0400 Body weight 185.34 kg Keara Zupke PA Work Phone: [facility] 03-11-2023 13:26-0400 Diastolic blood pressure 82 mm[Hg] Keara Zupke PA Work Phone: [facility] 03-11-2023 13:26-0400 Heart rate 68 /min Keara Zupke PA Work Phone: [facility] 03-11-2023 13:26-0400 Respiratory rate 20 /min Keara Zupke PA Work Phone: [facility] 03-11-2023 13:26-0400 Systolic blood pressure 130 mm[Hg] Keara Zupke PA Work Phone: [facility] 07-26-2020 08:55-0400 BP Diastolic 91 mm[Hg] Brigitte [facility] [place] 07-26-2020 08:55-0400 BP Systolic 131 mm[Hg] Brigitte Fernandez[facility] [place] 07-26-2020 08:55-0400 Pulse (Heart Rate) 77 /min Brigitte FernandezNORCATalejandroPeople Publishing[place] 07-26-2020 08:55-0400 Pulse Oximetry 96 % Brigitte Fernandez[facility] [place] 07-26-2020 08:55-0400 Respiratory Rate 18 /min Brigitte Sabillon[facility], [place] 07-26-2020 07:50-0400 BMI (Body Mass Index) 63.5 kg/m2 Brigitte Fernandez[facility] [place] 07-26-2020 07:50-0400 Body Temperature 98.4 [degF] Brigitte Sabillon[facility] [place] 07-26-2020 07:50-0400 Body weight 195.05 kg Brigitte FernandezNORCATale[place]androPeople Publishing[place] 07-26-2020 07:50-0400 Height 175.3 cm Brigitte FernandezMandoyo[place] 09-24-2019 10:17-0500 BMI (Body Mass Index) 57.25 kg/m2 [facility] 09-24-2019 10:17-0500 Body Temperature 97.7 [degF] Froy Roy [facility] 09-24-2019 10:17-0500 Body weight 180.99 kg Froy Roy [facility] 09-24-2019 10:17-0500 BP Diastolic 78 mm[Hg] Froy Roy [facility] 09-24-2019 10:17-0500 BP Systolic 134 mm[Hg] Froy Roy [facility] 09-24-2019 10:17-0500 Height 177.8 cm Froy Roy [facility] 09-24-2019 10:17-0500 Pulse (Heart Rate) 84 /min Froy Roy [facility] 09-24-2019 10:17-0500 Pulse Oximetry 94 % Froy Roy [facility] 09-24-2019 10:17-0500 Respiratory Rate 16 /min Froy Roy [facility] 09-14-2019 13:29-0500 Respiratory Rate 16 /min Pedro Alejandro [facility] 09-14-2019 11:36-0500 Body Temperature 97.5 [degF] Pedro Alejandro [facility] 09-14-2019 11:36-0500 BP Diastolic 91 mm[Hg] Pedrocristi Alejandro [facility] Encounters Encounter Date Encounter Type Care Provider Facility Start: 06-11-2023 Patient encounter status Breanna IRVING Work Phone: [facility] Start: 06-11-2023 Preoperative state Keara Mychal IRVING Work Phone: [facility] Start: 06-11-2023 Telephone encounter Keara Ybarra Work Phone: [facility] Procedures Date Procedure Procedure Detail Performing Clinician Start: 09-27-2020 Echo tthrc r-t 2d w/wom-mode compl spec&colr d Andrea Dawn Work Phone: Start: 07-26-2020 [facility] ENDOSCOPY REPORT 3m Scanning Start: 10-23-2019 Mri any jt upper ext remity w/o contrast matrl External Transcribed Start: 10-23-2019 Mri any jt upper ext remity w/o contrast matrl External Transcribed Start: 09-14-2019 Basic metabolic 2000 panel - Serum or Plasma Froy Syedio Ory Work Phone: Start: 09-14-2019 Complete blood count [...] al blood gas studies Generic [facility] Work Phone: Start: 09-08-2019 Radiologic exam ches t single view Jose P Ingersol Work Phone: Start: 09-08-2019 End: 09-08-2019 THORACOPLASTY WITH RIB FIXATION Phoenix Chris Work Phone: Start: 09-08-2019 Drugs of abuse urine screening test Franci Cassie Bib Work Phone: Start: 09-08-2019 Urinalysis Franci olivas Bib Work Phone: Start: 09-08-2019 Basic metabolic 2000 panel - Serum or Plasma Franci Matthews Bib Work Phone: Start: 09-08-2019 Complete blood count (hemogram) panel - Blood by Automated count Franci Matthews Bib Work Phone: Start: 09-08-2019 Radiologic exam ches t single view Brisa Miranda Work Phone: Start: 09-08-2019 12 lead ECG Bryce Verde Work Phone: Start: 09-07-2019 Blood group typing Ciro Mccartney Work Phone: Start: 09-07-2019 Radiographic imaging procedure External Transcribed Start: 09-07-2019 End: 09-07-2019 Computerized tomography, limited studies External Transcribed Start: 09-07-2019 Basic metabolic 2000 panel - Serum or Plasma Franci Matthews Bib Work Phone: Start: 09-07-2019 Blood type and Indir ect antibody screen panel - Blood Franci Matthews Bib Work Phone: Start: 09-07-2019 Complete blood count (hemogram) panel - Blood by Automated count Franci Bravojose Mccartney Work Phone: Start: 09-07-2019 Ethanol [Mass/volume ] in Serum or Plasma Franci Matthews Bib Work Phone: Start: 09-07-2019 MANZANO TOP Pedro Alejandro Work Phone: Start: 09-07-2019 INR in Platelet poor plasma by Coagulation assay Franci Mccartney Work Phone: Start: 09-07-2019 LIGHT GREEN TOP Pedro radford Jenna Alejandro Work Phone: Start: 09-07-2019 RAINBOW DRAW Pedro Manjarrez Jenna Alejandro Work Phone: Start: 09-07-2019 Radiologic exam ches t single view Renee Ashtoncole Work Phone: Plan of Treatment Date Care Activity Detail Author Start: 2036 RSV Immunization aged 60 or older (1 - 1-dose 60+ series) RSV Immunization aged 60 or older (1 - 1-dose 60+ series) [facility] Start: 2026 Zoster Vaccines (1 of 2) Zoster Vaccines (1 of 2) [facility] Start: 08-28-2023 End: 08-28-2023 Clinical Support [facility] Start: 06-11-2023 End: 06-11-2024 25-hydroxyvitamin D3 [Mass/volume] in Serum or Plasma Vitamin D Deficiency Screening (Vit D 25) Lab Routine SOB (shortness of breath) Hypertension, unspecified type Gastroesophageal reflux disease with esophagitis without hemorrhage Morbid obesity with BMI of 60.0-69.9, adult ([facility]) Pre-operative laboratory examination Expected: 06/11/2023, Expires: 06/11/2024 [facility] Payers Date Payer Category Payer Unknown [id number] 2020 Unknown [id number] 2020 Private Health Insurance MAXJOSE TEAGUE O xxxxxxxxxxxxx 2020-Present [phone] [address] [place] [address] xxxxxxxxxxxxx [id number] 2020 Private Health Insurance CIGNA CIGNA HMO [id number] 2020-Present [phone] [address] [place] [address] [id number] 2020 Private Health Insurance CIGNA CIGNA HMO [id number] 2020-Present [phone] [address] [place] [address] [id number] 2019 Unknown xxxxxxxxxxx [id number] 2019 Unknown [id number] 1975 Unknown [id number] 1976 Unknown [id number] 1976 Unknown [id number] 1976 Unknown [id number] 1976 Unknown [id number] Social History Date Type Detail Facility Start: 09-09-2019 End: 09-24-2019 Tobacco smoking status WAIS Never smoker [facility] History of tobacco use Chews Tobacco [facility] Start: 09-09-2019 End: 03-14-2023 Alcohol intake Current drinker of alcohol (finding) [facility] Start: 09-08-2019 Alcohol Comment occ alcohol, sociall y [facility] Start: 1975 Sex Assigned At Not on file O [facility] Start: 04-07-2020 End: 03-11-2023 Tobacco smoking status WAIS Former smoker [facility] End: 04-06-2000 History of tobacco use Current smoker [facility] [employer] LAURA CHIN Start: 04-06-2020 Alcohol Comment occasionally LAURA Gupta Start: 04-22-2020 End: 03-11-2023 Tobacco use and exposure Current user LAURA Faustin Start: 07-26-2020 End: 09-25-2022 Alcohol intake Ex-drinker (finding) Suha [facility] Tor CHIN Y Start: 03-01-2023 End: 03-11-2023 Exposure to SARS-CoV-2 (event) Not sure [facility] [employer] LAURA CHIN Start: 04-06-2020 Alcohol Comment occasionally [facility] Work Phone: End: 04-06-2000 History of tobacco use Cigarette Smoker [facility] Start: 12-31-2022 [facility] Start: 03-11-2023 End: 03-14-2023 History of Social function [facility] Start: 03-11-2023 End: 03-14-2023 Tobacco use panel [facility] Start: 03-11-2023 Tobacco Comment 1 pack per wee k- tobacco pouches [facility] Start: 03-11-2023 Alcohol Comment 1/ [facility] Medical Equipment Procedure Code Equipment Code Equipment Origin al Text Equipment Identifier Dates 50 Mm U Plus Rib Plate [id number] Start: 09-08-2019 Screw 2.7 X 10mm Locking Ribloc U Plus - [id number] Start: 09-08-2019 10mm X 2mm (Gree n) U Plus 90 Drill [id number] Start: 09-08-2019 Clinical Notes 12-31-2022 to 10-03-2023 Telephone Encounter - MARIA FERNANDA Lewis - 10/03/2023 7:51 AM ESTTelephone Encounter - MARIA FERNANDA Lewis - 10/03/2023 7:51 AM ESTAddendum Note - Ibeth Andrade LPN - 10/03/2023 7:25 AM EST Note Date & Type Note Facility 10-03-2023 Note Addended by: Nestor ANDRADE on: 10/03/2023 07:25 AM Modules accepted: [facility] 12-28-2023 Telephone encounter Note Noted, thanks [facility] 10-03-2023 Miscellaneous Notes Noted, thanks Addended by: IBETH ANDRADE on: 10/03/2023 07:25 AM Modules accepted: Orders Addended by: IBETH ANDRADE on: 10/01/2023 03:29 PM Modules accepted: Orders Patient contacted the office today, as they no longer wish to proceed with workup towards weightloss surgery. Reason for withdraw from program: Spoke with patient and interested in non surgical program [x] Non-Surgical Program Offered [] Patient is not Interested at this time. [x] Patient is Interested in NSURG option, and forwarded to NPT for scheduling. New Psych and BNA appointments cancelled. [x] Sent to surgeons clinical pool to: [x] Clinical staff to cancel any outstanding Testing Labs Referrals Scheduled [facility] Appointments (DE/Psych/Nutrition) [] Clinical staff to notify ALS via Clinical Documentation if EGD is to be cancelled via pool: EGD not ordered. [facility] CLINICAL POWER DRIVEN BRUSH MAKER (List Surgeon as provider in the TE) [x] Clinical staff to note in specialty comment date patient has withdrawn from the program [x] Sent to TAZ and Surgical Navigation and Financial Teams for notification. Dariela - please cancel any team meeting LVM to call back LVM for patient to call back Images from the original note were not included. status of surgical program Received: Today RASHARD Mayer LPN Call patient and see if ready to resume program. LVM for patient to call back regarding interest in surgical program. Noted, thanks Spoke with patient, he is still uncertain about program, has a lot of stuff I am dealing with, father just DX W/ lung CA . Will call back after August to let us know if he wants to procedd with surgical program or may switch to non- surgical. Reminder set to contact patient mid August. Pre op check list scanned to [employer], orders mailed. Call patient and remind him about labs and pre op check list is in the mail. Pt seen for update orders 03/11/23 and was not quite ready to begin workup at that time due to school/work schedule so deferred until August. Placing orders at this time. JoseZ team-please process mailing orders. Please also call pt as a reminder of appts and that we will be mailing out labs. Thanks! Lora- please contact pt with financial info as he did not meet with anyone day he was here in March, thanks PATIENT SUMMARY Mik Pathak 47 y.o. male [...] nicotine screen prior to proceeding with surgery. documented in this encounter [facility] 10-03-2023 Note Addended by: Nestor ANDRADE on: 10/03/2023 07:25 AM Modules accepted: Orders [facility] 10-03-2023 Note Addended by: Nestor ANDRADE on: 10/03/2023 07:25 AM Modules accepted: Orders [facility] 10-01-2023 Note Addended by: Nestor ANDRADE on: 10/01/2023 03:29 PM Modules accepted: Orders [facility] 10-01-2023 Note Addended by: Nestor ANDRADE on: 10/01/2023 03:29 PM Modules accepted: Orders [facility] 10-01-2023 Note Addended by: Nestor ANDRADE on: 10/01/2023 03:29 PM Modules accepted: Orders [facility] 10-01-2023 Note Addended by: Nestor ANDRADE on: 10/01/2023 03:29 PM Modules accepted: Orders [facility] 10-01-2023 Miscellaneous Notes Addended by: IBETH ANDRADE on: 10/01/2023 03:29 PM Modules accepted: Orders Patient contacted the office today, as they no longer wish to proceed with workup towards weightloss surgery. Reason for withdraw from program: Spoke with patient and interested in non surgical program [x] Non-Surgical Program Offered [] Patient is not Interested at this time. [x] Patient is Interested in NSURG option, and forwarded to NPT for scheduling. New Psych and BNA appointments cancelled. [] Sent to surgeons clinical pool to: [] Clinical staff to cancel any outstanding Testing Labs Referrals Scheduled [facility] Appointments (DE/Psych/Nutrition) [] Clinical staff to notify ALS via Clinical Documentation if EGD is to be cancelled via pool: [facility] ALS CLINICAL POWER DRIVEN BRUSH MAKER (List Surgeon as provider in the TE) [] Clinical staff to note in specialty comment date patient has withdrawn from the program [] Sent to TAZ and Surgical Navigation and Financial Teams for notification. LVM to call back LVM for patient to call back Images from the original note were not included. status of surgical program Received: Today RASHARD Mayer LPN Call patient and see if ready to resume program. LVM for patient to call back regarding interest in surgical program. Noted, thanks Spoke with patient, he is still uncertain about program, has a lot of stuff I am dealing with, father just DX W/ lung CA . Will call back after August to let us know if he wants to procedd with surgical program or may switch to non- surgical. Reminder set to contact patient mid August. Pre op check list scanned to media, orders mailed. Call patient and remind him about labs and pre op check list is in the mail. Pt seen for update orders 03/11/23 and was not quite ready to begin workup at that time due to school/work schedule so deferred until August. Placing orders at this time. BRO team-please process mailing orders. Please also call pt as a reminder of appts and that we will be mailing out labs. Thanks! Lora- please contact pt with financial info as he did not meet with anyone day he was here in March, thanks PATIENT SUMMARY Mik Pathak 47 y.o. male [...] nicotine screen prior to proceeding with surgery. documented in this encounter [facility] 10-01-2023 Telephone encounter Note Patient contacted the office today, as they no longer wish to proceed with workup towards weightloss surgery. Reason for withdraw from program: Spoke with patient and interested in non surgical program [x] Non-Surgical Program Offered [] Patient is not Interested at this time. [x] Patient is Interested in NSURG option, and forwarded to NPT for scheduling. New Psych and BNA appointments cancelled. [x] Sent to surgeons clinical pool to: [x] Clinical staff to cancel any outstanding Testing Labs Referrals Scheduled [facility] Appointments (DE/Psych/Nutrition) [] Clinical staff to notify ALS via Clinical Documentation if EGD is to be cancelled via pool: EGD not ordered. [facility] ALS CLINICAL POWER DRIVEN BRUSH MAKER (List Surgeon as provider in the TE) [x] Clinical staff to note in specialty comment date patient has withdrawn from the program [x] Sent to TAZ and Surgical Navigation and Financial Teams for notification. Dariela - please cancel any team meeting [employer] 09-10-2023 Telephone encounter Note LVM to call back [facility] 09-10-2023 Miscellaneous Notes LVM to call back LVM for patient to call back Images from the original note were not included. status of surgical program Received: Today RASHARD Mayer LPN Call patient and see if ready to resume program. LVM for patient to call back regarding interest in surgical program. Noted, thanks Spoke with patient, he is still uncertain about program, has a lot of stuff I am dealing with, father just DX W/ lung CA . Will call back after August to let us know if he wants to procedd with surgical program or may switch to non- surgical. Reminder set to contact patient mid August. Pre op check list scanned to media, orders mailed. Call patient and remind him about labs and pre op check list is in the mail. Pt seen for update orders 03/11/23 and was not quite ready to begin workup at that time due to school/work schedule so deferred until August. Placing orders at this time. JZ team-please process mailing orders. Please also call pt as a reminder of appts and that we will be mailing out labs. Thanks! Lora- please contact pt with financial info as he did not meet with anyone day he was here in March, thanks PATIENT SUMMARY Mik Pathak 47 y.o. male with Body mass index is 62.13 kg/m . Planned Procedures: Laparoscopic Sleeve Gastrectomy and Laparoscopic Liver Biopsy DM[] HTN[x] KERRY[x] GERD[] HL[] OA[] TOB[x] Date of Surgery: TBD JZ ANTOLIN BARRON INITIAL PRE-OP TESTING ORDERS/ RESULTS Labwork [...] nicotine screen prior to proceeding with surgery. documented in this encounter [facility] 09-03-2023 Telephone encounter Note LVM for patient to call back [facility] 09-03-2023 Miscellaneous Notes LVM for patient to call back Images from the original note were not included. status of surgical program Received: Today RASHARD Mayer LPN Call patient and see if ready to resume program. LVM for patient to call back regarding interest in surgical program. Noted, thanks Spoke with patient, he is still uncertain about program, has a lot of stuff I am dealing with, father just DX W/ lung CA . Will call back after August to let us know if he wants to procedd with surgical program or may switch to non- surgical. Reminder set to contact patient mid August. Pre op check list scanned to media, orders mailed. Call patient and remind him about labs and pre op check list is in the mail. Pt seen for update orders 03/11/23 and was not quite ready to begin workup at that time due to school/work schedule so deferred until August. Placing orders at this time. JZ team-please process mailing orders. Please also call pt as a reminder of appts and that we will be mailing out labs. Thanks! Lora- please contact pt with financial info as he did not meet with anyone day he was here in March, thanks PATIENT SUMMARY Mik Pathak 47 y.o. male [...] nicotine screen prior to proceeding with surgery. documented in this encounter [facility] 08-23-2023 Telephone encounter Note Images from the original note were not included. status of surgical program Received: Today RASHARD Mayer LPN Call patient and see if ready to resume program. LVM for patient to call back regarding interest in surgical program. [facility] 08-23-2023 Miscellaneous Notes Images from the original note were not included. status of surgical program Received: Today RASHARD Mayer LPN Call patient and see if ready to resume program. LVM for patient to call back regarding interest in surgical program. Noted, thanks Spoke with patient, he is still uncertain about program, has a lot of stuff I am dealing with, farther just DX W/ lung CA . Will call back after August to let us know if he wants to procedd with surgical program or may switch to non- surgical. Reminder set to contact patient mid August. Pre op check list scanned to [employer], orders mailed. Call patient and remind him about labs and pre op check list is in the mail. Pt seen for update orders 03/11/23 and was not quite ready to begin workup at that time due to school/work schedule so deferred until August. Placing orders at this time. BRO team-please process mailing orders. Please also call pt as a reminder of appts and that we will be mailing out labs. Thanks! Lora- please contact pt with financial info as he did not meet with anyone day he was here in March, thanks PATIENT SUMMARY Mik Pathak 47 y.o. male [...] nicotine screen prior to proceeding with surgery. documented in this encounter [facility] [employer] 06-14-2023 Telephone encounter Note Noted, thanks [facility] 06-14-2023 Miscellaneous Notes Noted, thanks Spoke with patient, he is still uncertain about program, has a lot of stuff I am dealing with, farther just DX W/ lung CA . Will call back after August to let us know if he wants to procedd with surgical program or may switch to non- surgical. Reminder set to contact patient mid August. Pre op check list scanned to media, orders mailed. Call patient and remind him about labs and pre op check list is in the mail. Pt seen for update orders 03/11/23 and was not quite ready to begin workup at that time due to school/work schedule so deferred until August. Placing orders at this time. BRO team-please process mailing orders. Please also call pt as a reminder of appts and that we will be mailing out labs. Thanks! Lora- please contact pt with financial info as he did not meet with anyone day he was here in March, thanks PATIENT SUMMARY Mikfavio Pathak 47 y.o. male with Body mass [...] nicotine screen prior to proceeding with surgery. documented in this encounter [facility] 06-14-2023 Telephone encounter Note Spoke with patient, he is still uncertain about program, has a lot of stuff I am dealing with, father just DX W/ lung CA . Will call back after August to let us know if he wants to procedd with surgical program or may switch to non- surgical. Reminder set to contact patient mid August. [facility] [employer] [employer] 06-12-2023 Telephone encounter Note Pre op check list scanned to media, orders mailed. Call patient and remind him about labs and pre op check list is in the mail. [facility] 06-11-2023 Telephone encounter Note Pt seen for update orders 03/11/23 and was not quite ready to begin workup at that time due to school/work schedule so deferred until August. Placing orders at this time. [facility] team-please process mailing orders. Please also call pt as a reminder of appts and that we will be mailing out labs. Thanks! Lora- please contact pt with financial info as he did not meet with anyone day he was here in March, thanks PATIENT SUMMARY Mik Pathak 47 y.o. male with Body mass index is 62.13 kg/m . Planned Procedures: Laparoscopic Sleeve Gastrectomy and Laparoscopic Liver Biopsy DM[] HTN[x] KERRY[x] GERD[] HL[] OA[] TOB[x] Date of Surgery: TBD JZ ANTOLIN BARRON INITIAL PRE-OP TESTING ORDERS/ RESULTS Labwork [...] nicotine screen prior to proceeding with surgery. [facility] 03-11-2023 History of Presen t illness Narrative Images from the original note were not included. [facility] SUR[facility]ICAL PROGRAM Re- EVALUATION [...] I advised them to discuss with their physician/pizza driver regarding contraception to prevent during this period of time after surgery. In addition, all patients were counseled on compliance with prescribed vitamin supplementation, office visit follow-up and compliance with program standards. Plan: I have recommended proceeding with the evaluation, workup and legal nurse consultant preoperative consultations and testing for the primary procedure as outlined below: BARIATRIC AND METABOLIC SURGERY [facility] PATIENT SUMMARY Mik Pathak 47 y.o. male [...] Brigitte Pathak MD as Surgeon (General Surgery) [facility] SURGICAL WEIGHT LOSS MANAGEMENT PROGRAM Rooming Note [...] Joyce Gonsalez MA documented in this encounter [employer] 01-07-2023 Telephone encounter Note Brien Doty, can schedule with me in March, thanks [employer] Work Phone: 01-07-2023 Miscellaneous Notes Brien Doty, can schedule with me in March, thanks Keara, This patient saw Dr. Pathak for his initial consult on 04/07/20. Patient wants to start program again. Will he be scheduled with you or JZ? documented in this encounter [facility] 01-07-2023 Telephone encounter Note Keara, This patient saw Dr. Pathak for his initial consult on 04/07/20. Patient wants to start program again. Will he be scheduled with you or JZ? [facility] 12-31-2022 Note HNO ID: [id number] Author: Ollie Mejía OD Service: ? Author Type: STUMP BLOWER Type: Progress Notes Filed: 12/31/2022 10:11 AM [...] neuro exam findings as obtained by others. [facility] 12-31-2022 Instructions Ollie Mejía OD - 12/31/2022 10:10 AM EDT ASSESSMENT/PLAN: 1. Hyperopia, bilateral - ICD9: 367.0, ICD10: H52.03 (primary diagnosis) 2. Regular astigmatism, bilateral - ICD9: 367.21, ICD10: H52.223 3. Presbyopia - ICD9: 367.4, ICD10: H52.4 Discussed the option of progressive (no line), bifocals or reading glasses. Recommended yearly exams. documented in this encounter [facility] 12-31-2022 History of Presen t illness Narrative ASSESSMENT/PLAN: 1. Hyperopia, bilateral - ICD9: 367.0, ICD10: H52.03 (primary diagnosis) 2. Regular astigmatism, bilateral - ICD9: 367.21, ICD10: H52.223 3. Presbyopia - ICD9: 367.4, ICD10: H52.4 Discussed the option of progressive (no line), bifocals or reading glasses. Recommended yearly exams. Ollie Mejía, OD I have confirmed and edited as necessary the relevant ophthalmic history, ROS, and the neuro exam findings as obtained by others. documented in this encounter [facility] Diagnosis KERRY (obstructive sleep apnea)- Primary Obstructive sleep apnea (adult) (pediatric) Hypertension, unspecified type Morbid obesity with BMI of 60.0-69.9, adult ([facility]) Nicotine use [facility] Diagnosis SOB (shortness of breath)- Primary Shortness of breath Hypertension, unspecified type Gastroesophageal reflux disease with esophagitis without hemorrhage Morbid obesity with BMI of 60.0-69.9, adult (HCC) Pre-operative laboratory examination Pre-procedural laboratory examination Pre-operative clearance Unspecified pre-operative examination [facility] [place] [facility] Diagnosis SOB (shortness of breath)- Primary Shortness of breath Hypertension, unspecified type Gastroesophageal reflux disease with esophagitis without hemorrhage Morbid obesity with BMI of 60.0-69.9, adult (HCC) Pre-operative laboratory examination Pre-procedural laboratory examination Pre-operative clearance Unspecified pre-operative examination [facility] Diagnosis SOB (shortness of breath)- Primary Shortness of breath Hypertension, unspecified type Gastroesophageal reflux disease with esophagitis without hemorrhage Morbid obesity with BMI of 60.0-69.9, adult (HCC) Pre-operative laboratory examination Pre-procedural laboratory examination Pre-operative clearance Unspecified pre-operative examination [facility] Diagnosis SOB (shortness of breath)- Primary Shortness of breath Hypertension, unspecified type Gastroesophageal reflux disease with esophagitis without hemorrhage Morbid obesity with BMI of 60.0-69.9, adult (HCC) Pre-operative laboratory examination Pre-procedural laboratory examination Pre-operative clearance Unspecified pre-operative examination [facility] Diagnosis SOB (shortness of breath)- Primary Shortness of breath Hypertension, unspecified type Gastroesophageal reflux disease with esophagitis without hemorrhage Morbid obesity with BMI of 60.0-69.9, adult (HCC) Pre-operative laboratory examination Pre-procedural laboratory examination Pre-operative clearance Unspecified pre-operative examination [facility] Consultation (Routine) - Pending Review Specialty Diagnoses / Procedures Referred By Contac t Referred To Contact Pulmonary Disease / Pulmonology Diagnoses SOB (shortness of breath) Morbid obesity with BMI of 60.0-69.9, adult (HCC) Pre-operative clearance Procedures ME OFFICE/OUTPATIENT NEW HIGH MDM 60-74 MINUTES Keara Aragon PA [address] [place] [address] [facility] [address] [place] [address] Referral ID Status Reason Start Date Expiration Date Visits Requested Visits Authorized [id number] Pending Review Specialty Services Required 06/11/2023 06/10/2024 1 1 * Consultation (Elective) - Pending Review Specialty Diagnoses / Procedures Referred By Contac t Referred To Contact Cardiology Diagnoses SOB (shortness of breath) Hypertension, unspecified type Morbid obesity with BMI of 60.0-69.9, adult (HCC) Pre-operative clearance Procedures ME OFFICE/OUTPATIENT NEW HIGH MDM 60-74 MINUTES Keara Aragon PA [address] [place] [address] [facility] Cf Card [address] [place] [address] Referral ID Status Reason Start Date Expiration Date Visits Requested Visits Authorized [id number] Pending Review Specialty Services Required 06/11/2023 06/10/2024 1 1 [facility] Reason for Referral Status Reason Specialty Diagnoses / Procedures Referred By Contact Referred To Contact Pending Review Specialty Services Required/[facility] Diagnoses Closed fracture of multiple ribs with routine healing, unspecified laterality, subsequent encounter Amaya Pinedo MD [address] [address] Status Reason Specialty Diagnoses / Procedures Referred By Contact Referred To Contact Authorized Specialty Services Required/[facility] Diagnoses Closed fracture of multiple ribs with routine healing, unspecified laterality, subsequent encounter Closed fracture of multiple ribs of right side with routine healing, subsequent encounter Abnormal radiograph Morbid obesity (HCC) Lennox Noble MD [address] [address] Status Reason Specialty Diagnoses / Procedures Referre d By Contact Referred To Contact Closed Radiology Diagnoses Contusion of left scapula, initial encounter Procedures MR Shoulder Left Without Contrast Rowan [facility] PA-C [address] [place] [address] Status Reason Specialty Diagnoses / Procedures Referre d By Contact Referred To Contact Closed Radiology Diagnoses Contusion of right scapula, initial encounter Procedures MR Shoulder Right Without Contrast Rowan [facility] PA-C [address] [facility] [address] [place] [address] Hospital Course * Susannah Mercer, MARKETING ANALYTICS SPECIALIST - 09/14/2019 9:10 AM EST DISCHARGE SUMMARY Patient: Solomon Zamora Date of : 1975 Site: [facility] Family Provider: Antolin Barron MD Admit Date: 09/07/2019 [...] Patient was initially evaluated at an H ([place]) where imaging demonstrated R lateral 3rd-8th rib fractures with a small R PTX and trace R pleural effusion. He was transferred to [facility] for further evaluation. Injuries: Right 3rd-8th rib [...] multiple R rib fractures, otherwise negative - [facility] CT C-spine negative for acute injury; C-spine cleared - [facility]: CXR - Pain/nausea controlled - PT/OT - Dispo plan home today with [facility] * Multiple closed fractures of ribs of [...] by mouth daily . Physician(s) Family Provider: Antolni Barron MD, Address: [address] [place] [address] / [place] [phone] Follow Up: Antolin Barron MD [address] [place], [place] [phone] Follow up Follow up 1-2 weeks after trauma. [facility] [address] [facility] [address] Follow up Follow up in 1-2 weeks for rib check and grace removal. Will need to call to set up appointment on Friday 09/14. Ideally set up appointment for 09/22 Phoenix Chris MD [address] [place] [phone] Follow up in 1 month(s) Follow up in 4-6 weeks after surgery. Will need to call office to set up appointment [facility] Address: [address] [facility], [place] [address] Servicing [facility]: [phone] Patient instructions, including activity, were given to [...] with the plan as outlined by the resident/CHIEF MEDIA OFFICER. documented in this encounter Discharge Instructions * Discharge Instr - Care Coordination* Saloni Frausto MSW LSW - 09/10/2019 11:26 AM EST Your field nurse case manager from [facility], will be contacting you after discharge from the hospitalto check on you. [address] [address] * Additional Instructions* Pam Salmeron RN - [...] your doctor if you can take an gqce-sip-cfrvvza medicine. Even if it hurts, try to [...] Log into your personal health record on https://Jingle Punks Musict.ArtBinder and enter M135 in the Education box to learn more about Broken Rib: Care Instructions. Current as of: April 01, 2019 Content Version: 12.3 0220-5821 [employer]. Care instructions adapted under license by your healthcare professional. If you have questions about a medical condition or this instruction, always ask your healthcare professional. [employer] disclaims any warranty or liability for your [...] your doctor if you can take an gfph-bhl-kgozmbs medicine. Take your antibiotics as directed. Do [...] Log into your personal health record on https://Jingle Punks Musict.ArtBinder and enter U748 in the Education box to learn more about Chest Tube Removal: What to Expect at Home. Current as of: March 15, 2019 Content Version: 12.3 5741-6291 [employer]. Care instructions adapted under license by your healthcare professional. If you have questions about a medical condition or this instruction, always ask your healthcare professional. [employer] disclaims any warranty or liability for your [...] Log into your personal health record on https://The Paper Store.ArtBinder and enter B979 in the Education box to learn more about Learning About Using an Incentive Spirometer. Current as of: March 15, 2019 Content Version: 12.3 [employer]. Care instructions adapted under license by your healthcare professional. If you have questions about a medical condition or this instruction, always ask your healthcare professional. [employer] disclaims any warranty or liability for your use of this information. Cuts Closed With Grace: Care Instructions Your Care Instructions A cut can happen anywhere on your body. The doctor used grace to close the cut. Grace easily and quickly close a cut, which [...] your doctor if you can take an csah-gzi-pjpoapr medicine. When should you call for help? [...] Log into your personal health record on [email or web address].ArtBinder and enter E525 in the Education box to learn more about Cuts Closed With Grace: Care Instructions. Current as of: April 01, 2019 Content Version: 12.3 1360-0474 [employer]. Care instructions adapted under license by your healthcare professional. If you have questions about a medical condition or this instruction, always ask your healthcare professional. [employer] disclaims any warranty or liability for your [...] few simple measures. Follow-up care is a ehrnandez part of your treatment and safety. Be [...] Log into your personal health record on https://Jingle Punks [employer]ict.[employer]LightPath Apps and enter G117 in the Education box to learn more about Preventing Falls: Care Instructions. Current as of: May 12, 2019 Content Version: 12.3 2644-5229 [employer]. Care instructions adapted under license by your healthcare professional. If you have questions about a medical condition or this instruction, always ask your healthcare professional. [employer] disclaims any warranty or liability for your [...] Log into your personal health record on https://FunPuntoshart.ArtBinder and enter S176 in the Education box to learn more about Body Mass Index: Care Instructions. Current as of: January 01, 2019 Content Version: 12.3 [employer]. Care instructions adapted under license by your healthcare professional. If you have questions about a medical condition or this instruction, always ask your healthcare professional. [employer] disclaims any warranty or liability for your [...] about seeing a registered dietitian or an workforce development specialist. It can be a big challenge [...] healthy changes in your diet. ? An workforce development specialist or field sales trainer can help you develop a safe and [...] Log into your personal health record on https://The Paper Store.ArtBinder and enter U357 in the Education box to learn more about Starting a Weight Loss Plan: Care Instructions. Current as of: January 01, 2019 Content Version: 12.3 5569-6145 [employer]. Care instructions adapted under license by your healthcare professional. If you have questions about a medical condition or this instruction, always ask your healthcare professional. [employer] disclaims any warranty or liability for your [...] drive, operate heavy machinery, ride motorcycles or [employer] s, drink alcohol, or take other medication [...] constipation. Each day as directed: -Take an mctx-tpc-nknupsk product that has a stool softener & laxative in it such as Senokot S,colace. -Drink 6 to 8 glasses of water -Eat foods that are high in fiber such as fruits and vegetables. If you become constipated despite these measures, you may take a mild ijhz-dfi-pgocxma laxative, such as Milk of Magnesia or use a Dulcolax suppository. TRAUMA FOLLOW-UP AND HOME CARE INSTRUCTIONS ACTIVITY AND SAFE PAIN MEDICATION USE -Do not drive while taking pain medicine. -Do not take eaaz-nih-mpszbdi pain medicine of any type while taking [...] The Trauma Clinic is located at the [facility], [address]. Park in the Green parking garage. INCIDENTAL FINDINGS The purpose of this information is to document that you have been informed by the hospital and yourphysician/nurse practitioner about an abnormal finding while you were a patient on the Trauma Service at [facility]. You acknowledge that the trauma physician or [...] your primary care physician following discharge from [facility]. A referral to a specialty physician may [...] mild sore throat. You may use an srnj-mng-uulsjkt chloraseptic spray, gargle with warm salt water, [...] week after dc. LUISA received message from [facility] LUISA Baca ph; [phone] who stated that no home health agency is in network with the patient's insurance. LUISA requested that [facility] send this worker by fax a list of outpatient therapy agencies with in a 50 mile radius of the patient's home. Patient is in agreement for outpatient therapy. Await list of outpatient clinics to provide to the patient. LUISA placed ambulatory outpatient therapy order. Patient stated he can ride home in his father's car & would like to dc today. Resources Financial Resources: Other (Comment[facility] Discharge [facility] Shared UM/CC and RN [...] No Discharge Readiness Expected Discharge Date: 09/13/19 [facility] Disposition D/C Disposition: Home Related to Current Admission?: Yes Agency/Destination: [facility] Home Care Needs : Outpatient rehab HME: None Same As Recommended : yes Transportation Type: Auto Options Reviewed: Explained services/benefits, List provided Reason for Choice: Patient/Family preference * Blake Walter MD - 09/14/2019 11:49 AM EST Blake Walter MD [facility] Hospitalists DAILY PROGRESS NOTE Patient Name: Solomon Zamora PCP: Antolin Barron MD Perpetual Assessment: Solomon Zamora is a 44 y.o. male who presented from outside hospital on 09/07/2019 with rib fractures s/p fall. [facility] is consulted for medical management Assessment [...] [] Family Time Spent/CCM Time: * Renny Hyman, STOREROOM KEEPER - 09/14/2019 11:48 AM EST Physical Therapy [...] by assistance Lateral Transfers: Stand by assistance Delivery And Installation Subcontractor: 1 person, Gait belt Skilled Intervention: Pt [...] Bathroom Equipment: Shower chair Home Equipment: Cane, Supervisor Engine Assembly, Sock aid, Long-handled shoehorn Additional Comments: Reports ability to have his dad provide assist upon d/c if necessary Prior Level of Function Level of Rice: Independent with ADLs and functional transfers, Independent with homemaking with ambulation Lives With: Alone Receives Help From: (Pt's mom lives 1/4 a mile away) ADL Assistance: Independent Homemaking Assistance: Independent 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 Chart review per CM. CAR SEAT UPHOLSTERER Following patient's discharge. Per CAR SEAT UPHOLSTERER's notes, still awaiting response on patient's [facility] referral. Intake closed until 09/14/19. Attemptedto call Tracie pt's insurance CM at #[phone]. Tracie not in office today. Telephone call made to [facility] and spoke to Leilani [facility] Liaison, at # [phone] and [facility] referral bundle faxed to #[phone]. Awaiting return call pending acceptance. Patient's bedside RN, Christa, aware and physician aware. Discharge pending today or tomorrow depending on acceptance of [facility] by [facility] today or [facility] when they open tomorrow. Addendum 1436: Received return telephone call from Leilani [facility] Liaison, with [facility]. Pt unable to be accepted due to not having staffing for his area of residence. Pt's bedside, Christa,notified. Discharge plans for 09/14/19 pending acceptance from [facility]. * Paulina Hess DO - 09/13/2019 10:51 AM EST Paulina Hess DO [facility] Hospitalists DAILY PROGRESS NOTE Patient Name: Solomon Zamora PCP: Antolin Barron MD Perpetual Assessment: Solomon Zamora is a 44 y.o. male who presented from outside hospital on 09/07/2019 with rib fractures s/p fall. [facility] is consulted for medical management. Assessment [...] ordered DVT prophylaxis: Lovenox sq and SCDs Guideman: Dispo plan - pending Morbid obesity (HCC) [...] multiple R rib fractures, otherwise negative - [facility] CT C-spine negative for acute injury; C-spine cleared - [facility]: CXR - EKG NSR - Pain/nausea control [...] chest tube remains present. No definite pneumothorax. [facility] Workstation ID: [id number] XR Chest 1 View Final Result 1. Right-sided chest tube in place with no definite pneumothorax. Moderate, likely partially loculated right-sided pleural effusion is unchanged. 2. Background interstitial prominence and bilateral atelectatic changes, not significantly changed. [facility] Workstation ID: [id number] XR Chest 1 View Final Result 1. No pneumothorax. 2. Persistent right lung volume loss with a band of atelectasis in the right lung base and elevation of the right hemidiaphragm. [facility]/k Workstation ID: [id number] XR Chest 1 View Final Result 1. There is a chest tube in the right hemithorax. No pneumothorax. 2. Atelectasis throughout the right lung is stable. 3. No pleural effusion appreciated. [facility]/cdr Workstation ID: [id number] XR Chest 1 View Final Result There may be a tiny right apical pneumothorax. [facility] Workstation ID: [id number] XR Chest 1 View Final Result 1. Multiple right-sided rib fractures seen on the CT chest, abdomen and pelvis from [facility] on 09/07/2019 are not appreciable on this study. 2. Low lung volumes with bibasilar hypoventilation otherwise no acute process involving lungs. 3. Previously described small right pneumothorax is not appreciable on this study. [facility] Workstation ID: [id number] XR Comparison Import Final [...] Schmitz MD 09/13/2019 7:36 AM * Irma Medina, PT - 09/12/2019 3:50 PM EST Physical [...] Bathroom Equipment: Shower chair Home Equipment: Cane, Supervisor Engine Assembly, Sock aid, Long-handled shoehorn Additional Comments: Reports ability to have his dad provide assist upon d/c if necessary Prior Level of Function Level of Rice: Independent with ADLs and functional transfers, Independent with homemaking with ambulation Lives With: Alone Receives Help From: (Pt's mom lives 1/4 a mile away) ADL Assistance: Independent Homemaking Assistance: Independent 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 male who presented from outside hospital on 09/07/2019 with rib fractures s/p fall. [facility] is consulted for medical management. Assessment [...] Family Time Spent/CCM Time: * Saloni Frausto MSW LSW - 09/12/2019 9:41 AM EST DISCHARGE PLAN PROGRESS NOTE Date: 09/12/2019 Time: 9:41 AM CAR SEAT UPHOLSTERER following. REHAN received voicemail from Tracie pt's insurance CM ([phone]), stating she would perform research on finding in-network [facility] agencies for pt and requested if she could fax or email a list. CAR SEAT UPHOLSTERER left return voicemail requesting callback. Awaiting response. CAR SEAT UPHOLSTERER left message for [facility] ([phone]) intake requesting update on pt's referral. Awaiting response. Unsure of expected discharge date at this time. CAR SEAT UPHOLSTERER will continue to follow. Addendum 1:55 pm: CAR SEAT UPHOLSTERER spoke with on-call nurse with [facility] (Rima [phone]) she is not aware if they are in-network with pt's insurance that intake is not in until Saturday. CAR SEAT UPHOLSTERER will f/u. Patient Name: Solomon Zamora Date of : 1975 Sex: Male Discharge Readiness Expected Discharge Date: 09/13/19 [facility] Disposition D/C Disposition: Home Health Care Services Related to Current Admission?: Yes Agency/Destination: [facility] Home Care Needs : Home [...] ordered DVT prophylaxis: Lovenox sq and SCDs Guideman: Dispo plan - pending Morbid obesity (HCC) [...] - AM labs (09/08) reviewed, unremarkable - [facility] imaging: CT H, Cs, CAP, CXR with multiple R rib fractures, otherwise negative - [facility] CT C-spine negative for acute injury; C-spine cleared - [facility]: CXR - EKG NSR - Pain/nausea control - PT/OT when able - Dispo pending * Multiple closed fractures of ribs of right side Assessment & Plan [facility] CT CAP with mildly displaced R [...] Subcutaneous BID gabapentin 300 mg Oral Q8H [facility] hydroCHLOROthiazide 12.5 mg Oral Daily ipratropium-albuterol 3 mL Inhalation Once methocarbamol 750 mg Oral Q8H [facility] polyethylene glycol 17 g Oral Daily senna-docusate [...] chest tube remains present. No definite pneumothorax. [facility] Workstation ID: [id number] XR Chest 1 View Final Result 1. Right-sided chest tube in place with no definite pneumothorax. Moderate, likely partially loculated right-sided pleural effusion is unchanged. 2. Background interstitial prominence and bilateral atelectatic changes, not significantly changed. [facility]/hff Workstation ID: [id number] XR Chest 1 View Final Result 1. No pneumothorax. 2. Persistent right lung volume loss with a band of atelectasis in the right lung base and elevation of the right hemidiaphragm. [facility]/sjk Workstation ID: [id number] XR Chest 1 View Final Result 1. There is a chest tube in the right hemithorax. No pneumothorax. 2. Atelectasis throughout the right lung is stable. 3. No pleural effusion appreciated. [facility]/cdr Workstation ID: [id number] XR Chest 1 View Final Result There may be a tiny right apical pneumothorax. [facility]/trw Workstation ID: [id number] XR Chest 1 View Final Result 1. Multiple right-sided rib fractures seen on the CT chest, abdomen and pelvis from [facility] on 09/07/2019 are not appreciable on this study. 2. Low lung volumes with bibasilar hypoventilation otherwise no acute process involving lungs. 3. Previously described small right pneumothorax is not appreciable on this study. [facility]/hff Workstation ID: [id number] XR Comparison Import Final [...] pertinent imaging findings, and labs with the [facility] [place] trauma team. I agree with the findings [...] health care Anticipated Facility Type: Home care CAR SEAT UPHOLSTERER received call from [facility] admissions stating they are not in- network with patient's insurance. CAR SEAT UPHOLSTERER also called in referral to [facility] and left a voicemail requesting callback with fax number to send referral to. CAR SEAT UPHOLSTERER also called patient's insurance CM, Phuong ([phone]), and left voicemail requesting assistance with finding accurate in-network agencies. Addendum (4:09pm): [facility] unsure if they are in-network but agreeable to looking at referral, referral faxed. * Raine Jackson MD - 09/11/2019 1:19 PM EST Raine Jackson MD [facility] Hospital[facility] DAILY PROGRESS NOTE Patient Name: Solomon Zamora PCP: Antolin Barron MD Perpetual Assessment: Solomon Zamora is a 44 y.o. male who presented from outside hospital on 09/07/2019 with rib fractures s/p fall. [facility] is consulted for medical management. Assessment [...] [x] Medications [] Family Time Spent/CCM Time: Alex Farfan RN - 09/11/2019 9:19 AM EST COMPLEX DISCHARGE Date: 09/11/2019 Time: 9:19 AM Patient Name: Solomon Zamora Date of : 1975 Sex: Male Met with pt at bedside to discuss discharge planning. Pt requests HHC with [facility]. [facility] orders placed for PT/OT. Called Mary at [facility]. Mary states they will review and notify CM of decision. C referral bundle faxed. Pt denies further needs presently. Chest tube remains in place. Anticipate discharge Saturday or Saturday. Addendum 1020: Mary from [facility] states they are out of network and cannot accept. Called [facility] CM Phuong and left M with callback number requesting resources. HIPPA maintained. Addendum 1038: Provided a printed [facility] list from [facility] website to pt. Addendum 1208: Met with pt. Pt states to send referral to any [facility]. Sent referral to [facility] and attempted to call; no answer. Will attempt to call after 1300. Addendum 1258: Spoke with intake at [facility]; she requested referral to be faxed to [phone]. Fax complete. Discharge Plan Shared UM/CC and [...] No Discharge Readiness Expected Discharge Date: 09/13/19 [facility] Disposition D/C Disposition: Home Health Care Services Related to Current Admission?: Yes Agency/Destination: [facility] Needs : Home health care HME: None Transportation Type: Auto Options Reviewed: List provided Reason for Choice: Patient/Family preference * Lino Garcia CNP - 09/11/2019 7:33 AM EST Trauma Service [...] ordered DVT prophylaxis: Lovenox sq and SCDs Guideman: Dispo plan - pending * Multiple closed fractures of ribs of right side Assessment & Plan [facility] CT CAP with mildly displaced R [...] - AM labs (09/08) reviewed, unremarkable - [facility] imaging: CT H, Cs, CAP, CXR with multiple R rib fractures, otherwise negative - [facility] CT C-spine negative for acute injury; C-spine cleared - [facility]: CXR - EKG NSR - Pain/nausea control [...] Results from last 7 days Lab Units 09/10/1941009/09/19 0434 09/09/19 041 HGB g/dL 12.8* -- 13.3* HEMOGLOBIN BG [...] base and elevation of the right hemidiaphragm. [facility]/k Workstation ID: [id number] XR Chest 1 View Final Result 1. There is a chest tube in the right hemithorax. No pneumothorax. 2. Atelectasis throughout the right lung is stable. 3. No pleural effusion appreciated. [facility]/cdr Workstation ID: [id number] XR Chest 1 View Final Result There may be a tiny right apical pneumothorax. [facility] Workstation ID: [id number] XR Chest 1 View Final Result 1. Multiple right-sided rib fractures seen on the CT chest, abdomen and pelvis from [facility] on 09/07/2019 are not appreciable on this study. 2. Low lung volumes with bibasilar hypoventilation otherwise no acute process involving lungs. 3. Previously described small right pneumothorax is not appreciable on this study. [facility]/f Workstation ID: [id number] XR Comparison Import Final [...] patient. I discussed the case with the resident/CHIEF MEDIA OFFICER and agree with the findings and plan as documented in his/her note and/or any note I supplied. * Raine Jackson MD - 09/10/2019 2:31 PM EST aRine Jackson MD [facility] Hospitalists DAILY PROGRESS NOTE Patient Name: Solomon Zamora PCP: Antolin Barron MD Perpetual Assessment: Solomon Zamora is a 44 y.o. male who presented from outside hospital on 09/07/2019 with rib fractures s/p fall. [facility] is consulted for medical management. Assessment [...] Male Received call from LUISA Baca [employer] ([phone], at [facility]) requesting her info given to pt and to inform him she will touch base after d/c. Info placed on AVS. Discharge Readiness Expected Discharge Date: 09/11/19 [facility] Disposition HME: None Transportation Type: Auto Anticipated [...] ordered DVT prophylaxis: Lovenox sq and SCDs Guideman: Dispo plan - pending * Multiple closed fractures of ribs of right side Assessment & Plan [facility] CT CAP with mildly displaced R [...] - AM labs (09/08) reviewed, unremarkable - [facility] imaging: CT H, Cs, CAP, CXR with multiple R rib fractures, otherwise negative - [facility] CT C-spine negative for acute injury; C-spine cleared - [facility]: CXR - EKG NSR - Pain/nausea control [...] Scheduled Infusions: lactated Ringers 75 mL/hr (09/10/19 8917) PRN Med's: acetaminophen OR acetaminophen OR acetaminophen, [...] Results from last 7 days Lab Units 09/10/19410 WBC K/mcL 10.84 HGB g/dL 12.8* HCT % 38.5* PLT K/mcL 235 Results from last 7 days Lab Units 09/10/1941009/09/19 0434 09/09/19411 HGB g/dL 12.8* -- 13.3* HEMOGLOBIN BG g/dL -- 12.9* -- Coags: Results from last 7 days Lab Units 09/07/19 1643 INR 1.1 Results from last 7 days Lab Units 09/07/19 1643 INR 1.1 Chem: Results from last 7 days Lab Units 09/10/19 041 SODIUM mmol/L 135 POTASSIUM mmol/L 3.9 CHLORIDE mmol/L 95* BUN mg/dL 11 CREATININE mg/dL 0.43* CALCIUM mg/dL 8.8 GLUCOSE mg/dL 133* Results from last 7 days Lab Units 09/10/191 09/09/1941109/08/19 0457 CREATININE mg/dL 0.43* 0.43* 0.48* [...] may be a tiny right apical pneumothorax. [facility]/trw Workstation ID: [id number] XR Chest 1 View Final Result 1. Multiple right-sided rib fractures seen on the CT chest, abdomen and pelvis from [facility] on 09/07/2019 are not appreciable on this [...] patient. I discussed the case with the resident/CHIEF MEDIA OFFICER and agree with the findings and plan [...] 09/09/2019 2:02 PM EST Raine Jackson MD [facility] Hospitalists DAILY PROGRESS NOTE Patient Name: Solomon Zamora PCP: Antolin Barron MD Perpetual Assessment: Solomon Zamora is a 44 y.o. male who presented from outside hospital on 09/07/2019 with rib fractures s/p fall. [facility] is consulted for medical management. Assessment [...] shifts: I/O last 3 completed shifts: In: [I.V.:2073.] Out: 0 [Urine:1950; Blood:150; Chest Tube:570] Reviewed [...] No Discharge Readiness Expected Discharge Date: 09/14/19 [facility] Disposition HME: None Transportation Type: Auto * Breonna Pelaez, NAZARIO - 09/09/2019 6:44 AM EST Trauma Service [...] following DVT prophylaxis: Lovenox sq and SCDs Guideman: Dispo plan - pending Fall Assessment & [...] negative for acute injury; C-spine cleared - [facility]: CXR - EKG NSR - Pain/nausea control [...] Transdermal Daily methocarbamol 500 mg Oral Q8H [facility] polyethylene glycol 17 g Oral Daily senna-docusate [...] Results from last 7 days Lab Units 09/09/1943309/09/1941103/19 2104 HGB g/dL -- 13.3* -- HEMOGLOBIN [...] may be a tiny right apical pneumothorax. [facility]/tr Workstation ID: [id number] XR Chest 1 View Final Result 1. Multiple right-sided rib fractures seen on the CT chest, abdomen and pelvis from [facility] on 09/07/2019 are not appreciable on this study. 2. Low lung volumes with bibasilar hypoventilation otherwise no acute process involving lungs. 3. Previously described small right pneumothorax is not appreciable on this study. [facility]/f Workstation ID: [id number] XR Comparison Import Final [...] Tylenol and PRN Oxy at home - [place] removed from right chest wall surgical incision [...] year old male who initially presented to [facility] on 09/07/2019 S/P Fall. Injuries included Right [...] WOUND CLOSURE; Surgeon: Phoenix Chris MD; Location: [facility] Main OR; Service: General Surgery TONSILLECTOMY Social [...] file Gets together: Not on file Attends anabaptism service: Not on file Active member of [...] CXR prior to discharge from hospital. Procedures: Grace removed from right chest wall incision site [...] FoundDocuments on File Type Date Recorded Patient Men'S Designer Expl anation Advance Directives and Livin g Will 09/07/2019 3:34 PM Latest Code Status on File Code Status Date Activated Date Inactivated Comments Full Code 09/07/2019 4:54 PM Documents on File Type Date Recorded Patient Men'S Designer Expl anation Advance Directives and Livin g Will 09/07/2019 3:34 PM Advance Directives and Livin g Will 10/23/2019 12:25 PM Documents on File Type Date Recorded Patient Men'S Designer Expl anation Advance Directives and Living Will Power of Medical Record Technician Documents on File Type Date Recorded Patient Men'S Designer Expl anation ACP-Advance Directive ACP-Power of Medical Record Technician Latest Code Status on File Code Status Date Activated Date Inactivated Comments Full Code 07/26/2020 7:41 AM Latest Code Status on File Code Status Date Activated Date Inactivated Comments Full Code 07/26/2020 7:41 AM 07/26/2020 11:28 AM Documents on File Type Date Recorded Patient Men'S Designer Expl anation Advance Directives and Livin g [...] Log into your personal health record on [email or web address] and enter B979 in the Education box to learn more about Learning About Using an Incentive Spirometer. Current as of: March 15, 2019 Content Version: 12.3 5140-6638 [employer]. Care instructions adapted under license by your healthcare professional. If you have questions about a medical condition or this instruction, always ask your healthcare professional. [employer] disclaims any warranty or liability for your [...] your doctor if you can take an gwhn-gdd-[id number] medicine. Even if it hurts, try to [...] Log into your personal health record on [email or web address] Apps and enter M135 in the Education box to learn more about Broken Rib: Care Instructions. Current as of: April 01, 2019 Content Version: 12.3 5207-4759 [employer]. Care instructions adapted under license by your healthcare professional. If you have questions about a medical condition or this instruction, always ask your healthcare professional. [employer] disclaims any warranty or liability for your [...] your doctor if you can take an ycwt-pfz-rwvodve medicine. If your doctor prescribed antibiotics, take [...] Log into your personal health record on https://The Paper Store.ArtBinder and enter P342 in the Education box to learn more about Wound Check: Care Instructions. Current as of: April 01, 2019 Content Version: 12.3 4228-7585 [employer]. Care instructions adapted under license by your healthcare professional. If you have questions about a medical condition or this instruction, always ask your healthcare professional. [employer] disclaims any warranty or liability for your [...] The Trauma Clinic is located at the [facility], [address]. [facility]. documented in this encounter Medications [...] Shoulder Left Without Contrast Rowan Jackson PA-C [address] [facility] [address] [place] [address] Status Reason Specialty Diagnoses / Procedures Referre d By Contact Referred To Contact Closed Radiology Diagnoses Contusion of right scapula, initial encounter Procedures MR Shoulder Right Without Contrast Rowan Jackson PA-C [address] [place] [address] Reason Comments Fall Rib Injury fx with [...] calories (HCC) Procedures [employer], [facility] [address] [place] [address] [facility] [address] [address] [address] [place] [address] Referral ID Status Reason Start Date Expiration Date V isits Requested Visits Authorized [id number] Pending Review 01/07/2023 01/07/2024 1 1 Reason Onset Date Comments Financial File/Initial scheduling orders 023 Reason Onset Date Comments Financial File/Initial scheduling orders 023 Reason Onset Date Comments Financial File/Initial sched uling orders 06/11/2023 Withdrawal 10/01/2023 Opted out of enrique gical program - switch to non -surg Phoenix Chris MD - 09/08/2019 9:26 AM [...] no C Spine Imaging: Negative for injury. ([facility] CT C-spine) C Spine Cleared per NEXUS criteria. Fall Assessment & Plan Mechanical fall (slipped on ice) from deer/tree stand (4-6 feet high) onto anterior abdomen. No head strike, no LOC, no AC/AP. - On exam, GCS 15. No focal neurological deficits. HDS. - Trauma labs pending - [facility] imaging: CT H, Cs, CAP, CXR - [facility] CT C-spine negative for acute injury; C-spine cleared - [facility]: CXR - EKG NSR - C-spine cleared [...] AC/AP. Patient was initially evaluated at an [facility] ([place]) where imaging demonstrated R lateral 3rd-8th rib fractures with a small R PTX and trace R pleural effusion. He was transferred to [facility] for further evaluation. History: Past Medical, Surgical, [...] file Gets together: Not on file Attends anabaptism service: Not on file Active member of [...] joint edema, MOEx4, 5/5 strength with hand seat builder and foot dorsi/plantar flexion bilaterally, sensation [...] Croft, PT - 09/09/2019 10:21 AM Janett Olmstead, OT - 09/09/2019 10:19 AM Alex Lacy [...] to Stand: Contact guard, Stand by assistance Delivery And Installation Subcontractor: 1 person, Gait belt Gait/Locomotion Gait Assistance: Stand by assistance Assistive Device: None Distance: 10 Feet(x 3) Pattern: R decreased step length, L decreased step length, Wide base of support, Decreased trunk rotation Home Living Type of Home: House Home Layout: One level, Stairs to enter without rails(2 MARCIO) Bathroom Shower/Tub: Walk-in shower Bathroom Toilet: Standard Bathroom Equipment: Shower chair Home Equipment: Cane, Supervisor Engine Assembly, Sock aid, Long-handled shoehorn Additional Comments: Reports ability to have his dad provide assist upon d/c if necessary Prior Level of Function Level of Rice: Independent with ADLs and functional transfers, Independent with homemaking with ambulation Lives With: Alone Receives Help From: (Pt's mom lives 1/4 a mile away) ADL Assistance: Independent Homemaking Assistance: Independent 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 The patient's home setup is a rn labor and delivery and family/caregiver support is a rn labor and delivery for return to prior level of function. The patient's compliance is a rn labor and delivery, awareness of own capacity and performance is a barrier and awareness of own capacity and performance is a rn labor and delivery to return to prior level of function. 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 PT/OT pending. CC will follow. Discharge Plan Shared UM/CC and [...] IP CONSULT TO HOSPITALIST Bryce Arevalo MD [facility] Hospitalists Medical Consultation Patient Name:Solomon Zamora MR #:[id number] :1975 Admit Date: 12011015 Physicians: Antolin Barron MD (Family); David Leyva DO (Referring) Perpetual Assessment: Solomon Zamora is a 44 y.o. male who presented from [facility] ER on 09/07/2019 after a fall, admitted to trauma, COP consulted for medical management ASSESSMENT AND PLAN [...] should be done as it would not knife changer. There is inherent risk with any surgery [...] file Gets together: Not on file Attends anabaptism service: Not on file Active member of [...] 7503. Rn to transport. ED PROVIDER NOTE [facility] EMERGENCY DEPARTMENT NAME: Solomon Zamora AGE: 44 y.o. : 1975 VISIT DATE: 09/07/2019 CSN: [id number] PCP: Antolin Barron MD Chief Complaint Patient [...] file Gets together: Not on file Attends anabaptism service: Not on file Active member of [...] 44-year-old male arrives as a transfer from [facility] facility for multiple rib fractures. Patient had a [...] 1614 Transfer Center Note: Call from David Tolentino Leyva, Contact Role: Referring Provider Entered By: Sue Wong RN Updated By: Sue Wong RN MD states Pt fel from a tree stand and landed on right side of chest. Pt with multiple rib fractures and pulmonary contusion. TC initiated conference call with trauma per protocol. Bed: 87 Expected date: Expected time: Means of arrival: Comments: Lifesupport/ref-alexandra/sunny documented in this encounter Plan of Care - Luis Baeza RN - 09/14/2019 2:08 [...] discharged by wheelchair to private car per [facility]. Personal belongings taken by patients family member. [...] be timed for 1700. Breonna PINEDA AGACNP-BC [facility] Trauma Services Contact: Aviva/sterling [phone] Associated Problem(s): Morbid obesity (HCC) Noted on [...] evacuation of hemothorax. 5. Chest tube placement, 28-Guamanian. ED TX: Iv morphine, lidocaine patch DX/ASSESSMENT / PLAN: Fall Assessment & Plan Mechanical fall (slipped on ice) from deer/tree stand (4-6 feet high) onto anterior abdomen. No head strike, no LOC, no AC/AP. - On exam, GCS 15. No focal neurological deficits. HDS. - AM labs (09/08) reviewed, unremarkable - [facility] imaging: CT H, Cs, CAP, CXR with multiple R rib fractures, otherwise negative - [facility] CT C-spine negative for acute injury; C-spine cleared - [facility]: CXR - EKG NSR - C-spine cleared - Admit to STICU - Pain/nausea control - PT/OT when able - Dispo pending * Multiple closed fractures of ribs of right side Assessment & Plan [facility] CT CAP with mildly displaced R [...] the OR. Will follow up on 09/09. SOLOMON ZAMORA [facility] [id number] 1975 DATE 09/08/2019 OPERATIVE REPORT SURGEON PHOENIX CHRIS MD INSPECTOR AND CLERK JOSE RAE MD, RESIDENT PREOPERATIVE DIAGNOSES 1. [...] evacuation of hemothorax. 5. Chest tube placement, 28-Guamanian. BLOOD LOSS 100 cc. COMPLICATIONS None. INDICATIONS [...] saline, and then I place a 28- Guamanian chest tube and bring out through a separate stab incision in the 7th intercostal space. This is secured with an 0 Prolene suture. I now begin closing the serratus anterior musculature using interrupted 2-0 Vicryl suture in [id number] fashion. The serratus musculature is also anesthetized [...] well. PHOENIX CHRIS MD D 09/08/2019 14:08 [id number] T 09/08/2019 16:40 KIS/MODL Pt. In too small of a bed pt. Placed in a bariatric bed also placed on bipap Brief Post Operative Note Patient Name: Solomon Zamora : 1975 (44 y.o.) Date of Service: 09/08/2019 CSN: [id number] Procedure(s): THORACOPLASTY WITH RIB FIXATION 3,4,5,7 AND 8, COMPLEX WOUND CLOSURE Pre-Operative Diagnoses: * Rib fractures Post-Operative Diagnoses: * Closed fracture of multiple ribs of right side, initial encounter [S22.41XA] Surgeon(s) and Role: * Phoenix Chris MD - Primary * Jose Rae MD - Resident - Assisting Anesthesiologist: Ta Berger MD OUTSIDE INSTALLER APPRENTICE: Bryce Morgan CRNA Towel Rolling Machine Operator: Ellen Carvalho RN Towel Rolling Machine Operator Relief: Joyce Weber RN Relief Scrub: Joyce Weber RN Scrub Person: ST Yi Potline Monitor: Shanel Sebastian Operative findings: right ribs 3,4,5,7,8 fractures s/p plate and screw fixation, evacuation of hemothorax, 28 Fr chest tube, intercostal block w/ liposomal bupivacaine, complex wound closure Intra and immediate post-operative complications: none Type of anesthesia used: General Estimated blood loss: 150 mL Estimated urine output: Specimen(s): * No specimens in log * Implant(s): Implant Name Type Inv. Item Serial No. Tax Accounting Manager Lot No. LRB No. Used Action 50 mm U Plus Rib Plate [id number] Right 5 Implanted Drain(s): * No LDAs [...] DVT prophylaxis: SCDs, Lovenox 40 mg BID Guideman: Dispo plan - pending Fall Assessment & Plan Mechanical fall (slipped on ice) from deer/tree stand (4-6 feet high) onto anterior abdomen. No head strike, no LOC, no AC/AP. - On exam, GCS 15. No focal neurological deficits. HDS. - AM labs (09/08) reviewed, unremarkable - [facility] imaging: CT H, Cs, CAP, CXR with multiple R rib fractures, otherwise negative - [facility] CT C-spine negative for acute injury; C-spine cleared - [facility]: CXR - EKG NSR - C-spine cleared - Admit to STICU - Pain/nausea control - PT/OT when able - Dispo pending * Multiple closed fractures of ribs of right side Assessment & Plan [facility] CT CAP with mildly displaced R [...] edema, BONNIE x4, 5/5 strength with hand seat builder and foot dorsi/plantar flexion bilaterally, sensation intact, neurovascular intact Skin: Skin warm, dry and grossly intact, no obvious rashes or lesions noted Laboratory Studies: Recent laboratory studies reviewed CBC: Results from last 7 days Lab Units 09/08/19456 WBC K/mcL 9.61 HGB g/dL 13.6 HCT % 41.4 PLT K/mcL 217 Results from last 7 days Lab Units 09/08/197 09/07/19 1643 HGB g/dL 13.6 14.8 Coags: Results from last 7 days Lab Units 09/07/19 1643 INR 1.1 Results from last 7 days Lab Units 09/07/19 1643 INR 1.1 Chem: Results from last 7 days Lab Units 09/08/19456 SODIUM mmol/L 136 POTASSIUM mmol/L 3.8 CHLORIDE mmol/L 100 BUN mg/dL 15 CREATININE mg/dL 0.48* CALCIUM mg/dL 9.1 GLUCOSE mg/dL 127* Results from last 7 days Lab Units 09/08/197 09/07/19 1643 CREATININE mg/dL 0.48* 0.46* Diagnostic Imaging: Recent diagnostic imaging/reports reviewed XR Chest 1 View Final Result 1. Multiple right-sided rib fractures seen on the CT chest, abdomen and pelvis from [facility] on 09/07[facility]2019 are not appreciable on this study. 2. Low lung volumes with bibasilar hypoventilation otherwise no acute process involving lungs. 3. Previously described small right pneumothorax is not appreciable on this study. [employer] Workstation ID: [id number] XR Comparison Import Final [...] 15. No focal neurological deficits. HDS. - [facility] imaging: CT H, Cs, CAP, CXR with multiple R rib fractures, otherwise negative - [facility] CT C-spine negative for acute injury; C-spine cleared - [facility]: CXR - Pain/nausea controlled - PT/OT - Dispo plan home today with [facility] I personally evaluated and examined the patient. I discussed the patient with CHIEF MEDIA OFFICER/PA/resident. I agree with the CHIEF MEDIA OFFICER/PA/resident's treatment plan. I agree with the CHIEF MEDIA OFFICER/PA/resident's plan of care. I agree with the CHIEF MEDIA OFFICER/PA/resident's disposition as documented. If the patient was [...] mg (8 mg Intravenous Given 09/07/19 1543) Transfer Center Advanced Practice Provider Trauma Transfer [...] Right chest hematoma OTHER MEDICAL PROBLEMS: obese Rezkqfly-[id number]-Uoczpqfh communication has occurred between the on-call Transfer Center [facility] and the following referring provider: REFERRING PROVIDER CONTACT INFORMATION: Provider: Dr. Leyva Department: ED Referring Facility: [facility] The patient will be accepted by the trauma attending/team at the following facility: ACCEPTING PHYSICIAN CONTACT INFORMATION: Accepting Facility: [facility] Destination: Transport to ED If planned direction admission, recommended level of care: N/A Does Patient meet Level One Trauma Activation Criteria?: No HPI (Events over past 24 hours): Patient fell apprx 6feet from tree stand, falling forward. Struck chest. Has had severe pain limiting evaluation. Transfer to [facility] for evaluation. PHYSICAL EXAM (Pertinent positive findings): [...] Tylenol and PRN Oxy at home - [place] removed from right chest wall surgical incision [...] DATE CREATED AUTHOR AUTHOR'S ORGANIZ ATION 10/24/2019 [facility] DATE CREATED AUTHOR AUTHOR'S ORGANIZ ATION 12/02/2019 [facility] DATE CREATED AUTHOR AUTHOR'S ORGANIZ ATION 10/18/2020 [facility] DATE CREATED AUTHOR AUTHOR'S ORGANIZ ATION 10/29/2020 [facility] DATE CREATED AUTHOR AUTHOR'S ORGANIZ ATION 01/01/2023 [facility] DATE CREATED AUTHOR AUTHOR'S ORGANIZ ATION 12/12/2023 [facility] Source Comments (unrecognize d section and content) In the event this informatio n is protected by the Federal Confidentiality of Alcohol and Drug Abuse Patient Records regulations: The Federal rules restrict any use of the information to criminally investigate or prosecute any alcohol or drug abuse patient.[facility] Care Teams (unrecognized sec tion and content) Family Practitioner Relationship Specialty Start Date End Date Antolin Barron [address] [place] [phone] PCP - General 04/05/20 Family Practitioner Relationship Specialty Start Date End Date Antolin Barron [address] [place] [phone] PCP - General 04/05/20 Brigitte Pathak MD [address] [place] [address] [address] [place], [place] [id number] Surgeon General Surgery 03/11/23 Family Practitioner Relationship Specialty Start Date End Date Antolin Barron [address] [place] [phone] PCP - General 04/05/20 Brigitte Pathak MD [address] [place] [address] [address] [place], [place] [phone] Surgeon General Surgery 03/11/23 Family Practitioner Relationship Specialty Start Date End Date Antolin Barron [address] [place] [phone] PCP - General 04/05/20 Brigitte Pathak MD [address] [place] [address] [address] [place], [place] [phone] Surgeon General Surgery 03/11/23 Family Practitioner Relationship Specialty Start Date End Date Antolin Barron [address] [place] [phone] PCP - General 04/05/20 Brigitte Pathak MD [address] [place] [address] [address] [place], [place] [id number] Surgeon General Surgery 03/11/23 Family Practitioner Relationship Specialty Start Date End Date Antolin Barron [address] [place] [phone] PCP - General 04/05/20 Brigitte Pathak MD [address] [place] [id number] Surgeon General Surgery 03/11/23 Family Practitioner Relationship Specialty Start Date End Date Antolin Barron [address] [place] [phone] [facility] General 04/05/20 Brigitte Pathak MD [address] [place] [id number] Surgeon General Surgery 03/11/23 FOR RECORDS PERTAINING [...] BE BASED ON THE PRIMARY CLINICAL RECORDS. [facility] [employer] [facility]. provides no warranty or guarantee of the accuracy or completeness of information in this document.
[2023-12-13 09:34] LABS: Absolute Lymphocyte Count 2.48 X10^3/uL (0.83-4.51); Absolute Neutrophil Count 4.1 X10^3/uL (2.0-7.7); Basophil# 0.05 X10^3/uL; Basophil% 0.7 % (0-1); Eosinophil# 0.16 X10^3/uL; Eosinophils% 2.2 % (0-5); Hematocrit 43.5 % (40-54); Hemoglobin 14.1 g/dL (13.0-16.5); Lymphocyte # 2.48 X10^3/ul (0.83-4.51); Lymphocyte % 33.4 % (19-41); Mean Corp Hgb Conc 32.4 g/dL (32-36); Mean Corpuscular Hgb 29.3 pg (27.0-32.0); Mean Corpuscular Volume 90.4 fL (80-94); Mean Platelet Vol. 9.7 fl (6.2-12.0); Monocyte# 0.61 X10^3/uL; Monocyte% 8.2 % (0-10); NRBC Flagged by Analyzer 0 % (0-5); Neutrophil % 55.1 % (47-70); Platelet Count 235 K/mm3 (150-450); RBC Distribution Width CV 14.5 % (11.6-14.6); RBC Distribution Width SD 48.1 fl (35.1-43.9); Red Blood Count 4.81 M/mm3 (4.6-6.2); White Blood Count 7.4 K/mm3 (4.4-11.0)
[2023-12-13 09:59] LABS: Vitamin D,25 Hydroxy 16.2 ng/mL
[2023-12-13 10:01] LABS: ALB/GLOB Ratio 0.9 RATIO (0.9-2.4); AST(SGOT) 27 U/L (15-37); Alanine Aminotransfer ALT/SGPT 45 U/L (16-61); Albumin, Serum 3.5 g/dL (3.2-5.0); Alkaline Phosphatase 55 U/L (45-117); Anion Gap 5 (5-15); BUN 19 mg/dL (7-18); BUN/Creat Ratio 35.3 RATIO (10-20); Chloride 110 mmol/L (98-107); Cholesterol 175 mg/dL (200); Creatinine, Serum 0.54 mg/dL (0.70-1.30); EST Glomerular Filtration Rate 174 mL/min (>60); Est Glom Filt Rate - Afr Amer 210 mL/min (>60); Globulin 3.8 g/dL (2.2-4.2); Glucose 114 mg/dL (74-106); High Density Lipoprotein 42 mg/dL; Potassium 4.2 mmol/L (3.5-5.1); Protein, Total 7.3 g/dL (6.4-8.2); Sodium Level 137 mmol/L (136-145); Triglycerides 176 mg/dL; Very Low Density Lipoprotein 35 mg/dL (5-40)
== END | disposition home or self-care (01) ==
PROVIDERS: PCP Nurse Practitioner Family; Referring Provider Nurse Practitioner Family; Visit Provider Nurse Practitioner Family
DX: Z00.00 Encounter for general adult medical examination without abnormal findings (principal); E55.9 Vitamin D deficiency, unspecified; Z12.5 Encounter for screening for malignant neoplasm of prostate
CPT/HCPCS: 36415; 80053; 80061; 82306; 84153; 85025; G0103

== ENCOUNTER → 2024-06-11 | Outpatient (CLI) | payer OTHER, SELFPAY ==
[2024-06-11 16:51] LABS: Hematocrit 41.8 % (40-54); Hemoglobin 14.3 g/dL (13.0-16.5); Mean Corp Hgb Conc 34.2 g/dL (32-36); Mean Corpuscular Volume 87.6 fL (80-94); Mean Platelet Vol. 9.4 fl (6.2-12.0); Platelet Count 258 K/mm3 (150-450); RBC Distribution Width CV 15.2 % (11.6-14.6); Red Blood Count 4.77 M/mm3 (4.6-6.2); White Blood Count 6.1 K/mm3 (4.4-11.0)
[2024-06-11 17:11] LABS: Vitamin B12 973 pg/mL (211-911)
[2024-06-11 17:25] LABS: ALB/GLOB Ratio 1.2 RATIO (0.9-2.4); AST(SGOT) 21 U/L (15-37); Alanine Aminotransfer ALT/SGPT 47 U/L (16-61); Alkaline Phosphatase 61 U/L (45-117); Anion Gap 8 (5-15); BUN 20 mg/dL (7-18); Calcium,Total 9.8 mg/dL (8.5-10.1); Chloride 105 mmol/L (98-107); Creatinine, Serum 0.77 mg/dL (0.70-1.30); EST Glomerular Filtration Rate 115 mL/min (>60); Est Glom Filt Rate - Afr Amer 139 mL/min (>60); Ferritin 746 ng/mL (26-388); Globulin 3.2 g/dL (2.2-4.2); Glucose 100 mg/dL (74-106); Iron 95 ug/dL (65-175); Magnesium 1.9 mg/dL (1.6-2.6); Potassium 3.2 mmol/L (3.5-5.1); Protein, Total 7.2 g/dL (6.4-8.2); Sodium Level 140 mmol/L (136-145)
[2024-06-15 01:06] LABS: Zinc, WHOLE BLOOD 629 ug/dL (440-860)
== END | disposition home or self-care (01) ==
LOC: LAB 15:58
PROVIDERS: PCP Nurse Practitioner Family; Referring Provider Surgery; Visit Provider Surgery
DX: E53.8 Deficiency of other specified B group vitamins (principal); E66.01 Morbid (severe) obesity due to excess calories; Z68.44 Body mass index [BMI] 60.0-69.9, adult; E61.7 Deficiency of multiple nutrient elements; Z98.84 Bariatric surgery status; G47.33 Obstructive sleep apnea (adult) (pediatric); I10 Essential (primary) hypertension; K21.00 Gastro-esophageal reflux disease with esophagitis, without bleeding
CPT/HCPCS: 36415; 80053; 82607; 82728; 82746; 83540; 83735; 84630; 85027

== ENCOUNTER → 2024-08-07 | Outpatient (CLI) | payer OTHER, SELFPAY ==
[2024-08-07 16:11] LABS: Hematocrit 41.9 % (40-54); Hemoglobin 14.4 g/dL (13.0-16.5); Mean Corp Hgb Conc 34.4 g/dL (32-36); Mean Corpuscular Hgb 30.9 pg (27.0-32.0); Mean Corpuscular Volume 89.9 fL (80-94); Platelet Count 141 K/mm3 (150-450); RBC Distribution Width SD 49.6 fl (35.1-43.9); Red Blood Count 4.66 M/mm3 (4.6-6.2); White Blood Count 8.6 K/mm3 (4.4-11.0)
[2024-08-07 16:59] LABS: Vitamin B12 826 pg/mL (211-911)
[2024-08-07 17:20] LABS: ALB/GLOB Ratio 1.2 RATIO (0.9-2.4); AST(SGOT) 15 U/L (15-37); Alanine Aminotransfer ALT/SGPT 32 U/L (16-61); Albumin, Serum 4.1 g/dL (3.2-5.0); Alkaline Phosphatase 77 U/L (45-117); Anion Gap 7 (5-15); BUN 23 mg/dL (7-18); BUN/Creat Ratio 32.4 RATIO (10-20); Calcium,Total 9.7 mg/dL (8.5-10.1); Chloride 105 mmol/L (98-107); Creatinine, Serum 0.71 mg/dL (0.70-1.30); EST Glomerular Filtration Rate 126 mL/min (>60); Est Glom Filt Rate - Afr Amer 153 mL/min (>60); Ferritin 533 ng/mL (26-388); Globulin 3.4 g/dL (2.2-4.2); Glucose 93 mg/dL (74-106); Iron 80 ug/dL (65-175); Magnesium 2.2 mg/dL (1.6-2.6); Potassium 3.5 mmol/L (3.5-5.1); Protein, Total 7.5 g/dL (6.4-8.2); Sodium Level 136 mmol/L (136-145)
[2024-08-12 04:08] LABS: Zinc, WHOLE BLOOD 680 ug/dL (440-860)
== END | disposition home or self-care (01) ==
LOC: LAB 15:50
PROVIDERS: PCP Nurse Practitioner Family; Referring Provider Surgery; Visit Provider Surgery
DX: E61.7 Deficiency of multiple nutrient elements (principal); Z98.84 Bariatric surgery status; G47.33 Obstructive sleep apnea (adult) (pediatric)
CPT/HCPCS: 36415; 80053; 82607; 82728; 82746; 83540; 83735; 84630; 85027

== ENCOUNTER → 2024-10-26 | Outpatient (CLI) | payer OTHER, SELFPAY ==
[2024-10-26 09:24] LABS: Hematocrit 43.6 % (40-54); Hemoglobin 14.7 g/dL (13.0-16.5); Mean Corp Hgb Conc 33.7 g/dL (32-36); Mean Corpuscular Hgb 30.6 pg (27.0-32.0); Mean Corpuscular Volume 90.8 fL (80-94); Mean Platelet Vol. 9.4 fl (6.2-12.0); Platelet Count 256 K/mm3 (150-450); RBC Distribution Width CV 13.9 % (11.6-14.6); RBC Distribution Width SD 46.5 fl (35.1-43.9); White Blood Count 5.9 K/mm3 (4.4-11.0)
[2024-10-26 09:46] LABS: Vitamin B12 1204 pg/mL (211-911); Vitamin D,25 Hydroxy 36.6 ng/mL
[2024-10-26 09:57] LABS: ALB/GLOB Ratio 1.1 RATIO (0.9-2.4); AST(SGOT) 16 U/L (15-37); Alanine Aminotransfer ALT/SGPT 28 U/L (16-61); Albumin, Serum 3.9 g/dL (3.2-5.0); Alkaline Phosphatase 88 U/L (45-117); Anion Gap 5 (5-15); BUN 12 mg/dL (7-18); BUN/Creat Ratio 16.3 RATIO (10-20); Calcium,Total 9.6 mg/dL (8.5-10.1); Chloride 106 mmol/L (98-107); Cholesterol 181 mg/dL (200); Creatinine, Serum 0.74 mg/dL (0.70-1.30); EST Glomerular Filtration Rate 121 mL/min (>60); Est Glom Filt Rate - Afr Amer 146 mL/min (>60); Ferritin 580 ng/mL (26-388); Globulin 3.7 g/dL (2.2-4.2); Glucose 98 mg/dL (74-106); High Density Lipoprotein 49 mg/dL; Iron 134 ug/dL (65-175); Potassium 3.9 mmol/L (3.5-5.1); Protein, Total 7.6 g/dL (6.4-8.2); Sodium Level 142 mmol/L (136-145); Triglycerides 191 mg/dL; Very Low Density Lipoprotein 38 mg/dL (5-40)
[2024-10-30 08:10] LABS: Vitamin B1, Thiamine 132.6 nmol/L (66.5-200.0); Zinc, Plasma or Serum 68 ug/dL (44-115)
== END | disposition home or self-care (01) ==
PROVIDERS: PCP Nurse Practitioner Family; Referring Provider Physician Assistant; Visit Provider Physician Assistant
DX: E53.8 Deficiency of other specified B group vitamins (principal); E66.01 Morbid (severe) obesity due to excess calories; Z68.43 Body mass index [BMI] 50.0-59.9, adult; E61.7 Deficiency of multiple nutrient elements; Z98.84 Bariatric surgery status; G47.33 Obstructive sleep apnea (adult) (pediatric); I10 Essential (primary) hypertension
CPT/HCPCS: 36415; 80053; 80061; 82306; 82607; 82728; 82746; 83540; 83735; 84425; 84630; 85027